=== PATIENT | male | born 1960 | race Caucasian/White ===

== ENCOUNTER → 2018-08-01 13:54 | Outpatient (CLI) | payer MEDICARE, MEDICAID, SELFPAY ==
[2018-08-01 14:37] LABS: Add Manual Diff / Slide Review NO; Eosinophils Percent Auto 3.4 % (2-4); Hematocrit 45.8 % (41-53); Hemoglobin 15.6 g/dL (13.5-17.5); Lymphocytes Percent Auto 23.5 % (25-40); Mean Corpuscular Hemoglobin 32.7 PG (26-34); Mean Corpuscular Volume 95.9 fL (80-100); Monocytes Percent Auto 10.1 % (3-14); Neutrophils Absolute Auto 4200 /uL (3000-5900); Platelet Count 194 X10^3/uL (150-400); Red Blood Cell Count 4.78 X10^6/uL (4.5-5.9); Red Cell Distribution Width 12.7 % (11.6-14.8); White Blood Cell Count 6.8 X10^3/uL (4.5-11.0)
[2018-08-01 14:52] LABS: Alanine Aminotransferase 48 IU/L (21-72); Albumin 4.6 g/dL (3.5-5.0); Albumin Globulin Ratio 1.6 (1.0-2.8); Alkaline Phosphatase 72 U/L (38-126); Aspartate Aminotransferase 31 IU/L (17-59); Bilirubin Total 0.8 mg/dL (0.2-1.3); Blood Urea Nitrogen 12 mg/dL (9-20); Calcium 9.2 mg/dL (8.4-10.2); Carbon Dioxide 28 mmol/L (22-32); Chloride 104 mmol/L (98-107); Estimated Glomerular Filt Rate > 60.0 mL/min (>60); Globulin 2.9 g/dL (1.7-4.1); Glucose 92 mg/dL (70-100); HEMOLYSIS < 15 (0-50); Potassium 3.6 mmol/L (3.4-5.1); Sodium 141 mmol/L (137-145); Total Protein 7.5 g/dL (6.3-8.2)
== END ==
PROVIDERS: Family Provider Internal Medicine; PCP Internal Medicine; Visit Provider Internal Medicine
DX: J44.9 Chronic obstructive pulmonary disease, unspecified (principal); K52.9 Noninfective gastroenteritis and colitis, unspecified
CPT/HCPCS: 36415; 80053; 85025

== ENCOUNTER → 2019-09-01 14:47 | Outpatient (CLI) | payer MEDICARE, MEDICAID, SELFPAY ==
[2019-09-01 15:59] LABS: Alanine Aminotransferase 34 IU/L (<50); Albumin 4.6 g/dL (3.5-5.0); Albumin Globulin Ratio 1.6 (1.0-2.8); Alkaline Phosphatase 80 U/L (38-126); Aspartate Aminotransferase 36 IU/L (17-59); BUN Creatinine Ratio 12.5 (6-22); Bilirubin Total 1.2 mg/dL (0.2-1.3); Blood Urea Nitrogen 10 mg/dL (9-20); Calcium 9.7 mg/dL (8.4-10.2); Carbon Dioxide 30 mmol/L (22-32); Chloride 101 mmol/L (98-107); Cholesterol 186 mg/dL (140-199); Estimated Glomerular Filt Rate > 60.0 mL/min (>60); Globulin 2.8 g/dL (1.7-4.1); Glucose 98 mg/dL (80-110); HDL Cholesterol 64 mg/dL (40-60); HEMOLYSIS < 15 (0-50); LDL Cholesterol Calculated 94 mg/dL (<100); Potassium 3.8 mmol/L (3.4-5.1); Sodium 140 mmol/L (137-145); Total Protein 7.4 g/dL (6.3-8.2); Triglycerides 139 mg/dL (35-150)
== END ==
PROVIDERS: PCP Internal Medicine; Visit Provider Internal Medicine
DX: E78.2 Mixed hyperlipidemia (principal); I10 Essential (primary) hypertension; J44.9 Chronic obstructive pulmonary disease, unspecified
CPT/HCPCS: 36415; 80053; 80061

== ENCOUNTER → 2021-01-13 14:07 | Outpatient (CLI) | payer MEDICARE, SELFPAY ==
[2021-01-13 17:56] LABS: Alanine Aminotransferase 33 IU/L (<50); Albumin Globulin Ratio 1.3 (1.0-2.8); Alkaline Phosphatase 85 U/L (38-126); Aspartate Aminotransferase 44 IU/L (17-59); BUN Creatinine Ratio 12.8 (6-22); Bilirubin Total 0.6 mg/dL (0.2-1.3); Blood Urea Nitrogen 10 mg/dL (9-20); Calcium 9.1 mg/dL (8.4-10.2); Carbon Dioxide 34 mmol/L (22-32); Chloride 101 mmol/L (98-107); Estimated Glomerular Filt Rate > 60.0 mL/min (>60); Globulin 3.1 g/dL (1.7-4.1); Glucose 107 mg/dL (80-110); HEMOLYSIS < 15 (0-50); Potassium 3.7 mmol/L (3.4-5.1); Sodium 139 mmol/L (137-145); Total Protein 7.1 g/dL (6.3-8.2)
== END ==
PROVIDERS: PCP Internal Medicine; Referring Provider Internal Medicine; Visit Provider Internal Medicine
DX: E78.2 Mixed hyperlipidemia (principal); I10 Essential (primary) hypertension; J44.9 Chronic obstructive pulmonary disease, unspecified
CPT/HCPCS: 36415; 80053

== ENCOUNTER → 2021-07-12 11:38 | Outpatient (CLI) | payer MEDICARE, MEDICAID, SELFPAY ==
--- NOTE | 2021-07-12 11:40 | DI.MRI.S_ITS ---
PROCEDURE: MR KNEE RT WO CON INDICATIONS: Pain in right knee TECHNIQUE: Noncontrast sagittal PD fast spin echo and T2 fast spin echo with fat saturation, sagittal 3-D FLASH with fat saturation; coronal T1 spin echo and PD fast spin echo with fat saturation, and axial PD fast spin echo with fat saturation through the knee. COMPARISON: None. FINDINGS: Image quality: Excellent. Menisci: There is large complex tear involving the anterior horn and body of the lateral meniscus. There is also tear of the free edge of the posterior horn of the lateral meniscus. An oblique tear is noted at the junction of body and the posterior horn of the medial meniscus. The meniscal root ligaments appear intact. Cruciate ligaments: The anterior and posterior cruciate ligaments appear intact. Medial structures: The medial collateral ligament appears intact. The semimembranosus tendon insertions and meniscocapsular junction appear intact. Visualized portions of the pes anserinus tendons appear normal. No abnormal bursal fluid. Lateral structures: There is partial tear of the lateral collateral ligament, The biceps femoris tendon appears intact. The popliteus tendon appears normal. Iliotibial band appears normal. Anterior structures: The quadriceps and patellar tendons appear intact. Patellar alignment is normal. No femoral trochlear dysplasia or ventral trochlear prominence. No edema in the infrapatellar fat pad. Nonspecific soft tissue swelling anterior to patella, likely secondary to contusion. Bones and cartilage: No fractures. There is tricompartmental chondral malacia. Marrow edema in the lateral tibial plateau, compatible with bone contusion Joint space: There is moderate knee joint effusion. No Ovalle's cyst. Normal appearing synovial plicae are incidentally noted. IMPRESSION: 1. Large complex tear of the anterior horn and body of the lateral meniscus, as well as tear of the free edge of the posterior horn of the lateral meniscus. 2. Oblique tear at the junction of the body and posterior horn of the medial meniscus. 3. Partial tear of the lateral collateral ligament. The biceps femoris tendon and iliotibial band appear intact. 4. There is marrow contusion in the lateral tibial plateau. 5. Moderate knee joint effusion. Dictated by: Janeth Nix M.D. on 07/14/2021 at 8:41 Approved by: Janeth Nix M.D. on 07/14/2021 at 8:58
== END ==
PROVIDERS: PCP Internal Medicine; Referring Provider Orthopaedic Surgery Foot and Ankle Surgery; Visit Provider Orthopaedic Surgery Foot and Ankle Surgery
DX: M25.561 Pain in right knee (principal); S83.271A Complex tear of lateral meniscus, current injury, right knee, initial encounter; S83.241A Other tear of medial meniscus, current injury, right knee, initial encounter; S83.421A Sprain of lateral collateral ligament of right knee, initial encounter; M25.461 Effusion, right knee
CPT/HCPCS: 73721

== ENCOUNTER → 2022-03-02 14:24 | Outpatient (CLI) | payer MEDICARE, MEDICAID, SELFPAY ==
[2022-03-02 15:05] LABS: Add Manual Diff / Slide Review NO; Basophils Absolute Auto 100 /uL (0-100); Basophils Percent Auto 0.9 % (0-2); Eosinophils Absolute Auto 200 /uL (0-450); Eosinophils Percent Auto 3.4 % (2-4); Hematocrit 44.5 % (41-53); Hemoglobin 15.4 g/dL (13.5-17.5); Lymphocytes Absolute Auto 1700 /uL (1100-4500); Lymphocytes Percent Auto 24.8 % (25-40); Mean Corpuscular HGB Conc 34.6 % (30-36); Mean Corpuscular Hemoglobin 33.5 PG (26-34); Mean Corpuscular Volume 96.9 fL (80-100); Monocytes Absolute Auto 700 /uL (0-900); Monocytes Percent Auto 9.7 % (3-14); Neutrophils Absolute Auto 4300 /uL (1500-7000); Neutrophils Percent Auto 61.2 % (50-75); Platelet Count 203 X10^3/uL (150-400); Red Cell Distribution Width 13.2 % (11.6-14.8)
[2022-03-02 15:35] LABS: Alanine Aminotransferase 46 IU/L (<50); Albumin 4.6 g/dL (3.5-5.0); Albumin Globulin Ratio 1.5 (1.0-2.8); Alkaline Phosphatase 81 U/L (38-126); Aspartate Aminotransferase 48 IU/L (17-59); BUN Creatinine Ratio 15.1 (6-22); Bilirubin Total 0.9 mg/dL (0.2-1.3); Blood Urea Nitrogen 13 mg/dL (9-20); Calcium 8.8 mg/dL (8.4-10.2); Carbon Dioxide 28 mmol/L (22-32); Chloride 101 mmol/L (98-107); Estimated Glomerular Filt Rate > 60 mL/min (>60); Glucose 98 mg/dL (80-110); HEMOLYSIS < 15 (0-50); Potassium 3.3 mmol/L (3.4-5.1); Sodium 138 mmol/L (137-145); Total Protein 7.6 g/dL (6.3-8.2)
[2022-03-02 16:05] LABS: TSH w/ Reflex to FT4 2.59 uIU/mL (0.47-4.68)
== END ==
PROVIDERS: PCP Internal Medicine; Referring Provider Internal Medicine; Visit Provider Internal Medicine
DX: I10 Essential (primary) hypertension (principal); E78.2 Mixed hyperlipidemia
CPT/HCPCS: 36415; 80053; 84443; 85025

== ENCOUNTER → 2023-03-05 12:23 | Outpatient (CLI) | payer MEDICARE, MEDICAID, SELFPAY ==
[2023-03-05 13:47] LABS: Alanine Aminotransferase 41 IU/L (<50); Albumin 4.3 g/dL (3.5-5.0); Albumin Globulin Ratio 1.5 (1.0-2.8); Alkaline Phosphatase 108 U/L (38-126); Aspartate Aminotransferase 36 IU/L (17-59); BUN Creatinine Ratio 22.1 (6-22); Bilirubin Total 0.5 mg/dL (0.2-1.3); Blood Urea Nitrogen 17 mg/dL (9-20); Calcium 8.8 mg/dL (8.4-10.2); Carbon Dioxide 32 mmol/L (22-32); Chloride 98 mmol/L (98-107); Cholesterol 152 mg/dL (140-199); Estimated Glomerular Filt Rate > 60 mL/min (>60); Globulin 2.8 g/dL (1.7-4.1); Glucose 103 mg/dL (80-110); HDL Cholesterol 59 mg/dL (40-60); HEMOLYSIS < 15 (0-50); LDL Cholesterol Calculated 69 mg/dL (<100); Potassium 3.5 mmol/L (3.4-5.1); Sodium 138 mmol/L (137-145); Total Protein 7.1 g/dL (6.3-8.2); Triglycerides 122 mg/dL (35-150)
[2023-03-05 14:10] LABS: Prostate Specific Antigen Scrn 0.693 ng/mL (0.1-4.0)
== END ==
PROVIDERS: PCP Internal Medicine; Referring Provider Internal Medicine; Visit Provider Internal Medicine
DX: E78.2 Mixed hyperlipidemia (principal); Z12.5 Encounter for screening for malignant neoplasm of prostate; I10 Essential (primary) hypertension; K52.9 Noninfective gastroenteritis and colitis, unspecified
CPT/HCPCS: 36415; 80053; 80061; G0103

== ENCOUNTER → 2023-03-09 11:38 | Outpatient (CLI) | payer MEDICARE, MEDICAID, SELFPAY ==
--- NOTE | 2023-03-09 11:40 | DI.RAD.S_ITS ---
PROCEDURE: XR CHEST 2V INDICATIONS: cough TECHNIQUE: 2 views of the chest were acquired. COMPARISON: Merged With [facility], , CHEST 2 VIEW, 03/18/2012, 12:01. FINDINGS: Surgical changes and devices: None. Lungs and pleura: Lungs are clear. No pleural effusions or pneumothorax. Pleural-parenchymal scarring at the right costophrenic angle is stable. Mediastinum: Mediastinal contours are normal. Heart size is normal. Bones and chest wall: No suspicious bony abnormalities. Soft tissues appear unremarkable. IMPRESSION: No acute cardiopulmonary disease process. Dictated by: Rekha Lock MD, PhD on 03/09/2023 at 13:42 Approved by: Rekha Lock MD, PhD on 03/09/2023 at 13:43
[2023-03-09 12:33] LABS: Add Manual Diff / Slide Review NO; Basophils Absolute Auto 100 /uL (0-100); Basophils Percent Auto 0.7 % (0-2); Eosinophils Absolute Auto 300 /uL (0-450); Eosinophils Percent Auto 3.6 % (2-4); Hematocrit 44.8 % (41-53); Hemoglobin 15.5 g/dL (13.5-17.5); Lymphocytes Absolute Auto 1300 /uL (1100-4500); Lymphocytes Percent Auto 18.7 % (25-40); Mean Corpuscular HGB Conc 34.7 % (30-36); Mean Corpuscular Hemoglobin 33.7 PG (26-34); Mean Corpuscular Volume 97.2 fL (80-100); Monocytes Absolute Auto 700 /uL (0-900); Monocytes Percent Auto 10.3 % (3-14); Neutrophils Absolute Auto 4800 /uL (1500-7000); Neutrophils Percent Auto 66.7 % (50-75); Platelet Count 226 X10^3/uL (150-400); Red Blood Cell Count 4.61 X10^6/uL (4.5-5.9); Red Cell Distribution Width 13.2 % (11.6-14.8); White Blood Cell Count 7.2 X10^3/uL (4.5-11.0)
[2023-03-09 12:47] LABS: NT-proBNP (BNP-Adult 18+) 49 pg/mL (<125)
== END ==
PROVIDERS: PCP Internal Medicine; Referring Provider Internal Medicine; Visit Provider Internal Medicine
DX: I50.9 Heart failure, unspecified (principal); J44.9 Chronic obstructive pulmonary disease, unspecified
CPT/HCPCS: 36415; 71046; 83880; 85025

== ENCOUNTER → 2023-11-02 16:01 | Outpatient (CLI) | payer MEDICARE, MEDICAID, SELFPAY ==
[2023-11-02 18:05] LABS: Add Manual Diff / Slide Review NO; Basophils Absolute Auto 0 /uL (0-100); Basophils Percent Auto 0.5 % (0-2); Eosinophils Absolute Auto 700 /uL (0-450); Eosinophils Percent Auto 8.5 % (2-4); Hematocrit 38.3 % (41-53); Hemoglobin 13.1 g/dL (13.5-17.5); Lymphocytes Absolute Auto 2100 /uL (1100-4500); Mean Corpuscular HGB Conc 34.1 % (30-36); Mean Corpuscular Hemoglobin 32.8 PG (26-34); Mean Corpuscular Volume 96.2 fL (80-100); Monocytes Absolute Auto 800 /uL (0-900); Monocytes Percent Auto 8.8 % (3-14); Neutrophils Absolute Auto 5100 /uL (1500-7000); Neutrophils Percent Auto 58.2 % (50-75); Platelet Count 297 X10^3/uL (150-400); Red Blood Cell Count 3.98 X10^6/uL (4.5-5.9); Red Cell Distribution Width 13.5 % (11.6-14.8); White Blood Cell Count 8.7 X10^3/uL (4.5-11.0)
[2023-11-02 18:31] LABS: Alanine Aminotransferase 17 IU/L (<50); Albumin 4.2 g/dL (3.5-5.0); Albumin Globulin Ratio 1.2 (1.0-2.8); Alkaline Phosphatase 83 U/L (38-126); Aspartate Aminotransferase 24 IU/L (17-59); BUN Creatinine Ratio 21.4 (6-22); Bilirubin Total 0.6 mg/dL (0.2-1.3); Blood Urea Nitrogen 25 mg/dL (9-20); Calcium 9.2 mg/dL (8.4-10.2); Carbon Dioxide 31 mmol/L (22-32); Chloride 96 mmol/L (98-107); Estimated Glomerular Filt Rate > 60 mL/min (>60); Globulin 3.5 g/dL (1.7-4.1); Glucose 94 mg/dL (80-110); HEMOLYSIS < 15 (0-50); Magnesium 1.4 mg/dL (1.6-2.3); Potassium 3.8 mmol/L (3.4-5.1); Sodium 138 mmol/L (137-145); Total Protein 7.7 g/dL (6.3-8.2)
[2023-11-02 18:46] LABS: Free T4, Direct Thyroxine 1.05 ng/dL (0.78-2.19)
[2023-11-02 19:00] LABS: Thyroid Stimulating Hormone 2.84 uIU/mL (0.47-4.68)
== END ==
PROVIDERS: PCP Internal Medicine; Referring Provider Internal Medicine; Visit Provider Internal Medicine
DX: E78.2 Mixed hyperlipidemia (principal); I10 Essential (primary) hypertension; R60.9 Edema, unspecified; E03.9 Hypothyroidism, unspecified
CPT/HCPCS: 36415; 80053; 83735; 84439; 84443; 85025

== ENCOUNTER → 2023-11-15 13:43 | Outpatient (CLI) | payer MEDICARE, MEDICAID, SELFPAY | LOC: CAR 13:44 | PROVIDERS: PCP Internal Medicine; Referring Provider Internal Medicine; Visit Provider Internal Medicine | DX: R55 Syncope and collapse (principal) | CPT/HCPCS: 93242 ==

== ENCOUNTER → 2023-12-27 10:34 | Outpatient (CLI) | payer MEDICARE, MEDICAID, SELFPAY ==
--- NOTE | 2023-12-27 10:35 | DI.ECHO.S_ITS ---
[facility]---------+ [facility] +---------+ : : [address] : : : : [id number] : : : : Phone: [phone]+ Echocardiogram Report + + :Name: JUDY DOZIER Study Date: 12/27/2023 Height: 73 in : :[facility] [employer] [facility] ReadingLocation: Weight: 235 lb : : Gender: Male BSA: 2.3 m2 : :: 1960 Age: 63 yrs BP: 148/100 mmHg: :Reason For Study: DYSPNEA, SYNCOPE AND COLLAPSE : :Ordering Physician: JUAN, : :KIMBERLEE Smith Performed By: Benedict Cheung : :Referring: KIMBERLEE MARTINEZ : + + Interpretation Summary The study quality was technically difficult. The ejection fraction is estimated to be 55-60%. Grade I diastolic dysfunction. The right ventricular systolic function is normal. No significant valvular abnormality. The IVC is of normal diameter and collapses greater than 50% with a sniff. This suggests a low right atrial pressure of 3 mm Hg. Procedure: A two-dimensional transthoracic echocardiogram with color flow and Doppler was performed. The study quality was technically difficult. There is no prior echocardiogram noted for this patient. The patient was in normal sinus rhythm during the exam. The heart rate ranged between 75-100 bpm during the study. Left Ventricle: There is mild concentric left ventricular hypertrophy. The left ventricle is normal in size. The ejection fraction is estimated to be 55- 60%. There are no obvious focal wall motion abnormalities noted but poor endocardial definition reduces the sensitivity for the detection of such. Grade I diastolic dysfunction. Right Ventricle: The right ventricle is mildly dilated. The right ventricular systolic function is normal. Atria: The left atrium is mildly dilated. Right atrial size is normal. The interatrial septum grossly appears intact with no obvious evidence for an atrial septal defect. Mitral Valve: The mitral valve is normal. There is no mitral valve stenosis. There is trace mitral regurgitation. Aortic Valve: The aortic valve is trileaflet. There is no aortic valve stenosis. No aortic regurgitation is present. Tricuspid Valve: The tricuspid valve is normal. There is no tricuspid stenosis. No tricuspid regurgitation. Pulmonic Valve: The pulmonic valve is not well visualized. There is no pulmonic valvular stenosis. There is no pulmonic valvular regurgitation. Great Vessels: The aortic root is normal size. The ascending aorta could not be visualized. The IVC is of normal diameter and collapses greater than 50% with a sniff. This suggests a low right atrial pressure of 3 mm Hg. Pericardium/ Pleura There is no pericardial effusion. There is no pleural effusion. MMode/2D Measurements & Calculations LVIDd: 4.7 cm LVOT diam: 2.5 cm LVIDs: 3.7 cm Ao root diam: 3.7 cm FS: 21.2 % Ao Arch Diam (Prox Trans): 2.8 cm IVSd: 1.3 cm LVPWd: 1.1 cm LV holliday. diameter/BSA (cm/m^2): 2.0 LV sys. diameter/BSA (cm/m^2): 1.6 LA A2 area: 26.5 cm2 RA long axis: 5.2 cm LA A4 area: 23.2 cm2 RA area: 17.0 cm2 LA length (vol): 6.1 cm RA vol: 47.3 ml LA vol: 85.4 ml RA : 20.5 ml/m2 LA vol index: 37.0 ml/m2 IVC diam: 2.1 cm RVD1 (basal): 4.1 cm RVD2 (mid): 4.1 cm TAPSE: 2.7 cm Doppler Measurements & Calculations Ao V2 max: 142.8 cm/sec LVOT Max Michael: 105.2 cm/sec Ao V2 mean: 103.2 cm/sec LV V1 max P.4 mmHg Ao max P.2 mmHg LV V1 VTI: 23.5 cm Ao mean P.6 mmHg CARLOS ALBERTO(I,D): 3.9 cm2 Ao V2 VTI: 29.1 cm CARLOS ALBERTO(V,D): 3.6 cm2 sev ratio: 0.81 CARLOS ALBERTO indexed to BSA (cm^2/m^2): 1.7 MV E max michael: 61.3 cm/sec PA V2 max: 130.8 cm/sec MV A max michael: 77.8 cm/sec PA V2 mean: 84.1 cm/sec MV E/A: 0.79 PA mean P.2 mmHg Med Peak E' Michael: 4.6 cm/sec PA pr(Accel): 17.3 mmHg E/E' med: 13.3 Lat Peak E' Michael: 8.1 cm/sec E/E' lat: 7.5 E/e' average: 10.4 MV dec time: 0.24 sec SVLVOT): 113.4 ml Reading Physician:OSMAN
== END ==
LOC: ECHO 10:34
PROVIDERS: PCP Internal Medicine; Referring Provider Internal Medicine; Visit Provider Internal Medicine
DX: R06.00 Dyspnea, unspecified (principal); R55 Syncope and collapse
CPT/HCPCS: 93306

== ENCOUNTER 2024-09-04 03:40 | Emergency (ER) | payer MEDICARE, MEDICAID, SELFPAY ==
[2024-09-04] VITALS (12 sets, daily range): BP systolic 152–184; BP diastolic 84–113; PULSE 76–87; RESP 20–27; TEMP 36.8; O2SAT 92–97; BMI 31.6
--- NOTE | 2024-09-04 04:06 | DI.RAD.S_ITS ---
PROCEDURE: XR CHEST 1V INDICATIONS: chest pain TECHNIQUE: One view of the chest was acquired. COMPARISON: [facility], CR, XR CHEST 2V, 03/09/2023, 11:41. FINDINGS: Surgical changes and devices: Suture material in the right lung. Lungs and pleura: Lungs are clear. Blunting of the right costophrenic angle. No pneumothorax. Mediastinum: Mediastinal contours appear unchanged. Heart size appears prominent. Bones and chest wall: No suspicious bony lesions. Overlying soft tissues appear unremarkable. IMPRESSION: Small right pleural effusion. This report is concordant with the overnight preliminary interpretation. Dictated by: Eliazar Dias M.D. on 09/04/2024 at 8:05 Approved by: Eliazar Dias M.D. on 09/04/2024 at 8:07
--- NOTE | 2024-09-04 04:11 | EKG_ITS ---
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
[2024-09-04 04:14] LABS: INR 0.9 (0.9-1.3)
[2024-09-04 04:16] LABS: Add Manual Diff / Slide Review NO; Basophils Absolute Auto 0 /uL (0-100); Basophils Percent Auto 0.4 % (0-2); Eosinophils Absolute Auto 100 /uL (0-450); Eosinophils Percent Auto 1.8 % (2-4); Hematocrit 46.6 % (41-53); Hemoglobin 15.4 g/dL (13.5-17.5); Lymphocytes Absolute Auto 1300 /uL (1100-4500); Lymphocytes Percent Auto 18.4 % (25-40); Mean Corpuscular HGB Conc 33.2 % (30-36); Mean Corpuscular Hemoglobin 33.2 PG (26-34); Mean Corpuscular Volume 100.2 fL (80-100); Monocytes Absolute Auto 800 /uL (0-900); Monocytes Percent Auto 10.9 % (3-14); Neutrophils Absolute Auto 5000 /uL (1500-7000); Neutrophils Percent Auto 68.5 % (50-75); Platelet Count 173 X10^3/uL (150-400); Red Blood Cell Count 4.65 X10^6/uL (4.5-5.9); Red Cell Distribution Width 15.3 % (11.6-14.8); White Blood Cell Count 7.3 X10^3/uL (4.5-11.0)
[2024-09-04 04:17] LABS: PTT Partial Thromboplastin Tim 30 SECONDS (25.1-36.5)
[2024-09-04 04:20] LABS: Alanine Aminotransferase 41 IU/L (<50); Albumin 3.8 g/dL (3.5-5.0); Albumin Globulin Ratio 1.2 (1.0-2.8); Alkaline Phosphatase 110 U/L (38-126); Aspartate Aminotransferase 50 IU/L (17-59); BUN Creatinine Ratio 23.7 (6-22); Bilirubin Total 0.6 mg/dL (0.2-1.3); Blood Urea Nitrogen 18 mg/dL (9-20); Calcium 8.7 mg/dL (8.4-10.2); Carbon Dioxide 30 mmol/L (22-32); Chloride 101 mmol/L (98-107); Creatine Kinase 230 U/L (55-170); Estimated Glomerular Filt Rate > 60 mL/min (>60); Globulin 3.2 g/dL (1.7-4.1); Glucose 105 mg/dL (80-110); HEMOLYSIS 31 (0-50); Lipase 80 U/L (23-300); Magnesium 1.6 mg/dL (1.6-2.3); Potassium 3.6 mmol/L (3.4-5.1); Sodium 135 mmol/L (137-145)
--- NOTE | 2024-09-04 04:25 | ED.SOB ---
HPI - SOB/Dyspnea General Chief Complaint: Shortness of Breath/Dyspnea Stated Complaint: abd distention Time Seen by Provider: 09/04/24 04:12 Source: patient and EMS Mode of arrival: EMS Limitations: no limitations History of Present Illness HPI Narrative: Patient is 63-year-old male history of COPD not on home oxygen presenting today with increasing or leg swelling. He reports that over the last 5-8 days he is noted some increased swelling in his legs. He feels like his abdomen is distended. He has no changes in bowel or bladder habits. He also reports new orthopnea which he has not had previously. No fever or chills or weakness. He does have quite a bit of what he feels like abdominal bloating as well no. Fever or chills. He just feels like his legs are more swollen the breathing is getting worse. Related Data Previous Rx's Medication Instructions Recorded nebulizer and compressor #1 ea 01/06/22 albuterol sulfate 90 mcg/actuation See Rx Instructions .Route 03/31/23 aerosol inhaler (Ventolin HFA) .COMPLEX #18 grams albuterol sulfate 2.5 mg/3 mL 2.5 mg (3 mL) inhalation QID PRN 04/22/23 (0.083 %) solution for nebulization shortness of breath or wheezing #180 mL ipratropium bromide 0.02 % 2.5 ml inhalation QID #150 mL 06/07/23 solution for inhalation lisinopril 20 mg tablet 20 mg PO DAILY #90 tabs 07/26/23 torsemide 20 mg tablet 20 mg PO DAILY #90 tabs 07/26/23 pantoprazole 40 mg tablet,delayed 40 mg PO DAILY #30 tabs 10/29/23 release budesonide 0.5 mg/2 mL suspension 0.5 mg (2 mL) inhalation BID #60 mL 06/09/24 for nebulization fluticasone propionate 50 2 spray intranasal HS #16 grams 08/07/24 mcg/actuation nasal spray,suspension hydrocodone 10 mg-acetaminophen 1 - 2 tab PO Q4H PRN pain #220 tabs 08/07/24 325 mg tablet hydrocodone 10 mg-acetaminophen 1 - 2 tab PO Q4H PRN pain #220 tabs 08/07/24 325 mg tablet hydrocodone 10 mg-acetaminophen 1 - 2 tab PO Q4HP PRN back pain 08/07/24 325 mg tablet #220 tabs prednisone 20 mg tablet 20 mg PO DAILY #90 tabs 08/07/24 furosemide 20 mg tablet (Lasix) 20 mg PO DAILY #5 tabs 09/04/24 Allergies Allergy/AdvReac Type Severity Reaction Status Date / Time bupropion [BUPROPION] AdvReac Intermediate dry mouth Verified 08/07/24 15:22 mirtazapine [MIRTAZAPINE] AdvReac Intermediate mood Verified 08/07/24 15:22 instability/anger/etc amlodipine AdvReac Mild edema Verified 08/07/24 15:22 Patient History Medical History Uncomplicated opioid dependence Chronic back pain Hypertension COPD (chronic obstructive pulmonary disease) Chronic diarrhea of unknown origin (06/18/15) Bilateral low back pain without sciatica (06/18/15) Chronic depression (06/18/15) Smoker unmotivated to quit (06/18/15) Mixed hyperlipidemia Gastroesophageal reflux disease with esophagitis History of adenomatous polyp of colon (04/15/11) Agustin's esophagus without dysplasia (~2009) Primary insomnia (04/15/11) Surgical History History of lobectomy of lung Family History Mother Congenital heart defect Social History marital status: number of children: 0 household members: none lives independently: Yes caregiver/support person: No housing: other (Mobile home) pets and animals: Yes education level: middle school (7th Grade) occupational status: other (Retired, permanent disability) current occupational exposures/hazards: No Previous occupational history: Various kamini/pentecostalism: Non-yazidism leisure activities: other (Dog walks) Smoking Status: Current every day smoker Tobacco: How many years used: 40 Smokeless tobacco user: other (Cigarettes) quit status: has quit before alcohol intake: current (Occasionally) substance use type: does not use Smoking Status: Current every day smoker Exam Initial Vital Signs Initial Vital Signs: Vital Signs Pulse Rate 80 09/04/24 03:42 Pulse Oximetry 97 09/04/24 03:42 GENERAL: Alert pleasant 63-year-old and in no acute distress. HEENT: Head atraumatic,EOMI, pupils reactive, face symmetric, moist mucous membranes CARDIOVASCULAR: Regular rate and rhythm without murmurs, rubs or gallops. RESPIRATORY: Breath sounds equal bilaterally, no wheezes rales or rhonchi. ABDOMEN: Soft, nontender. Normoactive bowel sounds all 4 quadrants. No guarding or rebound. EXTREMITIES: Normal range of motion, no clubbing. +2 pitting edema Neurovascularly intact NEUROLOGICAL: Alert and oriented x4.Normal gait and speech. Cranial nerves II through XII grossly intact. SKIN: Warm, dry, no laceration, no petechiae, no rashes or lesions. Course Orders Ordered: Discontinued Medications Albuterol/Ipratropium (Albuterol/Ipratropium 3 Ml Ampul) 3 ml INH NOW ONE Stop: 09/04/24 04:26 Last Admin: 09/04/24 04:46 Dose: 3 ml Documented By: NICOLA Furosemide (Furosemide 40 Mg/4 Ml Vial) 20 mg IV NOW ONE Stop: 09/04/24 05:36 Last Admin: 09/04/24 05:44 Dose: 20 mg Documented By: ALEXANDREA Methylprednisolone (Methylprednisolone 125 Mg/2 Ml Vial) 125 mg IV NOW ONE Stop: 09/04/24 04:26 Last Admin: 09/04/24 04:30 Dose: 125 mg Documented By: ALEXANDREA Vital Signs Vital signs: Vital Signs - 8 hr 09/04/24 03:42 09/04/24 03:43 09/04/24 03:43 Temperature Pulse Rate 80 83 Respiratory Rate Blood Pressure 184/113 H Pulse Oximetry 97 97 Oxygen Delivery Method Fraction of Inspired Oxygen 09/04/24 04:00 09/04/24 04:01 09/04/24 04:01 Temperature Pulse Rate 77 78 Respiratory Rate Blood Pressure 152/84 H Pulse Oximetry 96 96 Oxygen Delivery Method Fraction of Inspired Oxygen 09/04/24 04:08 09/04/24 04:30 09/04/24 04:30 Temperature 98.2 F Pulse Rate 85 76 Respiratory Rate 22 22 Blood Pressure 184/113 H 160/97 H Pulse Oximetry 97 95 Oxygen Delivery Method Room Air Fraction of Inspired Oxygen 09/04/24 04:48 Temperature Pulse Rate 78 Respiratory Rate 20 Blood Pressure Pulse Oximetry 96 Oxygen Delivery Method Room Air Fraction of Inspired Oxygen 21 MDM - SOB/Dyspnea Lab Data 09/04/24 03:53 09/04/24 03:53 Labs: Lab Results 09/04/24 Range/Units 03:53 WBC 7.3 (4.5-11.0) X10^3/uL RBC 4.65 (4.5-5.9) X10^6/uL Hgb 15.4 (13.5-17.5) g/dL Hct 46.6 (41-53) % MCV 100.2 H (80-100) fL MCH 33.2 (26-34) PG MCHC 33.2 (30-36) % RDW 15.3 H (11.6-14.8) % Plt Count 173 (150-400) X10^3/uL Neut % (Auto) 68.5 (50-75) % Lymph % (Auto) 18.4 L (25-40) % [place] % (Auto) 10.9 (3-14) % Eos % (Auto) 1.8 L (2-4) % Baso % (Auto) 0.4 (0-2) % Neut # (Auto) 5000 (6323-0080) /uL Lymph # (Auto) 1300 (0689-0980) /uL [place] # (Auto) 800 (0-900) /uL Eos # (Auto) 100 (0-450) /uL Baso # (Auto) 0 (0-100) /uL PT 10.0 (9.4-12.5) SECONDS INR 0.9 (0.9-1.3) APTT 30 (25.1-36.5) SECONDS Sodium 135 L (137-145) mmol/L Potassium 3.6 (3.4-5.1) mmol/L Chloride 101 (98-107) mmol/L Carbon Dioxide 30 (22-32) mmol/L BUN 18 (9-20) mg/dL Creatinine 0.76 (0.66-1.25) mg/dL Estimated GFR > 60 (>60) mL/min BUN/Creatinine Ratio 23.7 H (6-22) Glucose 105 (80-110) mg/dL Calcium 8.7 (8.4-10.2) mg/dL Magnesium 1.6 (1.6-2.3) mg/dL Total Bilirubin 0.6 (0.2-1.3) mg/dL AST 50 (17-59) IU/L ALT 41 (<50) IU/L Alkaline Phosphatase 110 (38-126) U/L Total Creatine Kinase 230 H (55-170) U/L Troponin I 0.013 (0.01-0.034) ng/mL NT-Pro-B Natriuret Pep 296 H (<125) pg/mL Total Protein 7.0 (6.3-8.2) g/dL Albumin 3.8 (3.5-5.0) g/dL Globulin 3.2 (1.7-4.1) g/dL Albumin/Globulin Ratio 1.2 (1.0-2.8) Lipase 80 (23-300) U/L Imaging Data Chest x-ray: Radiologist's Impression: Small right pleural effusion ECG Data Attestation: I personally reviewed and interpreted this ECG as follows: Prior ECG tracings: available for review Interpretation: Sinus rhythm rate 79 OR 56 QRS 84 QTC 451 PVC noted who to changes MDM Narrative Medical decision making narrative: [facility] CC: Shortness of breath leg swelling abdominal swelling Complicating co-morbidities: Chronic COPD, hypertension Medical records reviewed: Previous PCP knows do report that he has been fatigued quite short of breath he had an echo 12/27/2023 which does show EF of 55-60% with a grade 1 diastolic dysfunction Differential considered: Respiratory illness COPD exacerbation CHF Exam documented above, pertinent findings include: Overall appears fluid overloaded he has peripheral edema feels like his abdomen has some edema as well Lab Test results independently reviewed as above. Pertinent findings: WBC 7.3 hemoglobin 15.4 hematocrit 46.6 Sodium 135 potassium 3.6 chloride 101 bicarb 30 BUN 13 creatinine 0.76 Bilirubin 0.6 AST 50 ALT 41 alk-phos 110 CPK 230 Troponin negative Independently reviewed EKG as above no ischemia PVC Imaging studies independently reviewed: Chest x-ray is small right pleural effusion Consultations: Need a consult for social work, they are currently not here but they can call later today Treatments: Lasix albuterol Solu-Medrol Re-evaluations: After albuterol unless Solu-Medrol patient did actually have improvement. Patient did urinate quite a bit after Lasix Discussion: 63-year-old male presenting today with increasing shortness of breath. He reports increasing swelling in his legs and abdomen. He does appear fluid overloaded he has a small right pleural effusion. He did have some improvement with albuterol. He has an echo that does show diastolic dysfunction. I suspect he is having more of a CHF exacerbation. He is given Lasix in the ED and urinated quite a bit. Patient goes on to say that he is incapable of taking care of himself due to his breathing. He tried to qualify for some home help apparently the computer said he did not meet criteria he is overall very frustrated he has a very poor support system. Take symptoms most consistent with a CHF exacerbation Discharge Plan Departure Patient Disposition: Home Clinical Impression: CHF (congestive heart failure) Instructions: DI for Heart Failure Activity Restrictions/Additional Instructions: *You have been diagnosed with CHF *What to do: At this time I think he will start feeling better once the fluid comes off. It social work will call you in the next couple of days to see what they can do to help Elevate your legs I also recommend some compression socks as well will help all the fluids *Continue to take medications as directed Lasix 20 mg once a day for 5 days *Follow up with your primary care provider in 2-3 days or call [phone] *Return to ER if you should have increasing difficulty breathing fever confusion or any new, worsening or concerning symptoms Prescriptions: New furosemide [Lasix] 20 mg tablet 20 mg PO DAILY Qty: 5 0RF No Action (DME) nebulizer and compressor Device See Rx Instructions .Route Qty: 1 0RF Rx Instructions: As directed albuterol sulfate [Ventolin HFA] 90 mcg/actuation HFA aerosol inhaler See Rx Instructions .ROUTE .COMPLEX Qty: 18 6RF Dose Instruction: inhale 1 to 2 puffs by mouth every 4 hours if needed Rx Instructions: inhale 1 to 2 puffs by mouth every 4 hours if needed albuterol sulfate 2.5 mg /3 mL (0.083 %) solution for nebulization 2.5 mg inhalation QID PRN (Reason: shortness of breath or wheezing) Qty: 180 3RF pantoprazole 40 mg tablet,delayed release (DR/EC) 40 mg PO DAILY Qty: 30 11RF ipratropium bromide 0.02 % solution 2.5 ml inhalation QID Qty: 150 7RF fluticasone propionate 50 mcg/actuation spray,suspension 2 spray Intranasal HS Qty: 16 3RF hydrocodone-acetaminophen 10-325 mg tablet 1 - 2 tab PO Q4HP PRN (Reason: back pain) Qty: 220 0RF hydrocodone-acetaminophen 10-325 mg tablet 1 - 2 tab PO Q4H MDD 8 tabs PRN (Reason: pain) Qty: 220 0RF hydrocodone-acetaminophen 10-325 mg tablet 1 - 2 tab PO Q4H MDD 8 tabs PRN (Reason: pain) Qty: 220 0RF prednisone 20 mg tablet 20 mg PO DAILY Qty: 90 0RF torsemide 20 mg tablet 20 mg PO DAILY Qty: 90 3RF lisinopril 20 mg tablet 20 mg PO DAILY Qty: 90 3RF budesonide 0.5 mg/2 mL suspension for nebulization 0.5 mg inhalation BID Qty: 60 6RF Referrals: Robert Zhou MD [Primary Care Provider] - Stand Alone Forms: Patient Portal/API/Survey
[2024-09-04] MEDS: methylPREDNISolone 125 MG/2 ML VIAL IV (04:30)
[2024-09-04 04:31] LABS: NT-proBNP (BNP-Adult 18+) 296 pg/mL (<125); Troponin I 0.013 ng/mL (0.01-0.034)
[2024-09-04] MEDS: ALBUTEROL/IPRATROPIUM 3 ML AMPUL INH (04:46)
[2024-09-04] MEDS: FUROSEMIDE 40 MG/4 ML VIAL 20 MG IV (05:44)
--- NOTE | 2024-09-05 11:54 | CM.SWNOTE ---
ED NAIL CUTTER Follow Up Note NAIL CUTTER receives follow up consult regarding patient's need for assistance at home. NAIL CUTTER reviews EMR. NAIL CUTTER calls patient and leaves VM. Karie Lew, GOVERNMENT SERVICE EXECUTIVE
== END 2024-09-04 06:58 | disposition home or self-care (01) ==
PROVIDERS: Emergency Provider Emergency Medicine; PCP Internal Medicine
DX: I11.0 Hypertensive heart disease with heart failure (principal); I50.9 Heart failure, unspecified; Z87.09 Personal history of other diseases of the respiratory system; F17.200 Nicotine dependence, unspecified, uncomplicated
CPT/HCPCS: 71045; 80053; 82550; 83690; 83735; 83880; 84484; 85025; 85610; 85730; 93005; 94640; 96374; 96375; 99284; J1940; J2919

== ENCOUNTER → 2024-10-06 15:28 | Outpatient (CLI) | payer MEDICARE, MEDICAID, SELFPAY ==
[2024-10-06 17:18] LABS: Alanine Aminotransferase 25 IU/L (<50); Albumin 4.2 g/dL (3.5-5.0); Albumin Globulin Ratio 1.6 (1.0-2.8); Alkaline Phosphatase 92 U/L (38-126); Aspartate Aminotransferase 28 IU/L (17-59); BUN Creatinine Ratio 13.3 (6-22); Bilirubin Total 1.4 mg/dL (0.2-1.3); Blood Urea Nitrogen 14 mg/dL (9-20); Calcium 8.9 mg/dL (8.4-10.2); Chloride 93 mmol/L (98-107); Estimated Glomerular Filt Rate > 60 mL/min (>60); Globulin 2.6 g/dL (1.7-4.1); Glucose 91 mg/dL (80-110); HEMOLYSIS < 15 (0-50); Magnesium 1.4 mg/dL (1.6-2.3); Potassium 3.7 mmol/L (3.4-5.1); Sodium 139 mmol/L (137-145); Total Protein 6.8 g/dL (6.3-8.2)
[2024-10-06 17:26] LABS: Carbon Dioxide 38 mmol/L (22-32)
[2024-10-06 17:32] LABS: NT-proBNP (BNP-Adult 18+) 487 pg/mL (<125)
== END ==
PROVIDERS: PCP Internal Medicine; Referring Provider Internal Medicine; Visit Provider Internal Medicine
DX: I11.0 Hypertensive heart disease with heart failure (principal); I50.9 Heart failure, unspecified; J44.9 Chronic obstructive pulmonary disease, unspecified
CPT/HCPCS: 36415; 80053; 83735; 83880

== ENCOUNTER 2024-11-27 08:22 | Emergency (ER) | payer MEDICARE, MEDICAID, SELFPAY ==
[2024-11-27] VITALS (50 sets, daily range): BP systolic 116–191; BP diastolic 65–107; PULSE 85–105; RESP 7–46; TEMP 36.6; O2SAT 83–98; BMI 35.1
--- NOTE | 2024-11-27 08:32 | EKG_ITS ---
[address] [address] [address], [place] [address] Test Date: 2024-11-27 Pat Name: Jace Bautista Department: Room: Gender: Male Title Clerk: ROHIT : 1960 Requested By: Order Number: [id number] Reading MD: Robert Zhou MD Measurements Intervals [place] Rate: 98 P: 69 ND: 160 QRS: 63 QRSD: 98 T: 39 QT: 354 QTc: 451 Interpretive Statements Normal sinus rhythm Electronically Signed On 11-27-2024 10:01:34 PDT by Robert Zhou MD
--- NOTE | 2024-11-27 08:32 | DI.RAD.S_ITS ---
PROCEDURE: XR CHEST 1V INDICATIONS: Shortness of breath TECHNIQUE: One view of the chest was acquired. COMPARISON: [facility], CR, XR CHEST 1V, 09/04/2024, 4:10. [facility], CR, XR CHEST 2V, 03/09/2023, 11:41. FINDINGS: Surgical changes and devices: Right lung wedge resection. Lungs and pleura: Stable right basilar opacity and blunting of the right costophrenic angle. Mediastinum: Mediastinal contours appear normal. Heart size is normal. Bones and chest wall: No suspicious bony lesions. Overlying soft tissues appear unremarkable. IMPRESSION: No acute cardiopulmonary process. Stable right basilar opacity with blunting of the right costophrenic angle, probably scarring. Dictated by: Carlos Eduardo Phillips M.D. on 11/27/2024 at 8:48 Approved by: Carlos Eduardo Phillips M.D. on 11/27/2024 at 8:49
[2024-11-27] MEDS: ALBUTEROL/IPRATROPIUM 3 ML AMPUL INH (08:43)
[2024-11-27 08:47] LABS: Add Manual Diff / Slide Review NO; Basophils Absolute Auto 100 /uL (0-100); Basophils Percent Auto 0.6 % (0-2); Eosinophils Absolute Auto 100 /uL (0-450); Eosinophils Percent Auto 1.1 % (2-4); Hematocrit 49.4 % (41-53); Hemoglobin 16.2 g/dL (13.5-17.5); Lymphocytes Absolute Auto 1400 /uL (1100-4500); Lymphocytes Percent Auto 17.1 % (25-40); Mean Corpuscular HGB Conc 32.8 % (30-36); Mean Corpuscular Hemoglobin 34.1 PG (26-34); Mean Corpuscular Volume 103.9 fL (80-100); Monocytes Absolute Auto 800 /uL (0-900); Neutrophils Absolute Auto 6100 /uL (1500-7000); Neutrophils Percent Auto 72.2 % (50-75); Platelet Count 169 X10^3/uL (150-400); Red Blood Cell Count 4.75 X10^6/uL (4.5-5.9); Red Cell Distribution Width 14.9 % (11.6-14.8); White Blood Cell Count 8.5 X10^3/uL (4.5-11.0)
[2024-11-27 08:53] LABS: INR 1.1 (0.9-1.3); Prothrombin Time 11.9 SECONDS (9.4-12.5)
[2024-11-27] MEDS: FUROSEMIDE 40 MG/4 ML VIAL IV ×2 (08:54→11:55)
[2024-11-27 08:57] LABS: Alanine Aminotransferase 56 IU/L (<50); Albumin 4.1 g/dL (3.5-5.0); Albumin Globulin Ratio 1.4 (1.0-2.8); Alkaline Phosphatase 88 U/L (38-126); Aspartate Aminotransferase 48 IU/L (17-59); BUN Creatinine Ratio 17.1 (6-22); Bilirubin Total 0.8 mg/dL (0.2-1.3); Blood Urea Nitrogen 14 mg/dL (9-20); Calcium 8.9 mg/dL (8.4-10.2); Carbon Dioxide 35 mmol/L (22-32); Chloride 100 mmol/L (98-107); Estimated Glomerular Filt Rate > 60 mL/min (>60); Globulin 2.9 g/dL (1.7-4.1); Glucose 113 mg/dL (80-110); HEMOLYSIS < 15 (0-50); Lactate (Lactic Acid) 1.6 mmol/L (0.7-2.1); Potassium 3.6 mmol/L (3.4-5.1); Sodium 139 mmol/L (137-145)
[2024-11-27] MEDS: NITROGLYCERIN OINT 1 INCH/GM OINT...G. 0.5 INCH TOP (09:02)
[2024-11-27 09:08] LABS: NT-proBNP (BNP-Adult 18+) 2290 pg/mL (<125); Troponin I 0.022 ng/mL (0.01-0.034)
--- NOTE | 2024-11-27 09:45 | ED.SOB ---
HPI - SOB/Dyspnea General Chief Complaint: Shortness of Breath/Dyspnea Stated Complaint: per pt fluid in lungs Time Seen by Provider: 11/27/24 08:35 Source: patient Mode of arrival: Ambulatory Limitations: no limitations History of Present Illness HPI Narrative: 63-year-old male with history of CHF, missed his weekend doses of Lasix due to lack of transportation to get his medication refilled, also has redness to the zcvbf-[id number]-ezhv-left leg, some concern about cellulitis, not currently on any antibiotics. No fevers or chills. Complains of increased shortness of breath. Denies chest pain. Denies recent cough or fever. Legs feel swollen, right side about the same as the left side. PCP Winnie. Related Data Previous Rx's Medication Instructions Recorded nebulizer and compressor #1 ea 01/06/22 albuterol sulfate 90 mcg/actuation See Rx Instructions .Route 03/31/23 aerosol inhaler (Ventolin HFA) .COMPLEX #18 grams albuterol sulfate 2.5 mg/3 mL 2.5 mg (3 mL) inhalation QID PRN 04/22/23 (0.083 %) solution for nebulization shortness of breath or wheezing #180 mL ipratropium bromide 0.02 % 2.5 ml inhalation QID #150 mL 06/07/23 solution for inhalation pantoprazole 40 mg tablet,delayed 40 mg PO DAILY #30 tabs 10/29/23 release budesonide 0.5 mg/2 mL suspension 0.5 mg (2 mL) inhalation BID #60 mL 06/09/24 for nebulization fluticasone propionate 50 2 spray intranasal HS #16 grams 08/07/24 mcg/actuation nasal spray,suspension lisinopril 20 mg tablet 20 mg PO DAILY #90 tabs 10/04/24 Disabled Parking #1 ea 10/06/24 torsemide 20 mg tablet 60 mg (3 x 20 mg) PO DAILY #270 10/06/24 tabs hydrocodone 10 mg-acetaminophen 1 - 2 tab PO Q4H PRN pain #220 tabs 10/30/24 325 mg tablet hydrocodone 10 mg-acetaminophen 1 - 2 tab PO Q4H PRN pain #220 tabs 10/30/24 325 mg tablet hydrocodone 10 mg-acetaminophen 1 - 2 tab PO Q4HP PRN back pain 10/30/24 325 mg tablet #220 tabs prednisone 20 mg tablet 10 mg (1/2 x 20 mg) PO DAILY #90 10/30/24 tabs cephalexin 500 mg capsule 500 mg PO QID 7 days #28 caps 11/27/24 Allergies Allergy/AdvReac Type Severity Reaction Status Date / Time bupropion [BUPROPION] AdvReac Intermediate dry mouth Verified 10/30/24 14:58 mirtazapine [MIRTAZAPINE] AdvReac Intermediate mood Verified 10/30/24 14:58 instability/anger/etc amlodipine AdvReac Mild edema Verified 10/30/24 14:58 Patient History Medical History Uncomplicated opioid dependence Chronic back pain Hypertension COPD (chronic obstructive pulmonary disease) Chronic diarrhea of unknown origin (06/18/15) Bilateral low back pain without sciatica (06/18/15) Chronic depression (06/18/15) Smoker unmotivated to quit (06/18/15) Mixed hyperlipidemia Gastroesophageal reflux disease with esophagitis History of adenomatous polyp of colon (04/15/11) Agustin's esophagus without dysplasia (~2009) Primary insomnia (04/15/11) Surgical History History of lobectomy of lung Family History Mother Congenital heart defect Social History marital status: number of children: 0 household members: none lives independently: Yes caregiver/support person: No housing: other (Mobile home) pets and animals: Yes education level: middle school (7th Grade) occupational status: other (Retired, permanent disability) current occupational exposures/hazards: No 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 HEAD: Atraumatic. Normocephalic. EYES: Pupils equal round and reactive. Extraocular motions intact. No scleral icterus. No injection or drainage. ENT: Nose without bleeding, purulent drainage. Throat without erythema, tonsillar hypertrophy or exudate. Airway patent. NECK: Trachea midline. Non tender CARDIOVASCULAR: Regular rate and rhythm without murmurs, gallops, or rubs. RESPIRATORY: Breath sounds equal bilaterally. Wheeze bilaterally, bibasilar crackles. Speaking just in full sentences. GASTROINTESTINAL: Abdomen soft, non-tender, nondistended. EXTREMITIES: Bilateral lower extremity edema, redness mqfkq-gmcrakl-ptqk-left foreleg. BACK: Nontender without deformity or crepitance. No flank tenderness. NEURO: AOx3. Motor functions grossly nonfocal SKIN: No rash or erythema of visible areas Initial Vital Signs Initial Vital Signs: Vital Signs Pulse Rate 102 H 11/27/24 08:29 Blood Pressure 141/95 H 11/27/24 08:29 Pulse Oximetry 93 11/27/24 08:29 Course Orders Ordered: Discontinued Medications Albuterol/Ipratropium (Albuterol/Ipratropium 3 Ml Ampul) 3 ml INH NOW ONE Stop: 11/27/24 08:38 Last Admin: 11/27/24 08:43 Dose: 3 ml Documented By: CAROLA Furosemide (Furosemide 40 Mg/4 Ml Vial) 40 mg IV NOW ONE Stop: 11/27/24 08:36 Last Admin: 11/27/24 08:54 Dose: 40 mg Documented By: LEON Furosemide (Furosemide 40 Mg/4 Ml Vial) 40 mg IV NOW ONE Stop: 11/27/24 11:51 Last Admin: 11/27/24 11:55 Dose: 40 mg Documented By: Tranexamic Acid 1,000 mg/ (Sodium Chloride) 100 mls @ 200 mls/hr IV INTRA-OP ONE Stop: 11/27/24 09:35 Ceftriaxone Sodium 1,000 mg/ (Sodium Chloride) 100 mls @ 200 mls/hr IV NOW ONE Stop: 11/27/24 10:16 Last Infusion: 11/27/24 11:00 Dose: Infused Documented By: Admin: 11/27/24 10:26 Dose: 200 mls/hr Documented By: Nicotine (Nicotine 21 Mg Patch) 21 mg TOP NOW ONE Stop: 11/27/24 09:54 Last Admin: 11/27/24 10:01 Dose: 21 mg Documented By: Nitroglycerin (Nitroglycerin Oint 1 Inch/Gm Oint...G.) 0.5 inch TOP NOW ONE Stop: 11/27/24 09:01 Last Admin: 11/27/24 09:02 Dose: 0.5 inch Documented By: LEON Vital Signs Vital signs: Vital Signs - 8 hr 11/27/24 08:29 11/27/24 08:29 11/27/24 08:30 Temperature Pulse Rate 102 H Respiratory Rate Blood Pressure 141/95 H 144/92 H Pulse Oximetry 93 Oxygen Delivery Method Oxygen Flow Rate Fraction of Inspired Oxygen 11/27/24 08:30 11/27/24 08:32 11/27/24 08:43 Temperature 98 F Pulse Rate 101 H 99 H 96 H Respiratory Rate 7 L 30 H Blood Pressure 144/92 H Pulse Oximetry 94 94 90 L Oxygen Delivery Method Room Air Room Air Room Air Oxygen Flow Rate 0 Fraction of Inspired Oxygen 21 11/27/24 09:00 11/27/24 09:00 11/27/24 09:02 Temperature Pulse Rate 91 H 91 H Respiratory Rate 17 Blood Pressure 129/74 129/74 Pulse Oximetry 89 L Oxygen Delivery Method Oxygen Flow Rate Fraction of Inspired Oxygen 11/27/24 09:02 11/27/24 09:02 11/27/24 09:04 Temperature Pulse Rate 92 H Respiratory Rate 16 Blood Pressure 133/77 130/76 Pulse Oximetry 89 L Oxygen Delivery Method Oxygen Flow Rate Fraction of Inspired Oxygen 11/27/24 09:04 11/27/24 09:09 11/27/24 09:09 Temperature Pulse Rate 91 H 94 H Respiratory Rate 18 32 H Blood Pressure 163/93 H Pulse Oximetry 91 88 L Oxygen Delivery Method Oxygen Flow Rate Fraction of Inspired Oxygen 11/27/24 09:13 11/27/24 09:13 11/27/24 09:16 Temperature Pulse Rate 92 H 95 H Respiratory Rate 34 H 18 Blood Pressure 147/77 H Pulse Oximetry 92 91 Oxygen Delivery Method Oxygen Flow Rate Fraction of Inspired Oxygen 11/27/24 09:16 11/27/24 09:20 11/27/24 09:20 Temperature Pulse Rate 104 H Respiratory Rate 40 H Blood Pressure 154/81 H 155/86 H Pulse Oximetry Oxygen Delivery Method Oxygen Flow Rate Fraction of Inspired Oxygen 11/27/24 09:24 11/27/24 09:24 11/27/24 09:28 Temperature Pulse Rate 93 H Respiratory Rate 38 H Blood Pressure 137/85 116/65 Pulse Oximetry Oxygen Delivery Method Oxygen Flow Rate Fraction of Inspired Oxygen 11/27/24 09:28 11/27/24 09:30 11/27/24 09:32 Temperature Pulse Rate 92 H 91 H Respiratory Rate 34 H 32 H Blood Pressure 144/80 H Pulse Oximetry Oxygen Delivery Method Oxygen Flow Rate Fraction of Inspired Oxygen 11/27/24 09:32 11/27/24 09:36 11/27/24 09:36 Temperature Pulse Rate 92 H 91 H Respiratory Rate 34 H 32 H Blood Pressure 138/77 Pulse Oximetry 91 90 L Oxygen Delivery Method Oxygen Flow Rate Fraction of Inspired Oxygen 11/27/24 09:40 11/27/24 09:40 11/27/24 09:44 Temperature Pulse Rate 103 H Respiratory Rate 39 H Blood Pressure 133/76 134/80 Pulse Oximetry 95 Oxygen Delivery Method Oxygen Flow Rate Fraction of Inspired Oxygen 11/27/24 09:44 11/27/24 09:48 11/27/24 09:48 Temperature Pulse Rate 92 H 86 Respiratory Rate 35 H 27 H Blood Pressure 141/82 H Pulse Oximetry 91 97 Oxygen Delivery Method Oxygen Flow Rate Fraction of Inspired Oxygen 11/27/24 09:53 11/27/24 09:53 11/27/24 09:57 Temperature Pulse Rate 89 Respiratory Rate 30 H Blood Pressure 124/73 191/85 H Pulse Oximetry 96 Oxygen Delivery Method Oxygen Flow Rate Fraction of Inspired Oxygen 11/27/24 09:57 11/27/24 10:00 11/27/24 10:04 Temperature Pulse Rate 95 H 105 H Respiratory Rate 40 H 46 H Blood Pressure 163/94 H Pulse Oximetry 88 L 96 Oxygen Delivery Method Oxygen Flow Rate Fraction of Inspired Oxygen 11/27/24 10:04 11/27/24 10:08 11/27/24 10:08 Temperature Pulse Rate 86 87 Respiratory Rate 25 H 32 H Blood Pressure 149/89 H Pulse Oximetry Oxygen Delivery Method Oxygen Flow Rate Fraction of Inspired Oxygen 11/27/24 10:12 11/27/24 10:12 11/27/24 10:16 Temperature Pulse Rate 93 H 86 Respiratory Rate 38 H 32 H Blood Pressure 136/83 Pulse Oximetry 94 Oxygen Delivery Method Oxygen Flow Rate Fraction of Inspired Oxygen 11/27/24 10:16 11/27/24 10:20 11/27/24 10:20 Temperature Pulse Rate 95 H Respiratory Rate 27 H Blood Pressure 138/82 161/81 H Pulse Oximetry 95 Oxygen Delivery Method Room Air Oxygen Flow Rate Fraction of Inspired Oxygen MDM - SOB/Dyspnea Lab Data Attestation: I reviewed the patient's lab results. Lab results narrative: White blood cell count 8500, hemoglobin 16.2, platelets adequate. Glucose 113. BUN 14 with creatinine 0.82 normal renal function. Serum CO2 35. Potassium 3.6, sodium 139, chloride 100. Slight ALT elevation 56, other LFTs normal. Troponin negative. BNP 2290 elevated. Lactate 1.6 normal. 11/27/24 08:30 11/27/24 08:30 Labs: Lab Results 11/27/24 11/27/24 11/27/24 Range/Units 08:30 09:25 10:30 WBC 8.5 (4.5-11.0) X10^3/uL RBC 4.75 (4.5-5.9) X10^6/uL Hgb 16.2 (13.5-17.5) g/dL Hct 49.4 (41-53) % MCV 103.9 H (80-100) fL MCH 34.1 H (26-34) PG MCHC 32.8 (30-36) % RDW 14.9 H (11.6-14.8) % Plt Count 169 (150-400) X10^3/uL Neut % (Auto) 72.2 (50-75) % Lymph % (Auto) 17.1 L (25-40) % Lamar % (Auto) 9.0 (3-14) % Eos % (Auto) 1.1 L (2-4) % Baso % (Auto) 0.6 (0-2) % Neut # (Auto) 6100 (1275-3893) /uL Lymph # (Auto) 1400 (6861-3864) /uL [place]ar # (Auto) 800 (0-900) /uL Eos # (Auto) 100 (0-450) /uL Baso # (Auto) 100 (0-100) /uL PT 11.9 (9.4-12.5) SECONDS INR 1.1 (0.9-1.3) Sodium 139 (137-145) mmol/L Potassium 3.6 (3.4-5.1) mmol/L Chloride 100 (98-107) mmol/L Carbon Dioxide 35 H (22-32) mmol/L BUN 14 (9-20) mg/dL Creatinine 0.82 (0.66-1.25) mg/dL Estimated GFR > 60 (>60) mL/min BUN/Creatinine Ratio 17.1 (6-22) Glucose 113 H (80-110) mg/dL Lactate 1.6 (0.7-2.1) mmol/L Calcium 8.9 (8.4-10.2) mg/dL Total Bilirubin 0.8 (0.2-1.3) mg/dL AST 48 (17-59) IU/L ALT 56 H (<50) IU/L Alkaline Phosphatase 88 (38-126) U/L Troponin I 0.022 0.020 (0.01-0.034) ng/mL NT-Pro-B Natriuret Pep 2290 H (<125) pg/mL Total Protein 7.0 (6.3-8.2) g/dL Albumin 4.1 (3.5-5.0) g/dL Globulin 2.9 (1.7-4.1) g/dL Albumin/Globulin Ratio 1.4 (1.0-2.8) SARS-CoV-2 (PCR) Negative (Negative) Influenza A (RT-PCR) Flu a negative (NEGATIVE) Influenza B (RT-PCR) Flu b negative (NEGATIVE) RSV (PCR) Negative (Negative) ECG Data Attestation: I personally reviewed and interpreted this ECG as follows: Interpretation: 0832, Normal sinus rhythm with rate of 98, some movement artifact septal leads. No obvious ST segment elevation. MI 160, QRS 98, QTC 451. 1056, normal sinus rhythm with rate of 92, no obvious ST segment elevation or depression changes, again has some artifact movement related. MI 152, QRS 100, QTC 450. MDM Narrative Medical decision making narrative: 63-year-old male missed his Lasix doses over the weekend citing a lack of transportation to go get his refilled medications, also redness whimp-nwqedbh-gxre-left leg not on antibiotics, afebrile, sirs screen negative, some shortness of breath initial, IV Lasix given, diuresis and improvement. Offered admission, patient would rather go home. Trial of ambulation. 1145, patient had desaturation to 84% on room air with ambulation trial, we will stay for further IV Lasix 40, he still does not want to be admitted. Further IV Lasix 40 mg given. He would like to go home, that he will not exert himself, will take extra doses of Lasix as his primary care provider Dr. Zhou had suggested. Suggested close follow up this week. Patient declines admission. Return precautions discussed. Regarding his cellulitis, IV ceftriaxone were given, prescription for cephalexin sent to his pharmacy. 1205, case discussed with PCP Winnie, aware of patient decision to be discharged home, can try to facilitate close follow up, apparently patient has barriers to obtaining his medications. Discharged home per patient request, prescription for cephalexin antibiotic sent to his pharmacy. He will feel his oral Lasix prescription to restart. Advised to call the office of his PCP for close follow up appointment. Discharged home per patient request. Discharge Plan Departure Patient Disposition: Home Clinical Impression: Congestive heart failure, Cellulitis of right leg Activity Restrictions/Additional Instructions: Ms Bautista, Recent missed doses of oral Lasix, shortness of breath. Redness to right and left leg, possible cellulitis. Not on antibiotics. We started IV antibiotics ceftriaxone, sent prescription for cephalexin antibiotic to take by mouth to hopefully reverse the infection in your legs. IV Lasix given, you were able to urinate, however he had some shortness of breath and desaturation with walking on flat surface, did not want to be admitted, an additional dose of IV Lasix was given. You requested discharge. Advised close follow up with your regular provider. You have extra doses of Lasix to take as instructed for the next couple of days. Call the office of your regular doctor later today for close follow up visit. Return to this/nearest emergency department for any change worsening symptoms or any concerns prior. Thank you for allowing our team to evaluate you today. Prescriptions: New cephalexin 500 mg capsule 500 mg PO QID 7 Days Qty: 28 0RF No Action (DME) nebulizer and compressor Device See Rx Instructions .Route Qty: 1 0RF Rx Instructions: As directed albuterol sulfate [Ventolin HFA] 90 mcg/actuation HFA aerosol inhaler See Rx Instructions .ROUTE .COMPLEX Qty: 18 6RF Dose Instruction: inhale 1 to 2 puffs by mouth every 4 hours if needed Rx Instructions: inhale 1 to 2 puffs by mouth every 4 hours if needed albuterol sulfate 2.5 mg /3 mL (0.083 %) solution for nebulization 2.5 mg inhalation QID PRN (Reason: shortness of breath or wheezing) Qty: 180 3RF pantoprazole 40 mg tablet,delayed release (DR/EC) 40 mg PO DAILY Qty: 30 11RF lisinopril 20 mg tablet 20 mg PO DAILY Qty: 90 3RF ipratropium bromide 0.02 % solution 2.5 ml inhalation QID Qty: 150 7RF fluticasone propionate 50 mcg/actuation spray,suspension 2 spray Intranasal HS Qty: 16 3RF hydrocodone-acetaminophen 10-325 mg tablet 1 - 2 tab PO Q4H MDD 8 tabs PRN (Reason: pain) Qty: 220 0RF hydrocodone-acetaminophen 10-325 mg tablet 1 - 2 tab PO Q4HP PRN (Reason: back pain) Qty: 220 0RF hydrocodone-acetaminophen 10-325 mg tablet 1 - 2 tab PO Q4H MDD 8 tabs PRN (Reason: pain) Qty: 220 0RF prednisone 20 mg tablet 10 mg PO DAILY Qty: 90 0RF torsemide 20 mg tablet 60 mg PO DAILY Qty: 270 3RF (DME) Disabled Parking See Rx Instructions .ROUTE .MEDSUPPLY Qty: 1 0RF Rx Instructions: Patient qualifies for disabled parking as per the attached form. budesonide 0.5 mg/2 mL suspension for nebulization 0.5 mg inhalation BID Qty: 60 6RF Referrals: Robert Zhou MD [Primary Care Provider] - Stand Alone Forms: Patient Portal/API/Survey
--- NOTE | 2024-11-27 09:52 | PC.NURSE ---
Sats decreasing to 88-89% on RA. Placed on 1 L per NC. Sats improved to 94%. Dr Flores notified.
[2024-11-27] MEDS: NICOTINE 21 MG PATCH TOP (10:01)
[2024-11-27 10:17] LABS: Influenza A - CEPHEID Flu A NEGATIVE (NEGATIVE); Influenza B - CEPHEID Flu B NEGATIVE (NEGATIVE); Respiratory Syncytial Virus Negative (Negative)
[2024-11-27 10:18] LABS: COVID-19 CEPHEID 4-PLEX PCR Negative (Negative)
[2024-11-27] MEDS: cefTRIAXone 1,000 MG in SODIUM CHLORIDE 0.9% 100 ML 200 MG IV (10:26)
--- NOTE | 2024-11-27 10:42 | EKG_ITS ---
[address] [address] Test Date: 2024-11-27 Pat Name: Jace Bautista Department: [facility] Room: Gender: Male Gi Physician: DUSTIN : 1960 Requested By: Order Number: [id number] Reading MD: Robert Zhou MD Measurements Intervals [place] Rate: 92 P: 66 CT: 152 QRS: 59 QRSD: 100 T: 45 QT: 364 QTc: 450 Interpretive Statements Normal sinus rhythm Electronically Signed On 11-27-2024 11:36:48 PDT by Robert Zhou MD
--- NOTE | 2024-11-27 11:51 | PC.NURSE ---
Ambulation trial done. Pt desats to 84% on RA, RR increased to 45/ min. MD in room with pt, Pt states that he doesn't want to stay in hospital. Wantso to go hojme.
== END 2024-11-27 12:38 | disposition home or self-care (01) ==
PROVIDERS: Emergency Provider Emergency Medicine; PCP Internal Medicine
DX: I50.9 Heart failure, unspecified (principal); L03.115 Cellulitis of right lower limb; Z79.01 Long term (current) use of anticoagulants
CPT/HCPCS: 0241U; 36415; 71045; 80053; 83605; 83880; 84484; 85025; 85610; 93005; 93010; 94640; 96365; 96375; 96376; 99284; J0696; J1940

== ENCOUNTER 2024-12-07 06:42 | Inpatient (IN) | payer MEDICARE, MEDICAID, SELFPAY ==
[2024-12-07] VITALS (23 sets, daily range): BP systolic 105–138; BP diastolic 58–90; PULSE 88–98; RESP 18–42; TEMP 36.2–37.3; O2SAT 3–99; BMI 31.8; BMI 21.8
--- NOTE | 2024-12-07 06:54 | DI.RAD.S_ITS ---
PROCEDURE: XR CHEST 1V INDICATIONS: short of breath TECHNIQUE: One view of the chest was acquired. COMPARISON: [facility], CR, XR CHEST 1V, 11/27/2024, 8:33. FINDINGS: Surgical changes and devices: None. Lungs and pleura: Mild pulmonary vascular congestion is seen. Blunting of right costophrenic angle suggestive of small right pleural effusion. No pneumothorax. No definite focal infiltrate. Mediastinum: Mediastinal contours appear normal. Heart size is enlarged Bones and chest wall: No suspicious bony lesions. Overlying soft tissues appear unremarkable. IMPRESSION: Mild congestive changes and small right pleural effusion. No definite focal infiltrate. No pneumothorax. Dictated by: Parmjit Enriquez M.D. on 12/07/2024 at 8:12 Approved by: Parmjit Enriquez M.D. on 12/07/2024 at 8:12
[2024-12-07] MEDS: FUROSEMIDE 40 MG/4 ML VIAL IV ×2 (06:58→16:09)
[2024-12-07 07:07] LABS: Add Manual Diff / Slide Review NO; Basophils Absolute Auto 0 /uL (0-100); Basophils Percent Auto 0.4 % (0-2); Eosinophils Absolute Auto 200 /uL (0-450); Eosinophils Percent Auto 1.9 % (2-4); Hematocrit 51.7 % (41-53); Hemoglobin 17.3 g/dL (13.5-17.5); Lymphocytes Absolute Auto 700 /uL (1100-4500); Lymphocytes Percent Auto 8.8 % (25-40); Mean Corpuscular HGB Conc 33.5 % (30-36); Mean Corpuscular Hemoglobin 34.6 PG (26-34); Mean Corpuscular Volume 103.1 fL (80-100); Monocytes Absolute Auto 1200 /uL (0-900); Monocytes Percent Auto 14.6 % (3-14); Neutrophils Absolute Auto 6100 /uL (1500-7000); Neutrophils Percent Auto 74.3 % (50-75); Platelet Count 171 X10^3/uL (150-400); Red Blood Cell Count 5.01 X10^6/uL (4.5-5.9); Red Cell Distribution Width 14.2 % (11.6-14.8); White Blood Cell Count 8.3 X10^3/uL (4.5-11.0)
[2024-12-07 07:10] LABS: INR 1.1 (0.9-1.3); Prothrombin Time 12.1 SECONDS (9.4-12.5)
[2024-12-07 07:13] LABS: PTT Partial Thromboplastin Tim 31 SECONDS (25.1-36.5)
--- NOTE | 2024-12-07 07:16 | EKG_ITS ---
[address] [address] Test Date: 2024-12-07 Pat Name: Jace Bautista Department: [facility] Room: Gender: Male Wilderness Guide: BRANDIE : 1960 Requested By: Order Number: [id number] Reading MD: Robert Zhou MD Measurements Intervals [place] Rate: 87 P: 55 MO: 146 QRS: 97 QRSD: 104 T: 33 QT: 382 QTc: 459 Interpretive Statements Normal sinus rhythm Rightward axis Incomplete right bundle branch block (new) Anterior infarct , age undetermined Electronically Signed On 12-07-2024 7:42:14 PDT by Robert Zhou MD
[2024-12-07 07:23] LABS: Lactate (Lactic Acid) 1.3 mmol/L (0.7-2.1)
[2024-12-07 07:24] LABS: Alanine Aminotransferase 36 IU/L (<50); Albumin 4.3 g/dL (3.5-5.0); Albumin Globulin Ratio 1.3 (1.0-2.8); Alkaline Phosphatase 79 U/L (38-126); Aspartate Aminotransferase 41 IU/L (17-59); Bilirubin Total 0.7 mg/dL (0.2-1.3); Blood Urea Nitrogen 42 mg/dL (9-20); Calcium 8.9 mg/dL (8.4-10.2); Chloride 85 mmol/L (98-107); Creatine Kinase 83 U/L (55-170); Estimated Glomerular Filt Rate 45 mL/min (>60); Globulin 3.3 g/dL (1.7-4.1); Glucose 126 mg/dL (80-110); HEMOLYSIS 16 (0-50); Potassium 3.6 mmol/L (3.4-5.1); Sodium 134 mmol/L (137-145); Total Protein 7.6 g/dL (6.3-8.2)
[2024-12-07 07:30] LABS: Carbon Dioxide 35 mmol/L (22-32)
--- NOTE | 2024-12-07 07:32 | ED_ITS ---
HPI - SOB/Dyspnea General Chief Complaint: Shortness of Breath/Dyspnea Stated Complaint: increased SOB Time Seen by Provider: 12/07/24 06:47 Source: EMS Mode of arrival: EMS Limitations: no limitations History of Present Illness HPI Narrative: This 64-year-old man with advanced COPD and continued smoking presenting by ambulance with shortness of breath. Patient says that he has been getting progressively short of breath for months. I reviewed a primary care note from September 24 of this year at that time he was reporting increasing shortness of breath. It appears that he is on chronic steroids patient says that he has not has a prednisone in a week or more. This apparently is related to his pharmacy being out of stock. He says he had a fever last night. He says he had chest pain that has been unchanged for greater than 10 years that started after ribs were broken when he had surgery to remove a lung abscess. He is not on home oxygen. He is concerned about cellulitis in his legs, he is not having leg pain has some leg swelling which is chronic and unchanged. Says that he has been taking his diuretics. Related Data Previous Rx's Medication Instructions Recorded nebulizer and compressor #1 ea 01/06/22 albuterol sulfate 90 mcg/actuation See Rx Instructions .Route 03/31/23 aerosol inhaler (Ventolin HFA) .COMPLEX #18 grams albuterol sulfate 2.5 mg/3 mL 2.5 mg (3 mL) inhalation QID PRN 04/22/23 (0.083 %) solution for nebulization shortness of breath or wheezing #180 mL ipratropium bromide 0.02 % 2.5 ml inhalation QID #150 mL 06/07/23 solution for inhalation pantoprazole 40 mg tablet,delayed 40 mg PO DAILY #30 tabs 10/29/23 release budesonide 0.5 mg/2 mL suspension 0.5 mg (2 mL) inhalation BID #60 mL 06/09/24 for nebulization fluticasone propionate 50 2 spray intranasal HS #16 grams 08/07/24 mcg/actuation nasal spray,suspension lisinopril 20 mg tablet 20 mg PO DAILY #90 tabs 10/04/24 Disabled Parking #1 ea 10/06/24 torsemide 20 mg tablet 60 mg (3 x 20 mg) PO DAILY #270 10/06/24 tabs hydrocodone 10 mg-acetaminophen 1 - 2 tab PO Q4H PRN pain #220 tabs 10/30/24 325 mg tablet hydrocodone 10 mg-acetaminophen 1 - 2 tab PO Q4H PRN pain #220 tabs 10/30/24 325 mg tablet hydrocodone 10 mg-acetaminophen 1 - 2 tab PO Q4HP PRN back pain 10/30/24 325 mg tablet #220 tabs prednisone 20 mg tablet 10 mg (1/2 x 20 mg) PO DAILY #90 10/30/24 tabs Allergies Allergy/AdvReac Type Severity Reaction Status Date / Time bupropion [BUPROPION] AdvReac Intermediate dry mouth Verified 10/30/24 14:58 mirtazapine [MIRTAZAPINE] AdvReac Intermediate mood Verified 10/30/24 14:58 instability/anger/etc amlodipine AdvReac Mild edema Verified 10/30/24 14:58 Patient History Medical History Uncomplicated opioid dependence Chronic back pain Hypertension COPD (chronic obstructive pulmonary disease) Chronic diarrhea of unknown origin (06/18/15) Bilateral low back pain without sciatica (06/18/15) Chronic depression (06/18/15) Smoker unmotivated to quit (06/18/15) Mixed hyperlipidemia Gastroesophageal reflux disease with esophagitis History of adenomatous polyp of colon (04/15/11) Agustin's esophagus without dysplasia (~2009) Primary insomnia (04/15/11) Surgical History History of lobectomy of lung Family History Mother Congenital heart defect Social History marital status: number of children: 0 household members: none lives independently: Yes caregiver/support person: No housing: other (Mobile home) pets and animals: Yes education level: middle school (7th Grade) occupational status: other (Retired, permanent disability) current occupational exposures/hazards: No Previous occupational history: Various kamini/anglican: Non-faith leisure activities: other (Dog walks) Smoking Status: Current every day smoker Tobacco: How many years used: 40 Smokeless tobacco user: other (Cigarettes) quit status: has quit before alcohol intake: current (Occasionally) substance use type: does not use Smoking Status: Current every day smoker Exam Initial Vital Signs Initial Vital Signs: Vital Signs Temperature 99.1 F 12/07/24 06:43 Pulse Rate 98 H 12/07/24 06:43 Respiratory Rate 18 12/07/24 06:43 Blood Pressure 127/86 12/07/24 06:43 Pulse Oximetry 74 L 12/07/24 06:43 Oxygen Delivery Method Room Air 12/07/24 06:43 Const General: cooperative and No acute distress HENMT Head: normocephalic and atraumatic Face and sinus: face symmetric Mouth: moist mucous membranes Neck Neck: No JVD Resp Other: He is speaking in full sentences not at respiratory distress he has wheezing throughout with decreased air movement. Cardio Rate: regular rate Rhythm: regular rhythm Heart Sounds: no murmurs GI Inspection: normal to inspection Palpation: soft Neuro General: patient alert, patient oriented x3 and moves all extremities Speech: speech normal Extrem Other: Trace pedal edema, legs are warm there is a bit of erythema bilaterally is not excessively warm to suggest infections not appear to be cellulitic Course Orders Ordered: ED Orders 12/07/24 06:50 Complete Blood Count AUTO DIFF Stat Comprehensive Metabolic Panel Stat Lactate (Lactic Acid) Stat NT-proBNP (BNP-Adult 18+) Stat PTT Partial Thromboplastin Joe Stat Procalcitonin Stat Prothrombin Time INR Stat T4 Total Thyroxine Stat TSH [Thyroid Stimulating Hormone] Stat Troponin & CK Cardiac Panel Stat 12/07/24 06:54 XR chest 1V Stat EKG-12 Lead Stat 12/07/24 07:04 Blood Culture Stat 12/07/24 07:17 Venous Blood Gas STAT 12/07/24 07:23 Urinalysis and Microscopic Stat 12/07/24 07:31 Venous Blood Gas Routine 12/07/24 09:00 Troponin I Stat Discontinued Medications Albuterol (Albuterol 2.5 Mg/3 Ml Neb (Adult)) 2.5 mg INH NOW ONE Stop: 12/07/24 07:33 Last Admin: 12/07/24 08:00 Dose: 2.5 mg Documented By: RAUDEL Furosemide (Furosemide 40 Mg/4 Ml Vial) 40 mg IV NOW ONE Stop: 12/07/24 06:56 Last Admin: 12/07/24 06:58 Dose: 40 mg Documented By: ALEXANDREA Prednisone (Prednisone 20 Mg Tablet) 60 mg PO NOW ONE Stop: 12/07/24 07:33 Last Admin: 12/07/24 07:53 Dose: 60 mg Documented By: COURTNEY Reevaluation(s) Reevaluation #1: At 9:05 a.m., patient reports he is feeling better but still short of breath. Presently coughing. Discussed the plan for admission he is in agreement, patient would want to be intubated if he deteriorated and would want resuscitation if he had a cardiac arrest Consultations Consultation #1: At 9:15 a.m. case is discussed with patient's primary care provider Dr. Browne who accepts admission. I will order an echocardiogram. Vital Signs Vital signs: Vital Signs - 8 hr 12/07/24 06:43 12/07/24 06:48 12/07/24 07:00 Temperature 99.1 F Pulse Rate 98 H 91 H Respiratory Rate 18 34 H Blood Pressure 127/86 Pulse Oximetry 74 L 91 96 Oxygen Delivery Method Room Air Nasal Cannula Nasal Cannula Oxygen Flow Rate 2 2 Fraction of Inspired Oxygen 12/07/24 07:24 12/07/24 07:24 12/07/24 07:30 Temperature Pulse Rate 88 Respiratory Rate 24 Blood Pressure 116/77 105/58 L Pulse Oximetry 95 Oxygen Delivery Method Nasal Cannula Oxygen Flow Rate 2 Fraction of Inspired Oxygen 12/07/24 07:30 12/07/24 08:00 12/07/24 08:00 Temperature Pulse Rate 88 92 H 91 H Respiratory Rate 28 H 20 24 Blood Pressure Pulse Oximetry 94 99 96 Oxygen Delivery Method Nasal Cannula Nasal Cannula Nasal Cannula Oxygen Flow Rate 2 2 2 Fraction of Inspired Oxygen 21 12/07/24 08:01 12/07/24 08:01 12/07/24 08:30 Temperature Pulse Rate 93 H Respiratory Rate 26 H Blood Pressure 121/70 114/79 Pulse Oximetry 96 Oxygen Delivery Method Nasal Cannula Oxygen Flow Rate 2 Fraction of Inspired Oxygen 12/07/24 08:30 Temperature Pulse Rate 94 H Respiratory Rate 31 H Blood Pressure Pulse Oximetry 92 Oxygen Delivery Method Nasal Cannula Oxygen Flow Rate 2 Fraction of Inspired Oxygen MDM - SOB/Dyspnea Lab Data Lab results narrative: CBC is remarkable for elevated hemoglobin. This appears to be chronic. Has not elevated creatinine at 1.68, this is doubled over 10 days indicate any acute kidney injury. Troponin is abnormal at 0.40. ProBNP elevated and trending upward over 10 days. I think his elevated troponin is likely demand related but will trend it. Venous blood gas remarkable for a CO2 over 80, pH is 7.37 so this is largely compensated. 12/07/24 06:50 12/07/24 06:50 Labs: Lab Results 12/07/24 12/07/24 12/07/24 Range/Units 06:50 07:23 07:31 WBC 8.3 (4.5-11.0) X10^3/uL RBC 5.01 (4.5-5.9) X10^6/uL Hgb 17.3 (13.5-17.5) g/dL Hct 51.7 (41-53) % MCV 103.1 H (80-100) fL MCH 34.6 H (26-34) PG MCHC 33.5 (30-36) % RDW 14.2 (11.6-14.8) % Plt Count 171 (150-400) X10^3/uL Neut % (Auto) 74.3 (50-75) % Lymph % (Auto) 8.8 L (25-40) % [place] % (Auto) 14.6 H (3-14) % Eos % (Auto) 1.9 L (2-4) % Baso % (Auto) 0.4 (0-2) % Neut # (Auto) 6100 (3736-0161) /uL Lymph # (Auto) 700 L (5549-9915) /uL [place] # (Auto) 1200 H (0-900) /uL Eos # (Auto) 200 (0-450) /uL Baso # (Auto) 0 (0-100) /uL PT 12.1 (9.4-12.5) SECONDS INR 1.1 (0.9-1.3) APTT 31 (25.1-36.5) SECONDS VBG pH 7.37 (7.33-7.43) VBG pCO2 83.2 H (45-50) mmHg VBG pO2 25 L (35-45) mmHg VBG HCO3 48 H (24-28) mmol/L VBG Total CO2 47 H (24-29) mmol/L VBG O2 Saturation 39 L (70-75) % VBG Base Excess 15.5 H (0-4) mmol/L FiO2 % 28.0 % % Sodium 134 L (137-145) mmol/L Potassium 3.6 (3.4-5.1) mmol/L Chloride 85 L (98-107) mmol/L Carbon Dioxide 35 H (22-32) mmol/L BUN 42 H (9-20) mg/dL Creatinine 1.68 H (0.66-1.25) mg/dL Estimated GFR 45 L (>60) mL/min BUN/Creatinine Ratio 25.0 H (6-22) Glucose 126 H (80-110) mg/dL Lactate 1.3 (0.7-2.1) mmol/L Calcium 8.9 (8.4-10.2) mg/dL Total Bilirubin 0.7 (0.2-1.3) mg/dL AST 41 (17-59) IU/L ALT 36 (<50) IU/L Alkaline Phosphatase 79 (38-126) U/L Total Creatine Kinase 83 (55-170) U/L Troponin I 0.040 H (0.01-0.034) ng/mL NT-Pro-B Natriuret Pep 6590 H (<125) pg/mL Total Protein 7.6 (6.3-8.2) g/dL Albumin 4.3 (3.5-5.0) g/dL Globulin 3.3 (1.7-4.1) g/dL Albumin/Globulin Ratio 1.3 (1.0-2.8) Procalcitonin 0.127 (<0.5) ng/mL TSH 4.93 H (0.47-4.68) uIU/mL Thyroxine (T4) 4.80 L (5.5-11.0) ug/dL Urine Color Yellow Urine Appearance Clear Urine pH 5.5 (4.5-8.0) Ur Specific [place] 1.020 (1.000-1.035) Urine Protein Negative (Negative) Urine Glucose (UA) Negative (Negative) g/dL Urine Ketones Negative (NEGATIVE) Urine Occult Blood Negative (Negative) Urine Nitrate Negative (Negative) Urine Bilirubin Negative (NEGATIVE) Urine Urobilinogen 0.2 (0.2) E.U./dL Ur Leukocyte Esterase Negative (NEGATIVE) Urine RBC 0-1/hpf (0-5/HPF) Urine WBC 0-1/hpf (0-5/HPF) Ur Squamous Epith Cells None seen (0-5/HPF) Urine Bacteria None seen (None) Hyaline Casts 1-5/lpf (None) Ur Culture Indicated? Cult not indicated Vol Urine Centrifuged 10ml (spun) Imaging Data Chest x-ray: My Impression: Independent review of chest x-ray, mild cardiomegaly possible mild CHF no infiltrate Radiologist's Impression: [address] [address] XRay Report Signed Patient: Jace Bautista MR#: [id number] : 1960 Acct:[id number] Age/Sex: 64 / M Date of Service: 12/07/24 Loc: ED Accession Number: [id number] Procedure: XR chest 1V Ordering Provider: Magali Farrell D.O. PROCEDURE: XR CHEST 1V INDICATIONS: short of breath TECHNIQUE: One view of the chest was acquired. COMPARISON: [facility], , XR CHEST 1V, 11/27/2024, 8:33. FINDINGS: Surgical changes and devices: None. Lungs and pleura: Mild pulmonary vascular congestion is seen. Blunting of right costophrenic angle suggestive of small right pleural effusion. No pneumothorax. No definite focal infiltrate. Mediastinum: Mediastinal contours appear normal. Heart size is enlarged Bones and chest wall: No suspicious bony lesions. Overlying soft tissues appear unremarkable. IMPRESSION: Mild congestive changes and small right pleural effusion. No definite focal infiltrate. No pneumothorax. Dictated by: Parmjit Enriquez M.D. on 12/07/2024 at 8:12 Approved by: Parmjit Enriquez M.D. on 12/07/2024 at 8:12 ECG Data Interpretation: ECG shows sinus rhythm at [address] segment changes, no significant change from September 04, 2024 [facility] Narrative Medical decision making narrative: 64-year-old man with COPD who continues to smoke presenting with acute on chronic hypoxic and hypercapnic respiratory failure, dyspnea elevated proBNP and elevated troponin. He is describing chest pain that is unchanged for greater than 10 years and started after a surgery, he does not have ischemic EKG changes today I do not think that this is an ischemic cardiac event. His pro BNP is trending upward, it is also worth noting however that he has an acute kidney injury today as well. We have been cautious with diuretics here. TSH is noted to be elevated this will be addressed by the admitting team. He has received steroids and nebulized bronchodilators as well as albuterol here and he is admitted. Discharge Plan Departure Patient Disposition: Admitted As Inpatient Clinical Impression: Acute kidney injury, COPD exacerbation, Elevated troponin I level Dyspnea Qualifiers: Dyspnea type: shortness of breath Qualified Code(s): R06.02 - Shortness of breath CHF (congestive heart failure) Qualifiers: Heart failure type: unspecified Heart failure chronicity: acute on chronic Q ualified Code(s): I50.9 - Heart failure, unspecified Respiratory failure Qualifiers: Chronicity: acute on chronic Respiratory failure complication: hypoxia and hypercapnia Qualified Code(s): J96.21 - Acute and chronic respiratory failure with hypoxia
[2024-12-07 07:35] LABS: Base Excess VBG 15.5 mmol/L (0-4); HCO3 VBG 48 mmol/L (24-28); Oxygen Saturation VBG 39 % (70-75); PCO2 VBG 83.2 mmHg (45-50); PO2 VBG 25 mmHg (35-45); Total CO2 VBG 47 mmol/L (24-29); pH VBG 7.37 (7.33-7.43)
[2024-12-07 07:36] LABS: NT-proBNP (BNP-Adult 18+) 6590 pg/mL (<125)
[2024-12-07 07:40] LABS: Procalcitonin 0.127 ng/mL (<0.5)
[2024-12-07 07:42] LABS: Appearance Urine UA CLEAR; Bilirubin Urine UA NEGATIVE (NEGATIVE); Color Urine UA YELLOW; Glucose Urine UA NEGATIVE (Negative); Ketones Urine UA NEGATIVE (NEGATIVE); Leukocyte Esterase Urine UA NEGATIVE (NEGATIVE); Nitrite Urine UA NEGATIVE (Negative); Occult Blood Urine UA NEGATIVE (Negative); Protein Urine UA NEGATIVE (Negative); Urobilinogen Urine UA 0.2 E.U./dL (0.2); pH Urine UA 5.5 (4.5-8.0)
[2024-12-07] MEDS: predniSONE 20 MG TABLET 60 MG PO (07:53)
[2024-12-07 07:59] LABS: RBC Urine 0-1/HPF (0-5/HPF); Urine Volume 10mL (spun); WBC Urine 0-1/HPF (0-5/HPF)
[2024-12-07 08:00] LABS: Bacteria Urine None Seen; Culture Indicated Urine Cult Not Indicated; Hyaline Casts Urine 1-5/LPF; Squamous Epithelial Cell Urine None Seen (0-5/HPF)
[2024-12-07] MEDS: ALBUTEROL 2.5 MG/3 ML NEB (ADULT) INH (08:00)
[2024-12-07 08:05] LABS: Thyroid Stimulating Hormone 4.93 uIU/mL (0.47-4.68)
--- NOTE | 2024-12-07 09:14 | DI.ECHO.S_ITS ---
[facility]---------+ [facility] : : [address] : : [place] : : [id number] : : Phone: [phone] Echocardiogram Report + + :Name: JUDY DOZIER Study Date: 12/07/2024 Height: 73.5 in: :[facility] ReadingLocation: Weight: 245 lb : : Gender: Male BSA: 2.4 m2 : :: 1960 Age: 64 yrs BP: 127/77 mmHg: :Reason For Study: ASSESS LV FUNCTION/ CHF : :Ordering Physician: MARY KAY : :VERENICE Performed By: Wendy Alex : :Referring: VERENICE MUÑIZ : + + Interpretation Summary The left ventricular cavity is small. The ejection fraction is estimated to be 65-70%. Diastolic parameters suggest probable normal left ventricular diastolic function and normal filling pressures. The right ventricle is moderate to severely dilated. Right ventricular systolic function is moderately reduced. The right atrium is mildly dilated. No significant valvular abnormalities. Pulmonary artery pressures cannot be estimated because of the lack of a measurable TR jet velocity but the IVC suggests a CVP of around 15 mmHg. Compared to the prior study 12/27/2023, the right ventricle is now dilated with reduced function. Procedure: A two-dimensional transthoracic echocardiogram with color flow and Doppler was performed. The study quality was technically difficult. Comparison is made with the echocardiogram of 12/27/2023. A contrast injection of Definity was performed to improve assessment of LV function. The patient was in sinus rhythm with heart rates between 83-91 bpm during the exam. Left Ventricle: The left ventricular cavity is small. There is normal left ventricular wall thickness. The ejection fraction is estimated to be 65-70%. Diastolic parameters suggest probable normal left ventricular diastolic function and normal filling pressures. Right Ventricle: The right ventricle is moderate to severely dilated. Right ventricular systolic function is moderately reduced. Atria: The left atrial size is normal. The right atrium is mildly dilated. The interatrial septum bows toward left atrium consistent with elevated right atrial pressure. Mitral Valve: The mitral valve leaflets appear to open well. There is no mitral regurgitation noted. Aortic Valve: There is no aortic valve stenosis. No aortic regurgitation is present. Tricuspid Valve: The tricuspid valve leaflets are thin and pliable. No tricuspid regurgitation. Pulmonary artery pressures cannot be estimated because of the lack of a measurable TR jet velocity but the IVC suggests a CVP of around 15 mmHg. Pulmonic Valve: The pulmonic valve is not well visualized. Great Vessels: The aortic root is normal size. The IVC is dilated (diameter is greater than 2.1 cm) and it collapses less than 50% with a sniff. This suggests a high right atrial pressure of 15 mm Hg. Pericardium/ Pleura There is no pericardial effusion. There is no pleural effusion. MMode/2D Measurements & Calculations LVIDd: 5.1 cm LVOT diam: 2.2 cm LVIDs: 3.4 cm Ao root diam: 3.8 cm FS: 32.6 % IVSd: 0.88 cm LVPWd: 0.73 cm LV holliday. diameter/BSA (cm/m^2): 2.2 LV sys. diameter/BSA (cm/m^2): 1.5 LA A2 area: 20.8 cm2 RA long axis: 5.7 cm LA A4 area: 19.2 cm2 RA area: 25.6 cm2 LA length (vol): 6.3 cm RA vol: 97.4 ml LA vol: 54.1 ml RA : 41.3 ml/m2 LA vol index: 22.9 ml/m2 IVC diam: 3.0 cm RVD1 (basal): 5.1 cm RVD2 (mid): 4.4 cm TAPSE: 2.0 cm Doppler Measurements & Calculations Ao V2 max: 132.3 cm/sec LVOT Max Michael: 119.8 cm/sec Ao V2 mean: 93.7 cm/sec LV V1 max P.7 mmHg Ao max P.0 mmHg LV V1 VTI: 20.1 cm Ao mean P.9 mmHg CARLOS ALBERTO(I,D): 3.9 cm2 Ao V2 VTI: 20.0 cm CARLOS ALBERTO(V,D): 3.5 cm2 sev ratio: 1.0 CARLOS ALBERTO indexed to BSA (cm^2/m^2): 1.6 MV E max michael: 57.1 cm/sec SV(LVOT): 77.6 ml MV A max michael: 87.0 cm/sec MV E/A: 0.66 Med Peak E' Michael: 6.6 cm/sec E/E' med: 8.7 Lat Peak E' Michael: 9.9 cm/sec E/E' lat: 5.8 E/e' average: 7.3 MV dec time: 0.26 sec Reading Physician:01:07 PM
--- NOTE | 2024-12-07 09:20 | P.HP_ITS ---
History of Present Illness History of Present Illness Date Patient Seen: 12/07/24 Time Patient Seen: 09:20 Chief complaint: increased SOB Narrative: 64-year-old male, well known to me, continuous active cigarette smoker with severe COPD who has been failing at home. He has been advised to seek hospital care multiple times in fact my staff called 911 and he was DM asked to evaluate him almost a week ago on the 01 of December. Apparently he has been having increasing shortness a breath at home, EMS this morning found him with an oxygen saturation on room air of 70% or so. He has been having increased swelling of his lower extremities with increased redness. He was seen here in our emergency department on Wednesday the 27 of November thought to have a mild cellulitis and some mild lower extremity edema. Patient declined to be admitted for hospitalization at that time Patient has a horrible social situation at home. He was transportation he was quite limited at times he has been able to get out to get his medications including antibiotics prescribed for him during his last ER visit here at [facility] he was apparently out of prednisone which he takes chronically for his COPD because he either can not get to the pharmacy or as he puts it they do not have it (which seems unlikely). In any event he was transported to [facility] Emergency Department, he was found to be modestly hypoxic. He was evidence of an elevated BUN and maybe some volume overload on chest x-ray. He was an acute kidney injury with his creatinine double to 1.6. Electrolytes and CBC essentially unremarkable. Venous blood gas suggests chronic hypercapnia, not surprising given his severe COPD. His legs are felt to be minimally edematous for him and without evidence of active infection Patient now agrees for inpatient hospitalization. While he admits his breathing he was not good he was convinced that the irritation itching redness and swelling in his lower extremities that is causing his breathing to be bad. He thinks he was biggest problem has to do with his lower extremities. Unclear whether not he ever got the antibiotic therapy that was prescribed for him after his November 27 ER visit. [facility] Medical History Uncomplicated opioid dependence Chronic back pain Hypertension COPD (chronic obstructive pulmonary disease) Chronic diarrhea of unknown origin (06/18/15) Bilateral low back pain without sciatica (06/18/15) Chronic depression (06/18/15) Smoker unmotivated to quit (06/18/15) Mixed hyperlipidemia Gastroesophageal reflux disease with esophagitis History of adenomatous polyp of colon (04/15/11) Agustin's esophagus without dysplasia (~2009) Primary insomnia (04/15/11) Surgical History History of lobectomy of lung Family History Mother Congenital heart defect Social History marital status: number of children: 0 household members: none lives independently: Yes caregiver/support person: No housing: other (Mobile home) pets and animals: Yes education level: middle school (7th Grade) occupational status: other (Retired, permanent disability) current occupational exposures/hazards: No Previous occupational history: Various kamini/sabianist: Non-sabianist leisure activities: other (Dog walks) Smoking Status: Current every day smoker Tobacco: How many years used: 40 Smokeless tobacco user: other (Cigarettes) quit status: has quit before alcohol intake: current substance use type: does not use Meds Home Medications and Allergies Home Medications Medication Instructions Recorded Confirmed Type nebulizer and compressor #1 ea 01/06/22 12/07/24 Rx albuterol sulfate 90 mcg/actuation See Rx Instructions .Route 03/31/23 12/07/24 Rx aerosol inhaler (Ventolin HFA) .COMPLEX #18 grams albuterol sulfate 2.5 mg/3 mL 2.5 mg (3 mL) inhalation QID PRN 04/22/23 12/07/24 Rx (0.083 %) solution for nebulization shortness of breath or wheezing #180 mL ipratropium bromide 0.02 % 2.5 ml inhalation QID #150 mL 06/07/23 12/07/24 Rx solution for inhalation pantoprazole 40 mg tablet,delayed 40 mg PO DAILY #30 tabs 10/29/23 12/07/24 Rx release budesonide 0.5 mg/2 mL suspension 0.5 mg (2 mL) inhalation BID #60 mL 06/09/24 12/07/24 Rx for nebulization fluticasone propionate 50 2 spray intranasal HS #16 grams 08/07/24 12/07/24 Rx mcg/actuation nasal spray,suspension lisinopril 20 mg tablet 20 mg PO DAILY #90 tabs 10/04/24 12/07/24 Rx Disabled Parking #1 ea 10/06/24 12/07/24 Rx torsemide 20 mg tablet 60 mg (3 x 20 mg) PO DAILY #270 10/06/24 12/07/24 Rx tabs hydrocodone 10 mg-acetaminophen 1 - 2 tab PO Q4HP PRN back pain 10/30/24 12/07/24 Rx 325 mg tablet #220 tabs prednisone 20 mg tablet 10 mg (1/2 x 20 mg) PO DAILY #90 10/30/24 12/07/24 Rx tabs Allergies Allergy/AdvReac Type Severity Reaction Status Date / Time bupropion [BUPROPION] AdvReac Intermediate dry mouth Verified 10/30/24 14:58 mirtazapine [MIRTAZAPINE] AdvReac Intermediate mood Verified 10/30/24 14:58 instability/anger/etc amlodipine AdvReac Mild edema Verified 10/30/24 14:58 Exam Vital Signs (past 8 hours): - 12/07/24 06:43 12/07/24 06:48 12/07/24 07:00 Temperature 99.1 F Pulse Rate 98 H 91 H Respiratory Rate 18 34 H Blood Pressure 127/86 Pulse Oximetry 74 L 91 96 Oxygen Delivery Method Room Air Nasal Cannula Nasal Cannula Oxygen Flow Rate 2 2 Fraction of Inspired Oxygen 12/07/24 07:24 12/07/24 07:24 12/07/24 07:30 Temperature Pulse Rate 88 Respiratory Rate 24 Blood Pressure 116/77 105/58 L Pulse Oximetry 95 Oxygen Delivery Method Nasal Cannula Oxygen Flow Rate 2 Fraction of Inspired Oxygen 12/07/24 07:30 12/07/24 08:00 12/07/24 08:00 Temperature Pulse Rate 88 92 H 91 H Respiratory Rate 28 H 20 24 Blood Pressure Pulse Oximetry 94 99 96 Oxygen Delivery Method Nasal Cannula Nasal Cannula Nasal Cannula Oxygen Flow Rate 2 2 2 Fraction of Inspired Oxygen 21 12/07/24 08:01 12/07/24 08:01 12/07/24 08:30 Temperature Pulse Rate 93 H Respiratory Rate 26 H Blood Pressure 121/70 114/79 Pulse Oximetry 96 Oxygen Delivery Method Nasal Cannula Oxygen Flow Rate 2 Fraction of Inspired Oxygen 12/07/24 08:30 Temperature Pulse Rate 94 H Respiratory Rate 31 H Blood Pressure Pulse Oximetry 92 Oxygen Delivery Method Nasal Cannula Oxygen Flow Rate 2 Fraction of Inspired Oxygen Fraction of Inspired Oxygen 21 SaO2/FiO2 Ratio 471 Oxygen Delivery Method Nasal Cannula Oxygen Flow Rate 2 Narrative Exam Narrative: Middle-aged male who appears much older than stated age lying on a gurney in the emergency department HEENT-unremarkable Lungs-very diminished breath sounds prolonged expiratory phase with wheezing at the end, no crackles Heart-regular rate and rhythm Abdomen-positive bowel tones soft nontender nondistended Extremities-3+ pitting edema left lower extremity, 2+ right lower extremity, light pinkish erythema present bilaterally lower extremities left greater than right Objective Labs 12/07/24 06:50 12/07/24 06:50 Labs: Laboratory Results - last 24 hr 12/07/24 12/07/24 12/07/24 06:50 07:23 07:31 WBC 8.3 RBC 5.01 Hgb 17.3 Hct 51.7 MCV 103.1 H MCH 34.6 H MCHC 33.5 RDW 14.2 Plt Count 171 Neut % (Auto) 74.3 Lymph % (Auto) 8.8 L [place] % (Auto) 14.6 H Eos % (Auto) 1.9 L Baso % (Auto) 0.4 Neut # (Auto) 6100 Lymph # (Auto) 700 L [place] # (Auto) 1200 H Eos # (Auto) 200 Baso # (Auto) 0 PT 12.1 INR 1.1 APTT 31 VBG pH 7.37 VBG pCO2 83.2 H VBG pO2 25 L VBG HCO3 48 H VBG Total CO2 47 H VBG O2 Saturation 39 L VBG Base Excess 15.5 H FiO2 % 28.0 % Sodium 134 L Potassium 3.6 Chloride 85 L Carbon Dioxide 35 H BUN 42 H Creatinine 1.68 H Estimated GFR 45 L BUN/Creatinine Ratio 25.0 H Glucose 126 H Lactate 1.3 Calcium 8.9 Total Bilirubin 0.7 AST 41 ALT 36 Alkaline Phosphatase 79 Total Creatine Kinase 83 Troponin I 0.040 H NT-Pro-B Natriuret Pep 6590 H Total Protein 7.6 Albumin 4.3 Globulin 3.3 Albumin/Globulin Ratio 1.3 Procalcitonin 0.127 TSH 4.93 H Thyroxine (T4) 4.80 L Urine Color Yellow Urine Appearance Clear Urine pH 5.5 Ur Specific [place] 1.020 Urine Protein Negative Urine Glucose (UA) Negative Urine Ketones Negative Urine Occult Blood Negative Urine Nitrate Negative Urine Bilirubin Negative Urine Urobilinogen 0.2 Ur Leukocyte Esterase Negative Urine RBC 0-1/hpf Urine WBC 0-1/hpf Ur Squamous Epith Cells None seen Urine Bacteria None seen Hyaline Casts 1-5/lpf Ur Culture Indicated? Cult not indicated Vol Urine Centrifuged 10ml (spun) Assessment & Plan Assessment & Plan narrative: 1. COPD exacerbation-patient with severe COPD. I have been unable to get PFTs on him for variety of reasons usually related to transport from [facility]. This point I think he will need some parental steroids and frequent nebulizer treatments. I would also replace his oxygen but be quite cautious given his chronic hypercapnia, I would aim for an O2 saturation of 88-90% at the highest, over fear of suppressing his respiratory drive with excessive oxygen. Patient has been seen once by the Pulmonary Clinic here at [facility]. He was not really responded to nebulizer therapy he was. He has not had any follow-up, again patient has been difficult to follow through with appropriate follow-up testing etcetera. This is certainly complicated his care over time, and continues to be an issue. 2. Possible congestive heart failure-patient deserves repeat echocardiography. Last echo done in December 2023 demonstrated mild diastolic dysfunction but otherwise essentially normal. Probably will benefit from additional diuretic therapy, but I am going to hold off until I have echo results. This is in part due to his acute kidney injury 3. Acute kidney injury-I am assuming patient has been taking more and more of his torsemide to try and get his lower extremity edema to resolve. That is likely produce some degree of acute kidney injury. He may benefit from parental loop diuretics and a carefully controlled fashion may actually improve his renal function, depending on his cardiac function which is why I am waiting on his echo 4. Cardiac-patient with borderline elevated troponin likely related to his renal dysfunction. I do not think there is any acute cardiac issue ongoing at this time. Echocardiography will be done more for evaluation of his left ventricular function volume overload and chamber sizes etcetera. He was certainly that is some point he was going to develop severe cor pulmonale and perhaps that has already begun to happen. Echo should be helpful in this regard 5. Hypertension-holding patient's BAYRON inhibitor for now given the acute kidney injury. Will monitor his blood pressures and consider maybe selective beta- naveen therapy depending on outcomes of echo, if he needs additional antihypertensive agents 6. Chronic opioid dependence-patient with chronic pain primarily in back. He is going to require some ongoing opioid therapy at this point. 7. VTE prophylaxis-Lovenox is appropriate and has been ordered 8. Code status- 9. Disposition-patient with what sounds like from his description horrible home social situation. Will have our care management team evaluate him for possible resources to benefit his care at home and his ongoing issues with transportation meals etcetera 10. Lower extremity edema-patient does not appear to have some sort of low- grade infection going on I am not sure that is a major part of his decline. However I think treating that with some parental antibiotics especially since it is unclear whether he took and I antibiotics at all or not after his November 27 visit. Will hold off on additional diuretic therapy until we see the effect of antimicrobial therapy on his lower extremity issues COVID-19 COVID-19 status: Not tested Time-Based Coding :: [TOTAL MINUTES] spent with patient and on the chart (including review of chart, obtaining history, exam, reviewing outside data, placing orders, documenting exam and treatment plan, and counseling patient) on [DATE]. PROFEE Computer Methods Analyst Document charge(s): Yes Charge Codes Initial inpatient/observation care: 49118
[2024-12-07 09:30] LABS: Troponin I 0.056 ng/mL (0.01-0.034)
[2024-12-07] MEDS: OXYCODONE IR 5 MG TABLET 10 MG PO (10:35)
--- NOTE | 2024-12-07 12:28 | PC.NURSE ---
Reassess; no change. Desats during sleeping. 4L while sleeping.
[2024-12-07] MEDS: methylPREDNISolone 125 MG/2 ML VIAL 60 MG IV ×2 (15:22→20:22)
[2024-12-07] MEDS: cefTRIAXone 1,000 MG in SODIUM CHLORIDE 0.9% 100 ML 200 MG IV (15:22)
[2024-12-07] MEDS: PANTOPRAZOLE DR 40 MG TABLET PO (15:23)
[2024-12-07] MEDS: IPRATROPIUM 0.5 MG/2.5 ML NEB INH (19:15)
--- NOTE | 2024-12-07 23:28 | PC.NURSE ---
1128 Report given to oncoming RN. Plan of care discussed.
[2024-12-08] VITALS (7 sets, daily range): BP systolic 107–147; BP diastolic 75–83; PULSE 72–96; RESP 18–20; TEMP 36.3–36.5; O2SAT 91–100
[2024-12-08 05:21] LABS: Hematocrit 49.8 % (41-53); Hemoglobin 16.6 g/dL (13.5-17.5)
[2024-12-08 05:27] LABS: BUN Creatinine Ratio 30.1 (6-22); Blood Urea Nitrogen 25 mg/dL (9-20); Calcium 8.6 mg/dL (8.4-10.2); Chloride 90 mmol/L (98-107); Estimated Glomerular Filt Rate > 60 mL/min (>60); Glucose 168 mg/dL (80-110); HEMOLYSIS < 15 (0-50); Potassium 4.3 mmol/L (3.4-5.1); Sodium 138 mmol/L (137-145)
[2024-12-08 06:10] LABS: Carbon Dioxide 39 mmol/L (22-32)
[2024-12-08] MEDS: LEVOTHYROXINE 75 MCG TABLET PO (06:24)
[2024-12-08] MEDS: methylPREDNISolone 125 MG/2 ML VIAL 60 MG IV ×3 (06:24→20:26)
[2024-12-08] MEDS: OXYCODONE IR 5 MG TABLET PO ×6 (06:31→22:24)
--- NOTE | 2024-12-08 06:47 | PM.PN.IH.1 ---
Subjective Subjective Date Patient Seen: 12/08/24 Time Patient Seen: 06:47 Interval history: Essentially unchanged. Lab work this morning shows improvement in renal function with a creatinine back to normal. Still with a modest oxygen requirement Adequate urine output with a single dose of Lasix that has been given thus far Patient feeling somewhat better. Breathing is a bit easier he says specially when sitting up. For him that is very clear. Feels like his legs feel better as well. Exam Vital Signs (past 8 hours): - 12/08/24 02:00 Temperature 97.3 F L Pulse Rate 96 H Respiratory Rate 18 Blood Pressure 147/81 H Pulse Oximetry 93 Oxygen Flow Rate 4 Fraction of Inspired Oxygen 32 SaO2/FiO2 Ratio 290 Oxygen Delivery Method Nasal Cannula Oxygen Flow Rate 4 Objective Labs 12/08/24 04:50 12/08/24 04:50 Labs: Laboratory Results - last 24 hr 12/07/24 12/07/24 12/07/24 06:50 07:23 07:31 WBC 8.3 RBC 5.01 Hgb 17.3 Hct 51.7 MCV 103.1 H MCH 34.6 H MCHC 33.5 RDW 14.2 Plt Count 171 Neut % (Auto) 74.3 Lymph % (Auto) 8.8 L [place] % (Auto) 14.6 H Eos % (Auto) 1.9 L Baso % (Auto) 0.4 Neut # (Auto) 6100 Lymph # (Auto) 700 L [place] # (Auto) 1200 H Eos # (Auto) 200 Baso # (Auto) 0 PT 12.1 INR 1.1 APTT 31 VBG pH 7.37 VBG pCO2 83.2 H VBG pO2 25 L VBG HCO3 48 H VBG Total CO2 47 H VBG O2 Saturation 39 L VBG Base Excess 15.5 H FiO2 % 28.0 % Sodium 134 L Potassium 3.6 Chloride 85 L Carbon Dioxide 35 H BUN 42 H Creatinine 1.68 H Estimated GFR 45 L BUN/Creatinine Ratio 25.0 H Glucose 126 H Lactate 1.3 Calcium 8.9 Magnesium Total Bilirubin 0.7 AST 41 ALT 36 Alkaline Phosphatase 79 Total Creatine Kinase 83 Troponin I 0.040 H NT-Pro-B Natriuret Pep 6590 H Total Protein 7.6 Albumin 4.3 Globulin 3.3 Albumin/Globulin Ratio 1.3 Procalcitonin 0.127 TSH 4.93 H Thyroxine (T4) 4.80 L Urine Color Yellow Urine Appearance Clear Urine pH 5.5 Ur Specific [place] 1.020 Urine Protein Negative Urine Glucose (UA) Negative Urine Ketones Negative Urine Occult Blood Negative Urine Nitrate Negative Urine Bilirubin Negative Urine Urobilinogen 0.2 Ur Leukocyte Esterase Negative Urine RBC 0-1/hpf Urine WBC 0-1/hpf Ur Squamous Epith Cells None seen Urine Bacteria None seen Hyaline Casts 1-5/lpf Ur Culture Indicated? Cult not indicated Vol Urine Centrifuged 10ml (spun) 12/07/24 12/08/24 08:57 04:50 WBC RBC Hgb 16.6 Hct 49.8 MCV MCH MCHC RDW Plt Count Neut % (Auto) Lymph % (Auto) [place] % (Auto) Eos % (Auto) Baso % (Auto) Neut # (Auto) Lymph # (Auto) [place] # (Auto) Eos # (Auto) Baso # (Auto) PT INR APTT VBG pH VBG pCO2 VBG pO2 VBG HCO3 VBG Total CO2 VBG O2 Saturation VBG Base Excess FiO2 % Sodium 138 Potassium 4.3 Chloride 90 L Carbon Dioxide 39 H BUN 25 H Creatinine 0.83 Estimated GFR > 60 BUN/Creatinine Ratio 30.1 H Glucose 168 H Lactate Calcium 8.6 Magnesium 2.0 Total Bilirubin AST ALT Alkaline Phosphatase Total Creatine Kinase Troponin I 0.056 H NT-Pro-B Natriuret Pep Total Protein Albumin Globulin Albumin/Globulin Ratio Procalcitonin TSH Thyroxine (T4) Urine Color Urine Appearance Urine pH Ur Specific [place] Urine Protein Urine Glucose (UA) Urine Ketones Urine Occult Blood Urine Nitrate Urine Bilirubin Urine Urobilinogen Ur Leukocyte Esterase Urine RBC Urine WBC Ur Squamous Epith Cells Urine Bacteria Hyaline Casts Ur Culture Indicated? Vol Urine Centrifuged [facility] Medical History Uncomplicated opioid dependence Chronic back pain Hypertension COPD (chronic obstructive pulmonary disease) Chronic diarrhea of unknown origin (06/18/15) Bilateral low back pain without sciatica (06/18/15) Chronic depression (06/18/15) Smoker unmotivated to quit (06/18/15) Mixed hyperlipidemia Gastroesophageal reflux disease with esophagitis History of adenomatous polyp of colon (04/15/11) Agustin's esophagus without dysplasia (~2009) Primary insomnia (04/15/11) Surgical History History of lobectomy of lung Family History Mother Congenital heart defect Social History marital status: number of children: 0 household members: none lives independently: Yes caregiver/support person: No housing: other (Mobile home) pets and animals: Yes education level: middle school (7th Grade) occupational status: other (Retired, permanent disability) current occupational exposures/hazards: No Previous occupational history: Various kamini/gnosticism: Non-yazidi leisure activities: other (Dog walks) Smoking Status: Current every day smoker Tobacco: How many years used: 40 Smokeless tobacco user: other (Cigarettes) quit status: has quit before alcohol intake: current substance use type: does not use Assessment & Plan Assessment & Plan narrative: 1. COPD exacerbation-patient with severe COPD. Continue with parental corticosteroids and frequent nebulizers etcetera. 2. Possible congestive heart failure-patient's renal function clearly demonstrates that he can tolerate additional diuretic therapy. Volume overload likely on the basis of right heart failure secondary to his chronic lung disease based on echo 3. Acute kidney injury-much improved on repeat testing this morning. Will continue with diuretics, and given his stable to improved renal function I think we can be more aggressive with this and I have increased his dosing regimen 4. Cardiac-patient continues with essentially normal left ventricular function on echo. Do not believe this is an acute cardiac issue accept for the volume overload/congestive heart failure with preserved ejection fraction 5. Hypertension-no change in medication for now. Continue to monitor. 6. Disposition-patient with what sounds like from his description horrible home social situation. Will have our care management team evaluate him for possible resources to benefit his care at home and his ongoing issues with transportation meals etcetera 7. Lower extremity edema-continue with diuresis and antibiotic therapy for now. COVID-19 COVID-19 status: Not tested Time-Based Coding :: [TOTAL MINUTES] spent with patient and on the chart (including review of chart, obtaining history, exam, reviewing outside data, placing orders, documenting exam and treatment plan, and counseling patient) on [DATE]. Quality VTE Deep Vein Thrombosis/Pulmonary Embolism Present on Admission: No IH PROFEE Brattice Builder Document charge(s): Yes Charge Codes Subsequent inpatient/observation care: [id number]
--- NOTE | 2024-12-08 06:58 | PC.NURSE ---
pt rested quietly overnight, up to bathroom with assist, slightly unsteady, refused to use walker, SOBOE, O2 sats drop when sleeping to 70s when he removes NC, reapplied and slowly returns to mid 80s, O2 titrated to keep O2 sat 88-90%, congested lungs, productive cough in am, 2-3+ lower leg edema, poor personal hygiene, analgesic given for generalized pain with effect, care ongoing
[2024-12-08] MEDS: IPRATROPIUM 0.5 MG/2.5 ML NEB INH (07:24)
[2024-12-08] MEDS: ALBUTEROL 2.5 MG/3 ML NEB (ADULT) INH (07:25)
[2024-12-08] MEDS: FUROSEMIDE 40 MG/4 ML VIAL IV ×3 (08:26→23:10)
[2024-12-08] MEDS: ENOXAPARIN 40 MG/0.4 ML SYRINGE SUBCUT (08:26)
[2024-12-08] MEDS: PANTOPRAZOLE DR 40 MG TABLET PO (08:26)
[2024-12-08 08:31] LABS: BUN Creatinine Ratio 26.5 (6-22); Blood Urea Nitrogen 22 mg/dL (9-20); Calcium 8.8 mg/dL (8.4-10.2); Chloride 88 mmol/L (98-107); Estimated Glomerular Filt Rate > 60 mL/min (>60); Glucose 169 mg/dL (80-110); Potassium 4.6 mmol/L (3.4-5.1); Sodium 138 mmol/L (137-145)
[2024-12-08] MEDS: NICOTINE 21 MG PATCH TOP (08:35)
--- NOTE | 2024-12-08 08:50 | PC.NURSE ---
Day shift: Pt got out of bed this AM alone and used the bathroom without a problem. Pt was also just given a dose of IV Lasix per NOV this AM and Pt informed that this med can affect BP. Pt voiced understanding of this. Pt also agreed to use call light and ask for assistance the next time they need to get up. Bed alarm is on for safety. Pt will be evaluated by PT/OT today. Call light in reach.
[2024-12-08 09:05] LABS: HEMOLYSIS 21 (0-50)
[2024-12-08 10:10] LABS: Carbon Dioxide 31 mmol/L (22-32)
--- NOTE | 2024-12-08 12:36 | PC.NURSE ---
Day shift: Pt ambulated entire AC unit with PCT this afternoon. Tolerated well. Was on 2L NC O2 the entire time.
[2024-12-08] MEDS: ALBUTEROL/IPRATROPIUM 3 ML AMPUL INH ×2 (13:18→19:24)
--- NOTE | 2024-12-08 14:03 | CM.DANOTE ---
Patient is a 64 yo male who was admitted INPT Status on 12/07/24 for COPD/Hypoxic/Poss CHF. Pt has AARP MCR under [employer] and [facility] for insurance and his PCP is Dr. Robert Zhou at [facility]. EMR was reviewed. Per MD, pt with severe COPD at baseline and remains a current smoker and admitted with lower extremity edema, hypoxia, and possible CHF. SW observed pt ambulating the stafford with WIND UP OPERATOR SBA and pt typically does not use DME for ambulation and denies any need for PT/OT at this time. 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 Difficult to keep pt on topic for discussion about discharge planning needs as MD noted concerns of maybe consistent transportation/compliance with recommendations and meds. SW called Medicaid transport and pt does not have transportation benefits. SW printed off [employer] transportation information and Meals on Wheels in case pt has any food insecurities but due to triage needs unable to meet bedside with pt a second time today. Plan: SW to follow closely for ongoing discharge planning discussion with pt and possible resource needs. GRISEL Mancilla Discharge Planning/Care Management CM Discharge Assessment Start: 12/08/24 14:01 Freq: Status: Active Protocol: Document 12/08/24 14:01 BF (Rec: 12/08/24 14:03 [id number]) Discharge Planning Assessment Assigned Train Operator GRISEL Cottrell DPOA/Assigned Designee Name informally sister Camilla Contact Information [phone] Advance Directives? No Advance Directives on File No History Provided By Patient,Medical Record Has Patient been admitted in last 30 No days? Prior Living Arrangements Mobile home Household Members none Type of transporation used prior to Drives own vehicle admit Independent with ADL's Yes Is patient alert and oriented? Yes Needs Assistance With Managing Medications,Home Chores / Shopping Caregiver for Another No Barriers to Discharge No Discharge Plan Home Transportation Arrangement Likely Sig other or family Additional Comment Printed resources for medical transport and meals on wheels Whiteboard Updated in Patient Room with Yes name and ext. # of Train Operator Review Status In Process Please Provide Date Initial DC 12/08/24 Assessment Was Performed Next Review Type Continued Stay Review
[2024-12-08] MEDS: cefTRIAXone 1,000 MG in SODIUM CHLORIDE 0.9% 100 ML 200 MG IV (14:22)
--- NOTE | 2024-12-08 15:19 | PC.NURSE ---
Day shift: At approx 1450 Pt became panicked and mistook his O2 line for IV line and thought air was going into his veins. He then proceeded to not call nursing and ripped the IV tubing in half. IV remains patent. Restarted IV infusion and explained to Pt the difference between the 2 lines and shown visually.. He is calm at this time. IV infusing and 2L NC in place. Pt does also randomly take his O2 off. Calm light in reach and door to room is open.
--- NOTE | 2024-12-08 18:38 | PC.NURSE ---
Day shift: Dr Zhou made aware Pt with anxiety today with some highs and lows. Dr Zhou reports that this is Pt's normal state. No new orders.
[2024-12-08] MEDS: BUDESONIDE 0.5 MG/2 ML NEB INH (19:23)
[2024-12-08] MEDS: HYDROMORPHONE 2 MG TABLET 4 MG PO (20:26)
[2024-12-08] MEDS: ACETAMINOPHEN 325 MG TABLET 650 MG PO (22:22)
[2024-12-08] MEDS: HYDRALAZINE 25 MG TABLET PO (23:09)
[2024-12-08] MEDS: diphenhydrAMINE 25 MG TABLET PO (23:09)
[2024-12-08] MEDS: TRAZODONE 50 MG TABLET PO (23:09)
[2024-12-09] VITALS (9 sets, daily range): BP systolic 126–137; BP diastolic 72–89; PULSE 71–92; RESP 15–22; TEMP 36.1–36.4; O2SAT 92–95
--- NOTE | 2024-12-09 00:57 | PC.NURSE ---
mini shifter. RN contacted lead consultant provider for patients complaint of itching legs, anxiety, and insomnia. RN recieved and repeated back Verbal orders for PO Benadryl, Trazadon and Hydroxyzine (view in EMAR), RN put in verbal orders into EMAR; RN made a error and selected hydralazine 25mg PO instead of the hydroxyzine 25mg PO, Pt blood pressure was 118/75 RN did not realize mistake until 1 hour after administration when charting, and immediately rechecked patient BP, 169/91. Pt denies any light headedness, vertigo, or N/V. Will continue to recheck BP q1hour VS remain stable will continue to monitor. RN informed patient of medication error, and said he has no concerns and verbalized understanding of situation and complications. Pt did not have any questions. e tailer informed of situation.
[2024-12-09] MEDS: OXYCODONE IR 5 MG TABLET PO ×4 (01:37→22:51)
[2024-12-09] MEDS: LEVOTHYROXINE 75 MCG TABLET PO (06:10)
[2024-12-09] MEDS: FUROSEMIDE 40 MG/4 ML VIAL IV ×2 (06:10→15:22)
[2024-12-09] MEDS: BUDESONIDE 0.5 MG/2 ML NEB INH ×2 (09:03→18:14)
[2024-12-09] MEDS: ALBUTEROL/IPRATROPIUM 3 ML AMPUL INH ×3 (09:03→18:14)
[2024-12-09 09:20] LABS: Add Manual Diff / Slide Review NO; Basophils Absolute Auto 0 /uL (0-100); Basophils Percent Auto 0.3 % (0-2); Eosinophils Absolute Auto 0 /uL (0-450); Hematocrit 48.1 % (41-53); Lymphocytes Absolute Auto 300 /uL (1100-4500); Lymphocytes Percent Auto 2.1 % (25-40); Mean Corpuscular HGB Conc 33.3 % (30-36); Mean Corpuscular Hemoglobin 34.7 PG (26-34); Mean Corpuscular Volume 104.1 fL (80-100); Monocytes Absolute Auto 1000 /uL (0-900); Monocytes Percent Auto 7.7 % (3-14); Neutrophils Absolute Auto 11400 /uL (1500-7000); Neutrophils Percent Auto 89.9 % (50-75); Platelet Count 180 X10^3/uL (150-400); Red Blood Cell Count 4.62 X10^6/uL (4.5-5.9); Red Cell Distribution Width 14.2 % (11.6-14.8); White Blood Cell Count 12.7 X10^3/uL (4.5-11.0)
[2024-12-09 09:31] LABS: BUN Creatinine Ratio 26.3 (6-22); Blood Urea Nitrogen 25 mg/dL (9-20); Calcium 8.4 mg/dL (8.4-10.2); Chloride 84 mmol/L (98-107); Estimated Glomerular Filt Rate > 60 mL/min (>60); Glucose 137 mg/dL (80-110); HEMOLYSIS 17 (0-50); Potassium 4.2 mmol/L (3.4-5.1); Sodium 135 mmol/L (137-145)
[2024-12-09] MEDS: PANTOPRAZOLE DR 40 MG TABLET PO (10:05)
[2024-12-09] MEDS: ENOXAPARIN 40 MG/0.4 ML SYRINGE SUBCUT (10:05)
[2024-12-09] MEDS: NICOTINE 21 MG PATCH TOP (10:05)
[2024-12-09 10:11] LABS: Carbon Dioxide 43 mmol/L (22-32)
--- NOTE | 2024-12-09 11:36 | PT-IP ANOTE ---
Pt declined Physical Therapy at this time. He is resting in bed. He voices his desire to discharge home. He reports needing more help at home. Will follow for evaluation.
--- NOTE | 2024-12-09 11:38 | P.PN_ITS ---
Subjective Subjective Date Patient Seen: 12/09/24 Time Patient Seen: 11:38 Interval history: Sleeping when this physician came by today. Had significant difficulty getting to sleep last night due to anxiety and itchiness, so did not disturb. Did benefit from a combination of benadryl, hydroxyzine, and trazodone. Exam Vital Signs (past 8 hours): - 12/09/24 08:00 12/09/24 08:45 12/09/24 09:03 Temperature 97.2 F L Pulse Rate 85 86 Respiratory Rate 15 22 Blood Pressure 129/80 Pulse Oximetry 92 95 Oxygen Delivery Method Nasal Cannula Nasal Cannula Oxygen Flow Rate 1.5 12/09/24 09:11 Temperature Pulse Rate 88 Respiratory Rate 20 Blood Pressure Pulse Oximetry 95 Oxygen Delivery Method Nasal Cannula Oxygen Flow Rate 1.5 Fraction of Inspired Oxygen 32 SaO2/FiO2 Ratio 290 Oxygen Delivery Method Nasal Cannula Oxygen Flow Rate 1.5 Objective Labs 12/09/24 09:10 12/09/24 09:10 Labs: Laboratory Results - last 24 hr 12/09/24 09:10 WBC 12.7 H RBC 4.62 Hgb 16.0 Hct 48.1 MCV 104.1 H MCH 34.7 H MCHC 33.3 RDW 14.2 Plt Count 180 Neut % (Auto) 89.9 H Lymph % (Auto) 2.1 L [place] % (Auto) 7.7 Eos % (Auto) 0.0 L Baso % (Auto) 0.3 Neut # (Auto) 20107 H Lymph # (Auto) 300 L [place] # (Auto) 1000 H Eos # (Auto) 0 Baso # (Auto) 0 Sodium 135 L Potassium 4.2 Chloride 84 L Carbon Dioxide 43 H* BUN 25 H Creatinine 0.95 Estimated GFR > 60 BUN/Creatinine Ratio 26.3 H Glucose 137 H Calcium 8.4 PFSH Medical History Uncomplicated opioid dependence Chronic back pain Hypertension COPD (chronic obstructive pulmonary disease) Chronic diarrhea of unknown origin (06/18/15) Bilateral low back pain without sciatica (06/18/15) Chronic depression (06/18/15) Smoker unmotivated to quit (06/18/15) Mixed hyperlipidemia Gastroesophageal reflux disease with esophagitis History of adenomatous polyp of colon (04/15/11) Agustin's esophagus without dysplasia (~2009) Primary insomnia (04/15/11) Surgical History History of lobectomy of lung Family History Mother Congenital heart defect Social History marital status: number of children: 0 household members: none lives independently: Yes caregiver/support person: No housing: other (Mobile home) pets and animals: Yes education level: middle school (7th Grade) occupational status: other (Retired, permanent disability) current occupational exposures/hazards: No Previous occupational history: Various kamini/mu-ism: Non-restorationism leisure activities: other (Dog walks) Smoking Status: Current every day smoker Tobacco: How many years used: 40 Smokeless tobacco user: other (Cigarettes) quit status: has quit before alcohol intake: current substance use type: does not use Assessment & Plan Assessment and plan (1) COPD exacerbation: Status: Acute (2) CHF (congestive heart failure): Qualifiers: Heart failure chronicity: acute on chronic Heart failure type: u nspecified Qualified Code(s): I50.9 - Heart failure, unspecified Status: Acute (3) Acute kidney injury: Status: Acute (4) Hypertension: Qualifiers: Hypertension type: essential hypertension Qualified Code(s): I10 - Essential (primary) hypertension Status: Chronic (5) Cellulitis of right leg: Status: Acute (6) Peripheral edema: Status: Chronic (7) Primary insomnia: Status: Chronic Assessment & Plan narrative: 1. COPD exacerbation. Patient with severe COPD at baseline. CO2 elevated this morning but breathing comfortably on exam and per nursing report with appropriate O2 sat on 1L NC. - Continue with parental corticosteroids and frequent nebulizers 2. Possible congestive heart failure. Patient's renal function clearly demonstrates that he can tolerate additional diuretic therapy. Volume overload likely on the basis of right heart failure secondary to his chronic lung disease based on echo, which showed essentially normal left ventricular function with preserved EF. - Lasix BID 3. Acute kidney injury. Much improved since admission, now at baseline. Will continue with diuretics, and given his improved renal function. 5. Hypertension. Adequately controlled, no change in medication for now. 6. Lower extremity edema. Possible cellulitis. Net negative 750 ml since admission. - Continue with diuresis and antibiotic therapy for now 7. Disposition. Patient with what sounds like from his description horrible home social situation. Will have our care management team evaluate him for possible resources to benefit his care at home and his ongoing issues with transportation, meals, etcetera. - Continue hydroxizine prn for anxiety, trazodone qhs for sleep COVID-19 COVID-19 status: Not tested Time-Based Coding :: 20 minutes spent with patient and on the chart (including review of chart, obtaining history, exam, reviewing outside data, placing orders, documenting exam and treatment plan, and counseling patient) on 12/09/2024. 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
[2024-12-09] MEDS: methylPREDNISolone 125 MG/2 ML VIAL 60 MG IV ×2 (13:26→21:00)
[2024-12-09] MEDS: cefTRIAXone 1,000 MG in SODIUM CHLORIDE 0.9% 100 ML 200 MG IV (15:22)
[2024-12-09] MEDS: hydrOXYzine HCL 25 MG TABLET PO (22:50)
[2024-12-09] MEDS: diphenhydrAMINE 25 MG TABLET PO (22:50)
[2024-12-09] MEDS: TRAZODONE 50 MG TABLET PO (22:51)
[2024-12-09] MEDS: ACETAMINOPHEN 325 MG TABLET 650 MG PO (22:51)
--- NOTE | 2024-12-09 23:15 | PC.NURSE ---
night shift supervisor Pt informed staff that he would like to be left alone for rest of night, he would call us if he needed any help. RN informed HORSE GROOMER and we will respect his choice. RN informed that staff will still do Pt safety checks from the doorway without disturbing patient.
[2024-12-10] MEDS: LEVOTHYROXINE 75 MCG TABLET PO (05:52)
[2024-12-10] MEDS: methylPREDNISolone 125 MG/2 ML VIAL 60 MG IV ×3 (05:52→21:38)
[2024-12-10 08:00] VITALS: BP 129/93; PULSE 85; RESP 19; TEMP 36.6; O2SAT 93
[2024-12-10] MEDS: ENOXAPARIN 40 MG/0.4 ML SYRINGE SUBCUT (08:07)
[2024-12-10] MEDS: OXYCODONE IR 5 MG TABLET PO ×4 (08:08→21:37)
[2024-12-10] MEDS: FUROSEMIDE 40 MG/4 ML VIAL IV ×2 (08:08→21:38)
[2024-12-10] MEDS: PANTOPRAZOLE DR 40 MG TABLET PO (08:08)
[2024-12-10] MEDS: NICOTINE 21 MG PATCH TOP (08:08)
[2024-12-10] MEDS: ACETAMINOPHEN 325 MG TABLET 650 MG PO (08:09)
[2024-12-10] MEDS: BUDESONIDE 0.5 MG/2 ML NEB INH ×2 (09:00→21:17)
[2024-12-10] MEDS: ALBUTEROL/IPRATROPIUM 3 ML AMPUL INH ×3 (09:00→21:17)
[2024-12-10 09:08] VITALS: PULSE 87; RESP 18; O2SAT 93
[2024-12-10 09:14] LABS: Add Manual Diff / Slide Review NO; Basophils Absolute Auto 0 /uL (0-100); Basophils Percent Auto 0.1 % (0-2); Eosinophils Absolute Auto 0 /uL (0-450); Eosinophils Percent Auto 0.1 % (2-4); Hematocrit 52.2 % (41-53); Hemoglobin 17.4 g/dL (13.5-17.5); Lymphocytes Absolute Auto 200 /uL (1100-4500); Lymphocytes Percent Auto 1.9 % (25-40); Mean Corpuscular HGB Conc 33.3 % (30-36); Monocytes Absolute Auto 500 /uL (0-900); Monocytes Percent Auto 4.4 % (3-14); Neutrophils Absolute Auto 10200 /uL (1500-7000); Neutrophils Percent Auto 93.5 % (50-75); Platelet Count 200 X10^3/uL (150-400); Red Blood Cell Count 4.97 X10^6/uL (4.5-5.9); Red Cell Distribution Width 14.3 % (11.6-14.8); White Blood Cell Count 10.9 X10^3/uL (4.5-11.0)
[2024-12-10 09:29] LABS: BUN Creatinine Ratio 30.1 (6-22); Blood Urea Nitrogen 25 mg/dL (9-20); Calcium 8.8 mg/dL (8.4-10.2); Chloride 87 mmol/L (98-107); Estimated Glomerular Filt Rate > 60 mL/min (>60); Glucose 183 mg/dL (80-110); HEMOLYSIS 32 (0-50); Potassium 4.5 mmol/L (3.4-5.1); Sodium 138 mmol/L (137-145)
[2024-12-10 09:35] LABS: Carbon Dioxide 38 mmol/L (22-32)
--- NOTE | 2024-12-10 11:13 | PM.PN.IH.1 ---
Subjective Subjective Date Patient Seen: 12/10/24 Time Patient Seen: 12:30 Interval history: Seated in the bedside chair eating lunch. Reports feeling much improved compared to past few days, able to eat food without difficulty but still becomes quite short of breath and dizzy soon as he stands up. Believes he will likely need oxygen at home upon discharge, says it has been under consideration with his primary physician for some time now. Exam Vital Signs (past 8 hours): - 12/10/24 07:00 12/10/24 08:00 12/10/24 09:08 Temperature 97.8 F Pulse Rate 85 87 Respiratory Rate 19 18 Blood Pressure 129/93 H Pulse Oximetry 93 93 Oxygen Delivery Method Nasal Cannula Nasal Cannula Oxygen Flow Rate 1 1 Fraction of Inspired Oxygen 32 SaO2/FiO2 Ratio 290 Oxygen Delivery Method Nasal Cannula Oxygen Flow Rate 1 Objective Labs 12/10/24 08:53 12/10/24 08:53 Labs: Laboratory Results - last 24 hr 12/10/24 08:53 WBC 10.9 RBC 4.97 Hgb 17.4 Hct 52.2 MCV 105.0 H MCH 35.0 H MCHC 33.3 RDW 14.3 Plt Count 200 Neut % (Auto) 93.5 H Lymph % (Auto) 1.9 L [place] % (Auto) 4.4 Eos % (Auto) 0.1 L Baso % (Auto) 0.1 Neut # (Auto) 86356 H Lymph # (Auto) 200 L [place] # (Auto) 500 Eos # (Auto) 0 Baso # (Auto) 0 Sodium 138 Potassium 4.5 Chloride 87 L Carbon Dioxide 38 H BUN 25 H Creatinine 0.83 Estimated GFR > 60 BUN/Creatinine Ratio 30.1 H Glucose 183 H Calcium 8.8 PFSH Medical History Uncomplicated opioid dependence Chronic back pain Hypertension COPD (chronic obstructive pulmonary disease) Chronic diarrhea of unknown origin (06/18/15) Bilateral low back pain without sciatica (06/18/15) Chronic depression (06/18/15) Smoker unmotivated to quit (06/18/15) Mixed hyperlipidemia Gastroesophageal reflux disease with esophagitis History of adenomatous polyp of colon (04/15/11) Agustin's esophagus without dysplasia (~2009) Primary insomnia (04/15/11) Surgical History History of lobectomy of lung Family History Mother Congenital heart defect Social History marital status: number of children: 0 household members: none lives independently: Yes caregiver/support person: No housing: other (Mobile home) pets and animals: Yes education level: middle school (7th Grade) occupational status: other (Retired, permanent disability) current occupational exposures/hazards: No Previous occupational history: Various kamini/episcopal: Non-yazidi leisure activities: other (Dog walks) Smoking Status: Current every day smoker Tobacco: How many years used: 40 Smokeless tobacco user: other (Cigarettes) quit status: has quit before alcohol intake: current substance use type: does not use Assessment & Plan Assessment and plan (1) COPD exacerbation: Status: Acute (2) CHF (congestive heart failure): Qualifiers: Heart failure chronicity: acute on chronic Heart failure type: unspecified Qualified Code(s): I50.9 - Heart failure, unspecified Status: Acute (3) Acute kidney injury: Status: Acute (4) Hypertension: Qualifiers: Hypertension type: essential hypertension Qualified Code(s): I10 - Essential (primary) hypertension Status: Chronic (5) Cellulitis of right leg: Status: Acute (6) Peripheral edema: Status: Chronic (7) Primary insomnia: Status: Chronic Plan 64-year-old male with severe COPD, current smoker, CHF, hypertension admitted for COPD exacerbation and bilateral lower extremities swelling concerning for cellulitis. Assessment & Plan narrative: 1. COPD exacerbation. Patient with severe COPD at baseline. Clinically improved today, eating lunch and speaking in complete sentences without any difficulty. CO2 still elevated but trending downward with appropriate O2 sat on 1L NC. - Will switch to p.o. prednisone in anticipation of outpatient taper - Continue frequent nebulizers 2. Lower extremity edema. Possible cellulitis. Swelling much improved according to patient report, euvolemic with no edema on exam. - Continue antibiotic therapy 3. Possible congestive heart failure. Initial volume overload likely on the basis of right heart failure secondary to his chronic lung disease based on echo, which showed essentially normal left ventricular function with preserved EF. Net negative 750 ml since admission. - Lasix BID 4. Acute kidney injury. Much improved since admission, now at baseline. Will continue with diuretics given his improved renal function. 5. Hypertension. Adequately controlled, no change in medication for now. 6. Disposition. Patient with what sounds like from his description horrible home social situation. Will have our care management team evaluate him for possible resources to benefit his care at home and his ongoing issues with transportation, meals, etcetera. - Continue hydroxizine prn for anxiety, trazodone qhs for sleep COVID-19 COVID-19 status: Not tested Time-Based Coding :: 20 minutes spent with patient and on the chart (including review of chart, obtaining history, exam, reviewing outside data, placing orders, documenting exam and treatment plan, and counseling patient) on 12/10/2024. 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
--- NOTE | 2024-12-10 11:30 | PT.IIE ---
Current Diagnoses Primary insomnia (12/07/24) Essential (primary) hypertension (12/07/24) Heart failure, unspecified (12/07/24) Chronic obstructive pulmonary disease with (acute) exacerbation (12/07/24) Cellulitis of right lower limb (12/07/24) Acute kidney failure, unspecified (12/07/24) Edema, unspecified (12/07/24) Surgical History (Last Reviewed 10/06/24 @ 15:11 by Robert Zhou MD) History of lobectomy of lung Medical History (Last Reviewed 10/06/24 @ 15:11 by Robert Zhou MD) Agustin's esophagus without dysplasia (~2009) Bilateral low back pain without sciatica (06/18/15) Chronic back pain Chronic depression (06/18/15) Chronic diarrhea of unknown origin (06/18/15) COPD (chronic obstructive pulmonary disease) Gastroesophageal reflux disease with esophagitis History of adenomatous polyp of colon (04/15/11) Hypertension Mixed hyperlipidemia Primary insomnia (04/15/11) Smoker unmotivated to quit (06/18/15) Uncomplicated opioid dependence Physical Therapy Inpatient Evaluation/Re-Eval M1 PT/OT-IP Prior Functional Status Start: 12/10/24 09:25 Freq: NEEDED Status: Active Protocol: Document 12/10/24 10:45 MB (Rec: 12/10/24 11:30 MB [id number]) Medical Review Prior Functional Status Medical History Reviewed Yes Diet/Fluid Consistency Regular Communication Pt with tangental conversation /communication, states today is his birthday and his birthday was 3 days ago. States he was sleeping upon PT arrival and then later states that he just got off the phone with the remote inpatient coder and his dog is alone and there are neighbor concerns and that he is angry with the EMS personel that did not let him take care of his dog. He states he needs help with everything at home and cannot bathe or dress himself, gets MOW and uses EMS to get to the doctor Mobility and Gait Pt reports falls, has cane Activities of Daily Living and IADL's See above, pt does not answer all questions clearly Social History Household Members none Living Arrangements Mobile home Number of Floors (Floors) One Floor Number of Stairs To Enter/Railing? 7 steps and no rails to enter and pt reports falls trying to navigate steps Home Environment High Toilet,Tub/Shower Home Equipment Straight Cane,Hand Held Shower Additional Social History Comment Not working M2 PT-IP Current Condition Start: 12/10/24 09:25 Freq: NEEDED Status: Active Protocol: Document 12/10/24 10:45 MB (Rec: 12/10/24 11:30 MB [id number]) Physical Therapy Current Condition Current Condition Evaluation Date 12/10/24 Treatment Diagnosis SOB in setting of advanced COPD, no O2 at home M3 PT-IP Subjective Start: 12/10/24 09:25 Freq: NEEDED Status: Active Protocol: Document 12/10/24 10:45 MB (Rec: 12/10/24 11:30 MB [id number]) Subjective Physical Therapy Visit Type Type Initial Evaluation Visit Start Time 10:45 Visit Stop Time 11:05 Number of WHARF LABORER Visits 0 Physical Therapy Visit Comments Patient Comments Pt with tangental conversation . States he was asleep and then during PT, states he was just on the phone with the remote inpatient coder about his dog who is home alone and the neighbors are upset and asks to stop PT to call someone, then forgets about this Therapy Pain Assessment Pain When Pain Assessed At Rest Pain Present Pain Present Pain Reported Location Feet Scale Used No number given, states feet always hurt d/t cellulitis M4 PT-IP Mobility and Gait Start: 12/10/24 09:25 Freq: NEEDED Status: Active Protocol: Document 12/10/24 10:45 MB (Rec: 12/10/24 11:30 MB [id number]) PT-Bed Mobility Assessment Rolling Type of Rolling Roll to Right,Roll to Left Level of Assist Independent Supine to Sit Supine to Sit Standby Assistance Sit to Supine Sit to Supine Standby Assistance Scooting Scooting to Edge of Bed Standby Assistance PT-Transfer Assessment Sit to and From Stand Sit to and from Stand Contact Guard Assistance Equipment Transfer Assistive Device None Orthotic/Prosthetic Devices or Brace: No Transfers Transfer Destination Chair Transfer Technique Stepping Transfer Ability Level of Assist Contact Guard Assistance Comments Mobility Comments Pt getting up before PT can get chair and gait belt ready CGA and PT checks orthostatics with BP and HR in LUE: supine 131/89; standing 123/76, standing 1' 121/78 and HR remains in the high 80s. O2 on 1L O2 remains around 92% and pt does have some PAUL Gait Assessment Gait Gait Assistance Required: Contact Guard Assist Distance (Feet) 3 Able to Maintain Weight Bearing Status Yes During Gait Assistive Devices Assistive Device None Orthotic/Prosthetic Devices or Brace: No Gait Deviations General Gait Pattern Flexed Trunk,Wide Based Gait Factors Limiting Gait Function Factors Limiting Gait Function Difficulty Following Directions,Poor Balance,Poor Safety Awareness PT-Balance Assessment Sitting Balance and Reactions Static Sitting Balance Ability Normal Dynamic Sitting Balance Ability Good Standing Balance and Reactions Static Standing Balance Ability Good Dynamic Standing Balance Ability Fair Device Used Occ PT CGA M5 PT-IP Objective Assessments Start: 12/10/24 09:25 Freq: NEEDED Status: Active Protocol: Document 12/10/24 10:45 MB (Rec: 12/10/24 11:30 MB [id number]) Orientation Orientation/Cognition Level of Alertness Confusional State Orientation Name,Birthday Safety Awareness Decreased Safety Awareness Memory Description Short Term Impaired,Care Home Impaired Comments Pt does not answer all questions when asked and makes tangental conversation/ remarks. May benefit from cognitive assessment/OT consult Gross Range of Motion Upper Extremity ROM Impairments Pt does not follow commands, PT does not perceive limitations with functional mobility and orthostatics Lower Extremity ROM Impairments B LE with mild edema and small scabs Strength Comments Strength Comments Pt does not follow ROM or MMT commands Coordination Assessment Assessment Coordination Comments Pt does not follow commands Sensation Assessment Comments Sensation Comments Pt does not follow commands M6 PT-IP Treatment Start: 12/10/24 09:25 Freq: NEEDED Status: Active Protocol: Document 12/10/24 10:45 MB (Rec: 12/10/24 11:30 MB [id number]) Physical Therapy Treatment Education Education Provided Safety M7 PT-IP Assessment and Plan Start: 12/10/24 09:25 Freq: NEEDED Status: Active Protocol: Document 12/10/24 10:45 MB (Rec: 12/10/24 11:30 MB [id number]) PT Summary Assessment and Plan Potential Rehabilitation Potential Fair Status of Condition at Evaluation Evolving Summary Impairments Pain,ROM,Strength,Balance, Coordination,Sensation, Cognition,Bed Mobility, Transfers,Gait,Activity Tolerance Progress Towards Goals Slow Progress - Other Assessment Summary Pt is a 64 y/o male adm with SOB in setting of advanced COPD and he reports not using O2 at home. Pt states that today is his birthday but his birthday was 3 days ago. He states he was sleeping on PT arrival and then he states that he just got off the phone with his remote inpatient coder because his dog is home alone and his neighbors called. He is very angry at the EMS personel who picked him up because they would not let him take care of his dog. He reports he has no friends or help and that he needs help for bathing and dressing. He gets MOW and I call 911 to go to the doctor. His systolic and diastolic BPs drop with supine to stand and he requires CGA for minimal mobility and O2 sats remain in the low 90s on 1L O2 . Pt becomes insistant about calling someone about his dog and then he forgets, in less than 5 minutes, and PT sets up room including handing him his phone and putting alarm on gown. Overall, pt is most appropriate for SNF given no help at home and cognitive presentation, high fall risk with reports of falls at home. Goals Bed Mobility Goal Independent Transfer Goal Independent,Cane,Front Wheeled Walker,Four Wheeled Walker Gait Goal Independent,Cane,Front Wheel Walker,Four Wheel Walker Gait Distance 100 Other Goals Pt will ascend and descend 7 steps with LRAD and no more than CGA to allow safe home entrance. Days to Meet Goals 5 Frequency of Treatment Frequency Of Treatment Once a Day Treatment Plan Physical Therapy Treatment Plan Bed Mobility Training,Transfer Training,Gait Training, Therapeutic Exercise,Balance Retraining,Discharge Planning, Hot or Cold Pack,Neuromuscular Re-ed,Coordination Retraining ,Manual Therapy Recommendations To Nursing Amount of Assist Needed 1 Person Assist Discharge Recommendations PT Discharge Recommendations SNF Rehab Transportation Needs at Discharge Private Vehicle - PT assist x1
[2024-12-10 14:00] VITALS: PULSE 88; RESP 18; O2SAT 94
--- NOTE | 2024-12-10 14:45 | CM.DPNOTE ---
DCP Note [employer] OFF[employer] reviewed EMR Per Dr. Elizabeth report, unsure if pt will need home O2 eval or not. Zhou to follow Wednesday. Per PT, rec SNF due to cognitive impairments. pt was ambulating indep in hallways previously. likely could benefit from OT eval Wednesday. [employer]. [employer] OFF[employer] unable to meet with pt Wednesday due to triaging needs. P: return home vs SNF, pending preference/agreeable? if SNF, auth/PASRR needed. CM team will continue to follow closely for DCP coordination- will provide [employer]/[facility] transport resources. Paula Acevedo, GRISEL
[2024-12-10 16:00] VITALS: BP 136/110; PULSE 92; RESP 19; TEMP 36.4; O2SAT 95
[2024-12-10] MEDS: cefTRIAXone 1,000 MG in SODIUM CHLORIDE 0.9% 100 ML 200 MG IV (16:22)
[2024-12-10 20:00] VITALS: BP 137/84; PULSE 82; RESP 18; TEMP 36.8; O2SAT 92
[2024-12-10] MEDS: TRAZODONE 50 MG TABLET PO (21:38)
[2024-12-10] MEDS: HYDROMORPHONE 2 MG TABLET 4 MG PO (23:13)
[2024-12-11] VITALS (7 sets, daily range): BP systolic 126–138; BP diastolic 82–87; PULSE 83–92; RESP 18–22; TEMP 35.8–36.7; O2SAT 91–96
[2024-12-11] MEDS: HYDROMORPHONE 2 MG TABLET 4 MG PO ×4 (04:50→22:51)
[2024-12-11] MEDS: LEVOTHYROXINE 75 MCG TABLET PO (05:09)
[2024-12-11] MEDS: ALBUTEROL/IPRATROPIUM 3 ML AMPUL INH ×3 (07:26→20:20)
[2024-12-11] MEDS: BUDESONIDE 0.5 MG/2 ML NEB INH ×2 (07:26→20:20)
[2024-12-11 07:36] LABS: BUN Creatinine Ratio 36.9 (6-22); Blood Urea Nitrogen 24 mg/dL (9-20); Calcium 8.7 mg/dL (8.4-10.2); Chloride 87 mmol/L (98-107); Estimated Glomerular Filt Rate > 60 mL/min (>60); Glucose 161 mg/dL (80-110); HEMOLYSIS 34 (0-50); Potassium 4.2 mmol/L (3.4-5.1); Sodium 134 mmol/L (137-145)
[2024-12-11 07:43] LABS: Carbon Dioxide 38 mmol/L (22-32)
--- NOTE | 2024-12-11 07:45 | PM.PN.IH.1 ---
Subjective Subjective Date Patient Seen: 12/11/24 Time Patient Seen: 07:45 Interval history: patient basically with uneventful weekend Seems to be improved. Nice diuresis with decreasing lower extremity edema. Labs have been stable. Seen by Physical therapy who has noted, along with other staff, that he was confused and has some physical limitations , PT recommends OT evaluation and probable assisted placement given his confusion and physical disabilities in combination with his home living environment This morning patient is sitting up working on breakfast. He was concerned about his dog but does have a caregiver there for the dog he was least helping to care for the dog. He feels more comfortable about that He also is concerned about being able to go home safely. Does note his lower extremities are much less swollen although not back to normal by any means. He agrees the redness is gone and the odd sensations are improved Also reports his breathing is definitely much better Exam Vital Signs (past 8 hours): - 12/11/24 02:00 12/11/24 07:26 Temperature 96.4 F L Pulse Rate 83 87 Respiratory Rate 18 18 Blood Pressure 138/84 Pulse Oximetry 94 92 Oxygen Delivery Method Nasal Cannula Oxygen Flow Rate 1 1 Fraction of Inspired Oxygen 24 Fraction of Inspired Oxygen 24 SaO2/FiO2 Ratio 383 Oxygen Delivery Method Nasal Cannula Oxygen Flow Rate 1 Objective Labs 12/10/24 08:53 12/11/24 07:03 Labs: Laboratory Results - last 24 hr 12/10/24 12/11/24 08:53 07:03 WBC 10.9 RBC 4.97 Hgb 17.4 Hct 52.2 MCV 105.0 H MCH 35.0 H MCHC 33.3 RDW 14.3 Plt Count 200 Neut % (Auto) 93.5 H Lymph % (Auto) 1.9 L Curry % (Auto) 4.4 Eos % (Auto) 0.1 L Baso % (Auto) 0.1 Neut # (Auto) 68821 H Lymph # (Auto) 200 L Curry # (Auto) 500 Eos # (Auto) 0 Baso # (Auto) 0 Sodium 138 134 L Potassium 4.5 4.2 Chloride 87 L 87 L Carbon Dioxide 38 H 38 H BUN 25 H 24 H Creatinine 0.83 0.65 L Estimated GFR > 60 > 60 BUN/Creatinine Ratio 30.1 H 36.9 H Glucose 183 H 161 H Calcium 8.8 8.7 PFSH Medical History Uncomplicated opioid dependence Chronic back pain Hypertension COPD (chronic obstructive pulmonary disease) Chronic diarrhea of unknown origin (06/18/15) Bilateral low back pain without sciatica (06/18/15) Chronic depression (06/18/15) Smoker unmotivated to quit (06/18/15) Mixed hyperlipidemia Gastroesophageal reflux disease with esophagitis History of adenomatous polyp of colon (04/15/11) Agustin's esophagus without dysplasia (~2009) Primary insomnia (04/15/11) Surgical History History of lobectomy of lung Family History Mother Congenital heart defect Social History marital status: number of children: 0 household members: none lives independently: Yes caregiver/support person: No housing: other (Mobile home) pets and animals: Yes education level: middle school (7th Grade) occupational status: other (Retired, permanent disability) current occupational exposures/hazards: No Previous occupational history: Various kamini/temple: Non-latter day leisure activities: other (Dog walks) Smoking Status: Current every day smoker Tobacco: How many years used: 40 Smokeless tobacco user: other (Cigarettes) quit status: has quit before alcohol intake: current substance use type: does not use Assessment & Plan Assessment & Plan narrative: 1. COPD exacerbation-patient with severe COPD. continue with oral corticosteroids frequent nebulizers Etcetera. Will evaluate for home oxygen as well, which seems necessary 2. Possible congestive heart failure- continue with parental diuresis which he has been quite effective in reducing his lower extremity edema 3. Acute kidney injury- stable despite diuresis. No concerns at this time 4. Hypertension-no change in medication for now. Continue to monitor. 5. Disposition- skilled therapy concerned about ability of patient to return home. Have consulted occupational therapy whom I anticipate will perform a cognitive screen as part of this process in an effort to decide whether not he can safely return home. Unsure as to what options exist beyond assisted facility or returning home for patient 6. Lower extremity edema- as above continue with the aggressive parental diuretics and will switch to oral antibiotics COVID-19 COVID-19 status: Not tested Time-Based Coding :: [TOTAL MINUTES] spent with patient and on the chart (including review of chart, obtaining history, exam, reviewing outside data, placing orders, documenting exam and treatment plan, and counseling patient) on [DATE]. Quality VTE Deep Vein Thrombosis/Pulmonary Embolism Present on Admission: No IH PROFEE Barrel Lathe Operator Outside Document charge(s): Yes Charge Codes Subsequent inpatient/observation care: [id number]
[2024-12-11] MEDS: NICOTINE 21 MG PATCH TOP (09:23)
[2024-12-11] MEDS: ENOXAPARIN 40 MG/0.4 ML SYRINGE SUBCUT (09:23)
[2024-12-11] MEDS: PANTOPRAZOLE DR 40 MG TABLET PO (09:24)
[2024-12-11] MEDS: predniSONE 20 MG TABLET 40 MG PO (09:24)
[2024-12-11] MEDS: FUROSEMIDE 40 MG/4 ML VIAL IV ×2 (09:24→18:38)
[2024-12-11] MEDS: cephALEXin 250 MG CAPSULE 500 MG PO ×3 (09:24→20:07)
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
[2024-12-11] MEDS: OXYCODONE IR 5 MG TABLET PO ×2 (10:41→20:08)
[2024-12-11] MEDS: ACETAMINOPHEN 325 MG TABLET 650 MG PO (10:41)
--- NOTE | 2024-12-11 15:55 | PT.IPTN ---
Current Diagnoses Primary insomnia (12/07/24) Essential (primary) hypertension (12/07/24) Heart failure, unspecified (12/07/24) Chronic obstructive pulmonary disease with (acute) exacerbation (12/07/24) Cellulitis of right lower limb (12/07/24) Acute kidney failure, unspecified (12/07/24) Edema, unspecified (12/07/24) Physical Therapy Treatment Note M2 PT-IP Current Condition Start: 12/10/24 09:25 Freq: NEEDED Status: Active Protocol: Document 12/10/24 10:45 MB (Rec: 12/10/24 11:30 MB [id number]) Physical Therapy Current Condition Current Condition Evaluation Date 12/10/24 Treatment Diagnosis SOB in setting of advanced COPD, no O2 at home M3 PT-IP Subjective Start: 12/10/24 09:25 Freq: NEEDED Status: Active Protocol: Document 12/11/24 15:42 MB (Rec: 12/11/24 15:54 MB [id number]) Subjective Physical Therapy Visit Type Type Treatment Note Visit Start Time 15:42 Visit Stop Time 15:50 Number of HARDWARE DESIGNER Visits 0 Physical Therapy Visit Comments Patient Comments Pt sitting up on EOB and initially agreeable to PT. Once up and PT trying to check O2 sats on 1L with gait, pt becomes very agitated and wishes to stop and be left alone. He appears concerned about being away from his dog. M4 PT-IP Mobility and Gait Start: 12/10/24 09:25 Freq: NEEDED Status: Active Protocol: Document 12/11/24 15:42 MB (Rec: 12/11/24 15:54 MB [id number]) PT-Transfer Assessment Sit to and From Stand Sit to and from Stand Standby Assistance Equipment Transfer Assistive Device Gait Belt Orthotic/Prosthetic Devices or Brace: No Transfers Transfer Destination Bed Transfer Technique Ambulation Transfer Ability Level of Assist Standby Assistance Comments Mobility Comments O2 sats on 1L O2 decrease to 86% with short gait Gait Assessment Gait Gait Assistance Required: Standby Assistance Distance (Feet) 20 Assistive Devices Assistive Device Gait Belt Orthotic/Prosthetic Devices or Brace: No Gait Deviations General Gait Pattern Flexed Trunk,Wide Based Gait Factors Limiting Gait Function Factors Limiting Gait Function Difficulty Following Directions,Poor Balance,Poor Safety Awareness PT-Balance Assessment Sitting Balance and Reactions Static Sitting Balance Ability Normal Dynamic Sitting Balance Ability Good Standing Balance and Reactions Static Standing Balance Ability Good Dynamic Standing Balance Ability Good M5 PT-IP Objective Assessments Start: 12/10/24 09:25 Freq: NEEDED Status: Active Protocol: Document 12/10/24 10:45 MB (Rec: 12/10/24 11:30 MB [id number]) Orientation Orientation/Cognition Level of Alertness Confusional State Orientation Name,Birthday Safety Awareness Decreased Safety Awareness Memory Description Short Term Impaired,Usp Impaired Comments Pt does not answer all questions when asked and makes tangental conversation/ remarks. May benefit from cognitive assessment/OT consult Gross Range of Motion Upper Extremity ROM Impairments Pt does not follow commands, PT does not perceive limitations with functional mobility and orthostatics Lower Extremity ROM Impairments B LE with mild edema and small scabs Strength Comments Strength Comments Pt does not follow ROM or MMT commands Coordination Assessment Assessment Coordination Comments Pt does not follow commands Sensation Assessment Comments Sensation Comments Pt does not follow commands M6 PT-IP Treatment Start: 12/10/24 09:25 Freq: NEEDED Status: Active Protocol: Document 12/11/24 15:42 MB (Rec: 12/11/24 15:54 MB [id number]) Physical Therapy Treatment Education Education Provided Safety M7 PT-IP Assessment and Plan Start: 12/10/24 09:25 Freq: NEEDED Status: Active Protocol: Document 12/11/24 15:42 MB (Rec: 12/11/24 15:54 MB [id number]) PT Summary Assessment and Plan Potential Rehabilitation Potential Fair Status of Condition at Evaluation Evolving Summary Impairments Pain,ROM,Strength,Balance, Coordination,Sensation, Cognition,Bed Mobility, Transfers,Gait,Activity Tolerance Progress Towards Goals Slow Progress - Other Assessment Summary Pt sitting up on EOB and initially agreeable to PT. Once up and PT trying to check O2 sats on 1L with gait, pt becomes very agitated and wishes to stop and be left alone. He appears concerned about being away from his dog. Pt is able to stoop down and chart picker and don slippers today without LOB and he gait trains partially around bed with PT managing lines before he becomes agitated. Goals Bed Mobility Goal Independent Transfer Goal Independent,Cane,Front Wheeled Walker,Four Wheeled Walker Gait Goal Independent,Cane,Front Wheel Walker,Four Wheel Walker Gait Distance 100 Other Goals Pt will ascend and descend 7 steps with LRAD and no more than CGA to allow safe home entrance. Days to Meet Goals 5 Frequency of Treatment Frequency Of Treatment Once a Day Treatment Plan Physical Therapy Treatment Plan Bed Mobility Training,Transfer Training,Gait Training, Therapeutic Exercise,Balance Retraining,Discharge Planning, Hot or Cold Pack,Neuromuscular Re-ed,Coordination Retraining ,Manual Therapy Recommendations To Nursing Amount of Assist Needed 1 Person Assist Discharge Recommendations PT Discharge Recommendations Home with Assistance,Home Health,SNF Rehab Transportation Needs at Discharge Private Vehicle - PT assist x1
--- NOTE | 2024-12-11 16:16 | CM.DPNOTE ---
DCP Note UNDERWATER HUNTER TRAPPER reviewed EMR PT=home vs HH vs SNF. OT= SLUMS , home vs SNF. Per RNWinnie reported pt will be here another 2 days, may need home O2. UNDERWATER HUNTER TRAPPER attempted to meet with pt x3, either working with other staff or in the bathroom. Unfortunately UNDERWATER HUNTER TRAPPER unable to meet with pt today due to triaging needs. Unsure with pt's current ability to mobilize if ins will Auth SNF after reviewing PT/OT notes, will plan to f/u about Medicaid LTC gail/[place] with pt for a detention plan. Will offer community resources for transport/meals on wheels/etc. as needed. likely good HH candidate for home RN/PT/OT/UNDERWATER HUNTER TRAPPER, will make referrals pending pt preference. GRISEL Landers
[2024-12-11] MEDS: TRAZODONE 50 MG TABLET PO (20:07)
[2024-12-11] MEDS: SODIUM CHLORIDE 0.9% FLUSH 10 ML IV (21:45)
[2024-12-12] VITALS (7 sets, daily range): BP systolic 117–137; BP diastolic 69–88; PULSE 79–91; RESP 17–20; TEMP 35.6–37.2; O2SAT 91–94
[2024-12-12] MEDS: LEVOTHYROXINE 75 MCG TABLET PO (06:10)
[2024-12-12] MEDS: ALBUTEROL/IPRATROPIUM 3 ML AMPUL INH ×3 (07:15→20:04)
[2024-12-12] MEDS: BUDESONIDE 0.5 MG/2 ML NEB INH ×2 (07:15→20:04)
[2024-12-12] MEDS: HYDROMORPHONE 2 MG TABLET 4 MG PO ×3 (07:45→20:46)
[2024-12-12] MEDS: FUROSEMIDE 40 MG/4 ML VIAL IV ×2 (07:48→17:41)
--- NOTE | 2024-12-12 08:20 | P.PN_ITS ---
Subjective Subjective Date Patient Seen: 12/12/24 Time Patient Seen: 08:21 Interval history: Basically uneventful day yesterday Patient up with skilled therapies. Has some disabilities but able to be fairly independent. Scored rather poorly on slums test but OT feels like he would be safe with home health services at home, which is probably true given his status over the last several months being independent at home Breathing definitely better. Lower extremity edema definitely better. Exam Vital Signs (past 8 hours): - 12/12/24 02:00 12/12/24 07:15 Temperature 96.9 F L Pulse Rate 80 81 Respiratory Rate 17 20 Blood Pressure 122/69 Pulse Oximetry 94 91 Oxygen Delivery Method Nasal Cannula Oxygen Flow Rate 1 1 Fraction of Inspired Oxygen 24 Fraction of Inspired Oxygen 24 SaO2/FiO2 Ratio 383 Oxygen Delivery Method Nasal Cannula Oxygen Flow Rate 1 Objective Labs 12/10/24 08:53 12/11/24 07:03 [facility] Medical History Uncomplicated opioid dependence Chronic back pain Hypertension COPD (chronic obstructive pulmonary disease) Chronic diarrhea of unknown origin (06/18/15) Bilateral low back pain without sciatica (06/18/15) Chronic depression (06/18/15) Smoker unmotivated to quit (06/18/15) Mixed hyperlipidemia Gastroesophageal reflux disease with esophagitis History of adenomatous polyp of colon (04/15/11) Agustin's esophagus without dysplasia (~2009) Primary insomnia (04/15/11) Surgical History History of lobectomy of lung Family History Mother Congenital heart defect Social History marital status: number of children: 0 household members: none lives independently: Yes caregiver/support person: No housing: other (Mobile home) pets and animals: Yes education level: middle school (7th Grade) occupational status: other (Retired, permanent disability) current occupational exposures/hazards: No Previous occupational history: Various kamini/gnosticism: Non-yarsanism leisure activities: other (Dog walks) Smoking Status: Current every day smoker Tobacco: How many years used: 40 Smokeless tobacco user: other (Cigarettes) quit status: has quit before alcohol intake: current substance use type: does not use Assessment & Plan Assessment & Plan narrative: 1. COPD exacerbation-patient with severe COPD. continue with oral corticosteroids frequent nebulizers Etcetera. Will evaluate for home oxygen as well, which seems necessary. Likely ready to be discharged either later today or tomorrow when home oxygen and home health services can be arranged 2. Possible congestive heart failure- continue with parental diuresis which he has been quite effective in reducing his lower extremity edema, until discharge home. When returning home will resume usual dose torsemide 3. Acute kidney injury- stable despite diuresis. No concerns at this time 4. Hypertension-no change in medication for now. Continue to monitor. Remains off lisinopril which was discontinued because of his acute kidney injury. Patient does have normal left ventricular function so no indication on the basis of cardiomyopathy for an BAYRON inhibitor 5. Lower extremity edema- as above continue with the aggressive parental diuretics and oral antibiotics. 6. Hypothyroidism-patient identified with minimally elevated TSH and low T4 upon admission. Will continue with thyroid replacement therapy for now and as an outpatient at home. Will follow up with this as an outpatient down the road 7. Disposition-patient unlikely to qualify for assisted placement nor is he likely to agree to that. Plan at this point is to discharge home with home health services when all details can be arranged perhaps as early as later this afternoon but more likely tomorrow. Will trust that the [facility] care management team can assist in this process. Still needs to be evaluated by respiratory therapy for home oxygen COVID-19 COVID-19 status: Not tested Time-Based Coding :: [TOTAL MINUTES] spent with patient and on the chart (including review of chart, obtaining history, exam, reviewing outside data, placing orders, documenting exam and treatment plan, and counseling patient) on [DATE]. Quality VTE Deep Vein Thrombosis/Pulmonary Embolism Present on Admission: No IH PROFEE Twister In Document charge(s): Yes Charge Codes Subsequent inpatient/observation care: [id number]
[2024-12-12] MEDS: predniSONE 20 MG TABLET 40 MG PO (08:48)
[2024-12-12] MEDS: PANTOPRAZOLE DR 40 MG TABLET PO (08:48)
[2024-12-12] MEDS: NICOTINE 21 MG PATCH TOP (08:48)
[2024-12-12] MEDS: ENOXAPARIN 40 MG/0.4 ML SYRINGE SUBCUT (08:49)
[2024-12-12] MEDS: cephALEXin 250 MG CAPSULE 500 MG PO ×3 (08:49→20:46)
[2024-12-12] MEDS: SODIUM CHLORIDE 0.9% FLUSH 10 ML IV ×2 (09:15→20:48)
--- NOTE | 2024-12-12 11:22 | PT.IPTN ---
Current Diagnoses Primary insomnia (12/07/24) Essential (primary) hypertension (12/07/24) Heart failure, unspecified (12/07/24) Chronic obstructive pulmonary disease with (acute) exacerbation (12/07/24) Cellulitis of right lower limb (12/07/24) Acute kidney failure, unspecified (12/07/24) Edema, unspecified (12/07/24) Physical Therapy Treatment Note M2 PT-IP Current Condition Start: 12/10/24 09:25 Freq: NEEDED Status: Active Protocol: Document 12/10/24 10:45 MB (Rec: 12/10/24 11:30 MB [id number]) Physical Therapy Current Condition Current Condition Evaluation Date 12/10/24 Treatment Diagnosis SOB in setting of advanced COPD, no O2 at home M3 PT-IP Subjective Start: 12/10/24 09:25 Freq: NEEDED Status: Active Protocol: Document 12/12/24 10:58 KS (Rec: 12/12/24 12:31 KS [id number]) Subjective Physical Therapy Visit Type Type Treatment Note Visit Start Time 10:58 Visit Stop Time 11:22 Number of DATA ENGINEER Visits 1 Physical Therapy Visit Comments Patient Comments Pt in chair on 1L O2 agreeable to PT. M4 PT-IP Mobility and Gait Start: 12/10/24 09:25 Freq: NEEDED Status: Active Protocol: Document 12/12/24 10:58 KS (Rec: 12/12/24 12:31 KS [id number]) PT-Transfer Assessment Sit to and From Stand Sit to and from Stand Standby Assistance Equipment Transfer Assistive Device Gait Belt,Front Wheeled Walker Orthotic/Prosthetic Devices or Brace: No Transfers Transfer Destination Chair Transfer Ability Level of Assist Standby Assistance Comments Mobility Comments Pt in chair upon arrival on 1L O2 at 94%. He was able to complete ankle pumps, quad sets, glute sets and seated marching with o2 ranging from 93-96%. He then performed sit< >stand w/ FWW as pt states he has been using FWW while mobilizing in room. He was able to perform 3x 20-[address] with short rest breaks to monitor O2 throughout. O2 between 91- 96%. Gait Assessment Gait Gait Assistance Required: Standby Assistance Assistive Devices Assistive Device Gait Belt,Front Wheeled Walker Orthotic/Prosthetic Devices or Brace: No Gait Deviations General Gait Pattern Flexed Trunk,Wide Based Gait Comments Gait Comments Marching in place. 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 May benefit from cognitive assessment/OT consult Gross Range of Motion Upper Extremity ROM Impairments Pt does not follow commands, PT does not perceive limitations with functional mobility and orthostatics Lower Extremity ROM Impairments B LE with mild edema and small scabs Strength Comments Strength Comments Pt does not follow ROM or MMT commands Coordination Assessment Assessment Coordination Comments Pt does not follow commands Sensation Assessment Comments Sensation Comments Pt does not follow commands M6 PT-IP Treatment Start: 12/10/24 09:25 Freq: NEEDED Status: Active Protocol: Document 12/12/24 10:58 KS (Rec: 12/12/24 12:31 KS [id number]) Physical Therapy Treatment Exercises Exercises Ankle Pumps,Gluteal Sets,Quad Sets,Straight Leg Raises Education Education Provided Safety M7 PT-IP Assessment and Plan Start: 12/10/24 09:25 Freq: NEEDED Status: Active Protocol: Document 12/12/24 10:58 KS (Rec: 12/12/24 12:31 KS [id number]) PT Summary Assessment and Plan Potential Rehabilitation Potential Fair Summary Impairments Pain,ROM,Strength,Balance, Coordination,Sensation, Cognition,Bed Mobility, Transfers,Gait,Activity Tolerance Assessment Summary Pt able to maintain o2 in low to mid 90s on 1L during exercises, seated marching, and marching in place today. Somewhat difficult to maintain focus on treatment however able to redirect focus. Anticipate pt will be able to go home with home health services and FWW for energy conservation. Goals Bed Mobility Goal Independent Transfer Goal Independent,Cane,Front Wheeled Walker,Four Wheeled Walker Gait Goal Independent,Cane,Front Wheel Walker,Four Wheel Walker Gait Distance 100 Other Goals Pt will ascend and descend 7 steps with LRAD and no more than CGA to allow safe home entrance. Days to Meet Goals 5 Frequency of Treatment Frequency Of Treatment Once a Day Treatment Plan Physical Therapy Treatment Plan Bed Mobility Training,Transfer Training,Gait Training, Therapeutic Exercise,Balance Retraining,Discharge Planning, Hot or Cold Pack,Neuromuscular Re-ed,Coordination Retraining ,Manual Therapy Recommendations To Nursing Amount of Assist Needed 1 Person Assist Discharge Recommendations PT Discharge Recommendations Home with Assistance,Home Health,SNF Rehab Transportation Needs at Discharge Private Vehicle - PT assist x1
--- NOTE | 2024-12-12 12:00 | OT.IP.TRT ---
Current Diagnoses Primary insomnia (12/07/24) Essential (primary) hypertension (12/07/24) Heart failure, unspecified (12/07/24) Chronic obstructive pulmonary disease with (acute) exacerbation (12/07/24) Cellulitis of right lower limb (12/07/24) Acute kidney failure, unspecified (12/07/24) Edema, unspecified (12/07/24) Occupational Therapy Treatment Note M2 OT-IP Current Condition Start: 12/11/24 10:16 Freq: Status: Active Protocol: Document 12/11/24 10:16 CGR (Rec: 12/11/24 10:46 CGR [id number]) Occupational Therapy Current Condition Current Condition Evaluation Date 12/11/24 Treatment Diagnosis COPD excerbation, CHF Diagnosis Onset Date 12/07/24 M3 OT- IP Subjective and Pain Start: 12/11/24 10:16 Freq: Status: Active Protocol: Document 12/12/24 12:29 CCC (Rec: 12/12/24 12:39 [facility] [id number]) OT- Subjective Occupational Therapy Visit Type Visit Start Time 11:48 Visit Stop Time 12:11 Occupational Therapy Visit Comments Patient Comments Pt agreed to work with OT. Patient/Caregiver Goals TO go home. OT Pain Assessment Pain When Pain Assessed During Mobility Pain Present Pain Present Pain Reported Location Feet Pain Behaviors Facial Grimacing M4 OT- IP ADL's Start: 12/11/24 10:16 Freq: Status: Active Protocol: Document 12/11/24 10:16 CGR (Rec: 12/11/24 10:46 CGR [id number]) OT [id number] Comments OT Self-Feeding Comments not meal time, per nursing, pt ate breakfast without difficulty OT ADL-Grooming Comments OT Grooming Comments pt declined OT ADL-Oral Care Comments Oral Care Comments pt declined OT ADL-Dressing General Eval Lower Body Dressing Ability Standby Assistance Areas Needing Assistance Shoes Comments OT Dressing Comments slip on shoes OT ADL-Toileting General Evaluation Toileting Ability Independent Comments OT Toileting Comments urination standing at toilet OT ADL-Bathing Comments OT Bathing Comments not performed M5 OT- IP IADL's Start: 12/11/24 10:16 Freq: Status: Active Protocol: Document 12/11/24 10:16 CGR (Rec: 12/11/24 10:46 CGR [id number]) OT-Instrumental Activities of Daily Living Deficits IADL Deficits Identified Deficits Home Safety Awareness Awareness of Need for Assistance at Home Decreased Awareness Ability to Problem Solve Emergency Unable to Problem Solve Situations Medication Management Medication Management Comments concerns regarding pts ability to perform safely Money Management Money Management Comments concerns regarding pts ability to perform safely Meal Preparation Meal Preparation Comments concerns regarding pts ability to perform safely Smasher Smasher Comments concerns regarding pts ability to perform safely Driving Driving Comments concerns regarding pts ability to perform safely, pt states that he drives regularly if he feels up to it. Chart says he uses EMS for transportion to [place]. M6 OT- IP Functional Cognition Start: 12/11/24 10:16 Freq: Status: Active Protocol: Document 12/12/24 12:29 [facility] (Rec: 12/12/24 12:39 [facility] [id number]) Cognitive Factors Limiting Selfcare Function Cognitive Comments Cognitive Assessment Comments Pt able to follow commands for needs. Pt needing vc for O2 tube management needs. Pt still a little unsteady on his feet. Able to go over energy conservation strategies to use at home with pt. M7 OT- IP Mobility and Balance Start: 12/11/24 10:16 Freq: Status: Active Protocol: Document 12/12/24 12:29 [facility] (Rec: 12/12/24 12:39 [facility] [id number]) OT-Transfer Assessment Sit to and From Stand Sit to and from Stand Standby Assistance Transfers Transfer Ability Standby Assistance,Contact Guard Assistance Technique Transfer Destination Bed,Chair,Toilet Transfer Technique Stand Step Pivot Devices Transfer Assistive Devices None Comments Mobility Comments Pt able to ambulate in the room wit close SBA and occasional CGA for balance. Pt able to manage his O2 tubing line. OT- Balance Assessment Sitting Balance and Reactions Static Sitting Balance Ability Normal Dynamic Sitting Balance Ability Normal Standing Balance and Reactions Static Standing Balance Ability Good Dynamic Standing Balance Ability Fair M8 OT- IP Objective Assessments Start: 12/11/24 10:16 Freq: Status: Active Protocol: Document 12/11/24 10:16 CGR (Rec: 12/11/24 10:46 CGR [id number]) OT Gross Range of Motion Upper Extremity Range of Motion Assessment Within Functional Limits OT Strength Upper Extremity Strength Assessment Within Functional Limits Comments Strength Comments grossly 5/5 OT- Coordination Assessment Upper Extremity Finger to Nose Test Within Functional Limits Finger Tapping Test Within Functional Limits OT-Muscle Tone Assessment Muscle Tone WNL Yes OT Sensation Assessment Edema Edema Absent M9 OT- IP Assessment and Plan Start: 12/11/24 10:16 Freq: Status: Active Protocol: Document 12/12/24 12:29 [facility] (Rec: 12/12/24 12:39 [facility] [id number]) OT Summary Assessment and Plan Potential Rehabilitation Potential Good Analytic Complexity at Evaluation Low Summary OT Impairments Functional Cognition,Activity Tolerance Progress Towards Goals Progressing Toward Goals Assessment Summary Pt O2 on 1L and at 94% and able to walk in the room without a device with close SBA and occasional CGA due to unsteady on his feet. Pt would benefit from short skilled rehab but insistent on going home and therefore would benefit from home health and assist at home. Goals Grooming Goal Independent Dressing Goal Independent Toileting Goal Independent Bathing Goal Independent Toilet Transfer Goal Independent Shower Transfer Goal Independent Days to Meet Goals 7 Frequency of Treatment Other frequency 5x per week Treatment Plan OT Treatment Plan ADL Training,Functional Cognition Training,Functional Mobility,Patient/Family Education,Discharge Planning Discharge Recommendations OT Discharge Recommendations Home with 05/04 Assist Available,Home Health,SNF Rehab,Home vs SNF Transportation Needs at Discharge Private Vehicle
[2024-12-12] MEDS: OXYCODONE IR 5 MG TABLET PO (13:20)
[2024-12-12] MEDS: hydrOXYzine HCL 25 MG TABLET PO (13:22)
--- NOTE | 2024-12-12 16:18 | CM.DPNOTE ---
DCP note PEANUT SEPARATOR reviewed EMR per Winnie note, anticipate dc tomorrow pending medically stable/home O2/coordinated DCP. PEANUT SEPARATOR had multiple lengthy DCP conversations with pt throughout day. Provided community resources information for [facility] [employer] transport, meals on wheels, and additional community supports. pt reports he's already established with meals on wheels. pt reports he has some service with the [facility] that provides 4hrs of caregiving per day that is starting today, was not sure name of program. pt adamantly denies SNF rehab, preference to return home. reports he is open to HH, no preference for agency. no hx of HH. PEANUT SEPARATOR will place referral with [facility] per rotating vendor calender. agrees to let this PEANUT SEPARATOR share the contact numbers for his sister/neighbor that's watching his dog with [facility] in case pt has phone issues when they attempt to reach him to schedule. pt unsure if the number for his sister is still correct. Pt reports he would be interested in Medicaid LTC gail, PEANUT SEPARATOR provided blank copy and pt reports he would look into it. PEANUT SEPARATOR to help as needed. pt reports he would need transport help home, maybe one of his neighbors could come get him. GABO Dias emailed Cherelle at [facility] initial referral information. Cherelle reports they are able to accept. blank f2f behind FS, order needed. anticipate HH of RN/PT/OT/PEANUT SEPARATOR. send dc sum at mo. PEANUT SEPARATOR confirmed with Eliazar from [facility] no Medicaid transport benefits. PEANUT SEPARATOR lvm with sister Camilla ([phone]) and Neighbor Monserrat Velázquez ([phone]), no response as of 1630. Per RT, plan to eval for home O2 afternoon today. P: anticipate home with [facility] to follow pending medical stability, likely new home O2. transport plan pending. continue to follow for Medicaid LTC gail questions/additional community resources GRISEL Landers
[2024-12-12] MEDS: TRAZODONE 50 MG TABLET PO (20:48)
[2024-12-13 02:00] VITALS: BP 136/82; PULSE 88; RESP 18; TEMP 36.1; O2SAT 92
[2024-12-13] MEDS: HYDROMORPHONE 2 MG TABLET 4 MG PO ×3 (04:05→13:03)
[2024-12-13] MEDS: LEVOTHYROXINE 75 MCG TABLET PO (06:34)
--- NOTE | 2024-12-13 06:52 | P.DS_ITS ---
History of Present Illness History of Present Illness Date Patient Seen: 12/13/24 Time Patient Seen: 06:52 Chief complaint: increased SOB Narrative: 64-year-old male, well known to me, continuous active cigarette smoker with severe COPD who has been failing at home. He has been advised to seek hospital care multiple times in fact my staff called 911 and he was DM asked to evaluate him almost a week ago on the 01 of December. Apparently he has been having increasing shortness a breath at home, EMS this morning found him with an oxygen saturation on room air of 70% or so. He has been having increased swelling of his lower extremities with increased redness. He was seen here in our emergency department on Wednesday the 27 of November thought to have a mild cellulitis and some mild lower extremity edema. Patient declined to be admitted for hospitalization at that time Patient has a horrible social situation at home. He was transportation he was quite limited at times he has been able to get out to get his medications including antibiotics prescribed for him during his last ER visit here at [facility] he was apparently out of prednisone which he takes chronically for his COPD because he either can not get to the pharmacy or as he puts it they do not have it (which seems unlikely). In any event he was transported to [facility] Emergency Department, he was found to be modestly hypoxic. He was evidence of an elevated BUN and maybe some volume overload on chest x-ray. He was an acute kidney injury with his creatinine double to 1.6. Electrolytes and CBC essentially unremarkable. Venous blood gas suggests chronic hypercapnia, not surprising given his severe COPD. His legs are felt to be minimally edematous for him and without evidence of active infection Patient now agrees for inpatient hospitalization. While he admits his breathing he was not good he was convinced that the irritation itching redness and swelling in his lower extremities that is causing his breathing to be bad. He thinks he was biggest problem has to do with his lower extremities. Unclear whether not he ever got the antibiotic therapy that was prescribed for him after his November 27 ER visit. Discharge Providers Provider Date of admission: 12/07/24 12:20 Discharge Date: 12/13/24 Primary care physician: Robert Zhou MD Consults: 12/07/24 12:58 Consult to Cardio/Pulmonary Rehabilitation Routine Comment: Physician Instructions: Evaluate and treat Consult to Discharge Planning Routine Comment: Needs lotsa assistance at home 12/08/24 08:19 Consult to Physical Therapy Evaluate & Treat Comment: Physician Instructions: Evaluate and Treat 12/11/24 07:42 Consult to Occupational Therapy Evaluate & Treat Comment: Physician Instructions: Evaluate and treat Discharge provider: Robert Zhou MD Summary Hospital Course Discharge Diagnosis: 1. COPD exacerbation 2. Acute on chronic respiratory failure 3. Congestive heart failure with preserved left ventricular ejection fraction 4. Acute kidney injury 5. Hypertension 6. Hyperlipidemia 7. Hypothyroidism, new diagnose 8. Uncomplicated opioid dependence 9. Major cognitive dysfunction 10. Smoker unmotivated to quit 11. Chronic back pain 12. Cellulitis lower extremities 13. Lower extremity/peripheral edema Hospital Course: As above, patient was admitted because of weakness respiratory failure hypoxia etcetera. ER evaluation demonstrated both obvious COPD exacerbation as well as congestive heart failure. He was treated for his COPD exacerbation with frequent nebulizers and parental steroids. With this he did improve significantly, his oxygen requirement dropped significantly. He did show evidence of chronic respiratory failure with changes to his acid-base balance and bicarbonate level on his venous blood gas. He was carefully titrated to a minimum amount of oxygen replacement, and he was still requiring very minimal oxygen replacement therapy at time of discharge. He will be set up with a tapering course of prednisone at home. Continue with his home meds which include frequent nebulized treatments including nebulized steroids as well as bronchodilators and anticholinergics. He will have home oxygen therapy initiated as well Patient also showed evidence of volume overload/congestive heart failure. He had significant lower extremity edema. He was treated with parental Lasix with good urinary output and nice near resolution of his lower extremity edema. Repeat echocardiography failed to demonstrate any new left ventricular dysfunction and showed persistence of some degree of probable early cor pulmonale based on his lung disease with elevated right heart pressures etcetera. His lower extremities also showed evidence of low-grade cellulitis he was treated initially with parental antibiotics (given the failure of outpatient oral abx), and eventually switched to oral antibiotics and continued to do well in this regard Patient had thyroid checked upon admission found to have an elevated TSH and reduced T4 and he was started on thyroid replacement therapy which will be continued, and monitored as an outpatient. Patient also demonstrated some evidence of very mild acute kidney injury which quickly resolved during this hospitalization, and despite the diuresis, no evidence of any further kidney issues were identified Patient's blood pressure adequately controlled. He had his BAYRON inhibitor discontinued because of the acute kidney injury and blood pressure remained adequately controlled without that during this hospitalization Patient was evaluated by skilled therapies including occupational therapy who performed a slums exam for which he scored poorly, suggesting some significant cognitive decline. However patient adamantly refused placement in correction and will be discharged home to continued rehabilitation with the assistance of home health services. This does NOT appear to be an acute decline, much more chronic, so felt to be safe for DC home with additional assistance. Patient was also chronically nicotine dependent and used a nicotine patch. Discussions were held with him regarding the importance of cigarette smoking cessation to his overall health including his severe lung disease Patient also has a significantly difficult home social situation. Patient seen in consultation by care management team who provided all resources available for assistance for patient in the community at home Status at Discharge Cognitive/behavioral status at discharge: at baseline, oriented and at baseline, confused Functional status at discharge: uses cane/walker Overall status at discharge: patient is progressing back to baseline Time Spent with Patient Time spent: Greater than 30 minutes Time spent discussing smoking cessation with patient: more than 10 minutes Exam Vital Signs (past 8 hours): - 12/13/24 02:00 Temperature 96.9 F L Pulse Rate 88 Respiratory Rate 18 Blood Pressure 136/82 Pulse Oximetry 92 Oxygen Flow Rate 1 Fraction of Inspired Oxygen 24 SaO2/FiO2 Ratio 391 Oxygen Delivery Method Nasal Cannula Oxygen Flow Rate 1 Narrative Exam Narrative: Older than stated age appearing male in no obvious distress sitting at a bedside table with some scattered end expiratory wheezing obvious HEENT unremarkable Lungs-diminished breath sounds and expiratory wheezing no crackles Heart-regular rate and rhythm Abdomen-benign Extremities-1+ edema right lower extremity, 0 to trace edema left lower extremity, chronic venous stasis kind of erythema present pretibially bilaterally, improved over admission state bilaterally Objective Labs 12/10/24 08:53 12/11/24 07:03 [facility] Medical History Uncomplicated opioid dependence Chronic back pain Hypertension COPD (chronic obstructive pulmonary disease) Chronic diarrhea of unknown origin (06/18/15) Bilateral low back pain without sciatica (06/18/15) Chronic depression (06/18/15) Smoker unmotivated to quit (06/18/15) Mixed hyperlipidemia Gastroesophageal reflux disease with esophagitis History of adenomatous polyp of colon (04/15/11) Agustin's esophagus without dysplasia (~2009) Primary insomnia (04/15/11) Surgical History History of lobectomy of lung Family History Mother Congenital heart defect Social History marital status: number of children: 0 household members: none lives independently: Yes caregiver/support person: No housing: other (Mobile home) pets and animals: Yes education level: middle school (7th Grade) occupational status: other (Retired, permanent disability) current occupational exposures/hazards: No Previous occupational history: Various kamini/hinduism: Non-sikh leisure activities: other (Dog walks) Smoking Status: Current every day smoker Tobacco: How many years used: 40 Smokeless tobacco user: other (Cigarettes) quit status: has quit before alcohol intake: current substance use type: does not use Discharge Assessment & Plan Assessment and Plan Plan of Treatment: Okay to discharge home Continue frequent nebulizers, including nebulized steroids as well as oral prednisone to be tapered as an outpatient. Low-level continuous oxygen replacement therapy at 1 liter/minute Continue home diuretics with torsemide 60 mg daily. Complete a course of oral antibiotic therapy as an outpatient for another 5 days Continue on levothyroxine for very mild hypothyroidism and monitor as an outpatient Home health services to assist in rehabbing patient as well as if possible social insurance administrator to evaluate options for additional care and support at home Strongly recommend smoking cessation Discharge Plan Discharge Plan Patient Disposition: Home Health Service Transfer to: [facility] Discharge orders & Medications Prescriptions: New cephalexin 250 mg Capsule 500 mg PO TID Qty: 15 0RF prednisone 20 mg Tablet 30 mg PO DAILY Qty: 60 0RF Rx Instructions: or as directed by physician levothyroxine [Synthroid] 75 mcg Tablet 75 mcg PO DAILY@0600 Qty: 90 0RF Continued (DME) nebulizer and compressor Device See Rx Instructions .Route Qty: 1 0RF Rx Instructions: As directed albuterol sulfate [Ventolin HFA] 90 mcg/actuation HFA aerosol inhaler See Rx Instructions .ROUTE .COMPLEX Qty: 18 6RF Dose Instruction: inhale 1 to 2 puffs by mouth every 4 hours if needed Rx Instructions: inhale 1 to 2 puffs by mouth every 4 hours if needed albuterol sulfate 2.5 mg /3 mL (0.083 %) solution for nebulization 2.5 mg inhalation QID PRN (Reason: shortness of breath or wheezing) Qty: 180 3RF pantoprazole 40 mg tablet,delayed release (DR/EC) 40 mg PO DAILY Qty: 30 11RF ipratropium bromide 0.02 % solution 2.5 ml inhalation QID Qty: 150 7RF fluticasone propionate 50 mcg/actuation spray,suspension 2 spray Intranasal HS Qty: 16 3RF hydrocodone-acetaminophen 10-325 mg tablet 1 - 2 tab PO Q4HP PRN (Reason: back pain) Qty: 220 0RF torsemide 20 mg tablet 60 mg PO DAILY Qty: 270 3RF (DME) Disabled Parking See Rx Instructions .ROUTE .MEDSUPPLY Qty: 1 0RF Rx Instructions: Patient qualifies for disabled parking as per the attached form. budesonide 0.5 mg/2 mL suspension for nebulization 0.5 mg inhalation BID Qty: 60 6RF Discontinued lisinopril 20 mg tablet 20 mg PO DAILY Qty: 90 3RF prednisone 20 mg tablet 10 mg PO DAILY Qty: 90 0RF Follow up/Referrals: Robert Zhou MD [Primary Care Provider] - 1 Week Diet/Activity/Treatments Diet: Diet as Tolerated and Low-sodium Oxygen: 1 l/min NC continuous Visit Report/Discharge Packet Stand Alone Forms: Congestive Heart Failure, Patient Portal/API Discharge Data Primary Care Provider: Robert Zhou Quality VTE Deep Vein Thrombosis/Pulmonary Embolism Present on Admission: No [facility] PROFEE Charge Codes Discharge inpatient/observation: [id number]
--- NOTE | 2024-12-13 08:12 | PT.IPTN ---
Current Diagnoses Primary insomnia (12/07/24) Essential (primary) hypertension (12/07/24) Heart failure, unspecified (12/07/24) Chronic obstructive pulmonary disease with (acute) exacerbation (12/07/24) Cellulitis of right lower limb (12/07/24) Acute kidney failure, unspecified (12/07/24) Edema, unspecified (12/07/24) Physical Therapy Treatment Note M2 PT-IP Current Condition Start: 12/10/24 09:25 Freq: NEEDED Status: Active Protocol: Document 12/13/24 07:49 SP (Rec: 12/13/24 10:35 SP [id number]) Physical Therapy Current Condition Current Condition Evaluation Date 12/10/24 Treatment Diagnosis SOB in setting of advanced COPD, no O2 at home M3 PT-IP Subjective Start: 12/10/24 09:25 Freq: NEEDED Status: Active Protocol: Document 12/13/24 07:49 SP (Rec: 12/13/24 10:35 SP [id number]) Subjective Physical Therapy Visit Type Type Treatment Note Visit Start Time 07:49 Visit Stop Time 08:12 Number of POSTING SPECIALIST Visits 2 Physical Therapy Visit Comments Patient Comments Pt in chair on 1L O2 agreeable to PT. Pt reports nervous 7 steps enter home might collapse on him or staff that come to assist him. He stated will look into someone help fix vs install ramp when able. M4 PT-IP Mobility and Gait Start: 12/10/24 09:25 Freq: NEEDED Status: Active Protocol: Document 12/13/24 07:49 SP (Rec: 12/13/24 10:35 SP [id number]) PT-Bed Mobility Assessment Supine to Sit Supine to Sit Standby Assistance Scooting Scooting to Edge of Bed Standby Assistance PT-Transfer Assessment Sit to and From Stand Sit to and from Stand Standby Assistance,1 Person Assistance,Use of Upper Extremities Equipment Transfer Assistive Device Gait Belt,Front Wheeled Walker Orthotic/Prosthetic Devices or Brace: No Transfers Transfer Destination Chair Transfer Technique ambulated with FWW Transfer Ability Level of Assist Standby Assistance,Use of Upper Extremities Comments Mobility Comments Pt SBA with cues for log roll & SL>sit, scoot to EOB heavy BUEs, ed use UEs on bed to sit , HOB flat (like home) challenging decreased strength , cued breath. Vitals WNL seated EOB 96% SaO2 1L but SOB, BP 103/59 HR 94. Sit> Stand SBA pushing from bed SBA use of FWW gait around room, ed for self managing O2 tubing, Mod cues for safety, got wrapped up at feet no LOB . Able to maintain SaO2 91% on 1L gait 30 ft inroom. Needed to return to chair for breath and tiring recovery. Able to complete 2 portable step of 7 has home to manage (he states steps aren't in good condition at home might collapse), used 1 SPC support CGA asc/ desc inroom before had to sit down reported light headed and need to sit. SaO2 desatto 83% , cues for breath increased to 93% on 1L. Ed for slower pacing, breath for saturation. Education use of FWW at this time with slow movement which performed for breath and energy conservation, verbalized understanding. The stairs is harder than I thought. Pt decreased strength and endurance at this time and safety concern for O2 tubing mgt fall risk. Would benefit from continued PT and OT for safety further skilled services. Gait Assessment Gait Gait Assistance Required: Standby Assistance Distance (Feet) 30 Able to Maintain Weight Bearing Status Yes During Gait Assistive Devices Assistive Device Gait Belt,Front Wheeled Walker Orthotic/Prosthetic Devices or Brace: No Gait Deviations General Gait Pattern Antalgic,Flexed Trunk,Wide Based Gait Factors Limiting Gait Function Factors Limiting Gait Function Decreased Activity Tolerance, Decreased Strength,Poor Balance,Poor Safety Awareness, Respiratory Distress Comments Gait Comments see mobility comments Stair Climbing Assessment Evaluation Level of Assist On Stairs Contact Guard Assistance,1 Person Assistance Devices Stair Climbing Assistive Devices Straight Cane Technique/Endurance Stair Climbing Direction Ascend and Descend Stair Climbing Technique Step to Step Number of Steps Climbed 1 Stair Climbing Set # Repetitions (reps) 2 Comments Stair Climbing Comments (Portable 4 step used)cues for SPC positioning and O2 Tubing mgt safety, trunk sways, no LOB, CGA. Reported lightheaded and SOB stopped to go sit. NOt able to complete 7 stairs has home to enter. PT-Balance Assessment Sitting Balance and Reactions Static Sitting Balance Ability Normal Dynamic Sitting Balance Ability Normal Standing Balance and Reactions Static Standing Balance Ability Good Dynamic Standing Balance Ability Fair Device Used SBA with FWW M5 PT-IP Objective Assessments Start: 12/10/24 09:25 Freq: NEEDED Status: Active Protocol: Document 12/10/24 10:45 MB (Rec: 12/10/24 11:30 MB [id number]) Orientation Orientation/Cognition Level of Alertness Confusional State Orientation Name,Birthday Safety Awareness Decreased Safety Awareness Memory Description Short Term Impaired,Prison Impaired Comments Pt does not answer all questions when asked and makes tangental conversation/ remarks. May benefit from cognitive assessment/OT consult Gross Range of Motion Upper Extremity ROM Impairments Pt does not follow commands, PT does not perceive limitations with functional mobility and orthostatics Lower Extremity ROM Impairments B LE with mild edema and small scabs Strength Comments Strength Comments Pt does not follow ROM or MMT commands Coordination Assessment Assessment Coordination Comments Pt does not follow commands Sensation Assessment Comments Sensation Comments Pt does not follow commands M6 PT-IP Treatment Start: 12/10/24 09:25 Freq: NEEDED Status: Active Protocol: Document 12/13/24 07:49 SP (Rec: 12/13/24 10:35 SP [id number]) Physical Therapy Treatment Education Education Provided Safety Other Treatments Other Treatment Performed See mobility comments ed breath, slower pacing, O2 Tubing mgt, use of FWW at this time neeed for energy conservation, safety and strength support. Ed continue check O2 levels and discussed if can get portable ramp installed for safety enter home. Pt reports nervous steps collapse on him or staff that come to assist him. M7 PT-IP Assessment and Plan Start: 12/10/24 09:25 Freq: NEEDED Status: Active Protocol: Document 12/13/24 07:49 SP (Rec: 12/13/24 10:35 SP [id number]) PT Summary Assessment and Plan Potential Rehabilitation Potential Fair Status of Condition at Evaluation Evolving Summary Impairments Pain,ROM,Strength,Balance, Coordination,Sensation, Cognition,Bed Mobility, Transfers,Gait,Activity Tolerance Progress Towards Goals Slow Progress due to Activity Tolerance,Slow Progress - Other Assessment Summary Pt able to maintain O2 low 90s with short distance gait with FWW, safety risk O2 tubing mgt self, mod cues. SOB and Desaturation 83% on 1L with report light headed during trial 2/7 (low 4) step mgt with SPC CGA, sways no LOB, (has 7 various height steps up to 8 to perform home to enter). Would benefit from continued skilled PT and OT to build strength and stability with improved breath. Will continue to assess progress. Goals Bed Mobility Goal Independent Transfer Goal Independent,Cane,Front Wheeled Walker,Four Wheeled Walker Gait Goal Independent,Cane,Front Wheel Walker,Four Wheel Walker Gait Distance 100 Other Goals Pt will ascend and descend 7 steps with LRAD and no more than CGA to allow safe home entrance. Days to Meet Goals 5 Frequency of Treatment Frequency Of Treatment Once a Day Treatment Plan Physical Therapy Treatment Plan Bed Mobility Training,Transfer Training,Gait Training, Therapeutic Exercise,Balance Retraining,Discharge Planning, Hot or Cold Pack,Neuromuscular Re-ed,Coordination Retraining ,Manual Therapy Other Recommendations and Next Treatment Continue gait, 7 step mgt with Focus SPC need enter home, [id number] mgt with FWW, O2 saturation with acitivity. Recommendations To Nursing Amount of Assist Needed 1 Person Assist Discharge Recommendations PT Discharge Recommendations Home with Assistance,Home Health,SNF Rehab,Home vs SNF Transportation Needs at Discharge Private Vehicle - PT assist x1
[2024-12-13 08:35] VITALS: BP 133/82; PULSE 88; RESP 20; TEMP 36.1; O2SAT 93
[2024-12-13] MEDS: predniSONE 20 MG TABLET 40 MG PO (08:37)
[2024-12-13] MEDS: cephALEXin 250 MG CAPSULE 500 MG PO ×2 (08:37→14:47)
[2024-12-13] MEDS: PANTOPRAZOLE DR 40 MG TABLET PO (08:37)
[2024-12-13] MEDS: FUROSEMIDE 40 MG/4 ML VIAL IV (08:38)
[2024-12-13] MEDS: SODIUM CHLORIDE 0.9% FLUSH 10 ML IV (08:38)
[2024-12-13] MEDS: NICOTINE 21 MG PATCH TOP (08:38)
[2024-12-13] MEDS: ENOXAPARIN 40 MG/0.4 ML SYRINGE SUBCUT (08:38)
[2024-12-13] MEDS: BUDESONIDE 0.5 MG/2 ML NEB INH (09:05)
[2024-12-13] MEDS: ALBUTEROL/IPRATROPIUM 3 ML AMPUL INH (09:05)
--- NOTE | 2024-12-13 10:48 | CM.DPNOTE ---
DCP Continued: Reviewed EMR and team rounds for pt?s medical status. Per provider, pt cleared for discharge and orders were placed. DCP met with pt in room, per patient, his only contact in the community is his neighbor/friend, Monserrat Velázquez ph# [phone]. He would like to request a ride from [place] but understands she has her own physical limitations with driving from [place]. Pt confirmed home O2 evaluation was completed this morning. DCP calls Monserrat Velázquez and she confirms pt's concerns of driving far distances and states there is no other friend she is aware of that can drive pt home. DCP confirms that pt does not have Medicaid transport benefits at this time. DCP completed F2F orders, SW admin kindly scanning in chart and sending to [facility]. DCP calls [employer], confirmed they are available to drive pt and it would be $55.00 to transport to [place]. DCP re-entered pt room and asked about transport via taxi, pt cannot cover the transport fee. Pt confirmed he will be able to get into a taxi van safely. DCP consulted with [employer], authorized for Taxi Voucher with [employer]. DCP will schedule taxi when all dc paperwork completed with Acute Care RN. Notified TCM team per MD request for 1 week follow up post discharge with PCP. Plan: Anticipating dc home with home O2, follow up with PCP and [facility]. Pt will transport via taxi voucher ([employer]). CM Team will continue to follow for coordination of discharge plans. EV HinsonSW
--- NOTE | 2024-12-13 12:43 | OT.IP.TRT ---
Current Diagnoses Primary insomnia (12/07/24) Essential (primary) hypertension (12/07/24) Heart failure, unspecified (12/07/24) Chronic obstructive pulmonary disease with (acute) exacerbation (12/07/24) Cellulitis of right lower limb (12/07/24) Acute kidney failure, unspecified (12/07/24) Edema, unspecified (12/07/24) Occupational Therapy Treatment Note M2 OT-IP Current Condition Start: 12/11/24 10:16 Freq: Status: Active Protocol: Document 12/11/24 10:16 CGR (Rec: 12/11/24 10:46 CGR [id number]) Occupational Therapy Current Condition Current Condition Evaluation Date 12/11/24 Treatment Diagnosis COPD excerbation, CHF Diagnosis Onset Date 12/07/24 M3 OT- IP Subjective and Pain Start: 12/11/24 10:16 Freq: Status: Active Protocol: Document 12/13/24 12:43 CCC (Rec: 12/13/24 12:51 [facility] [id number]) OT- Subjective Occupational Therapy Visit Type Type Treatment Note Visit Start Time 12:20 Visit Stop Time 12:43 Occupational Therapy Visit Comments Patient Comments Pt agreed to redo cognitive assessment. Patient/Caregiver Goals Pt is adamant to go home. OT Pain Assessment Pain When Pain Assessed At Rest Pain Present Pain Present Pain Reported M4 OT- IP ADL's Start: 12/11/24 10:16 Freq: Status: Active Protocol: Document 12/13/24 12:43 CCC (Rec: 12/13/24 12:51 [facility] [id number]) OT FAF-Jwft-Cpcbykn General Evaluation Self-Feeding Ability Independent OT ADL-Grooming Comments OT Grooming Comments pt declined OT ADL-Oral Care Comments Oral Care Comments pt declined M5 OT- IP IADL's Start: 12/11/24 10:16 Freq: Status: Active Protocol: Document 12/11/24 10:16 CGR (Rec: 12/11/24 10:46 CGR [id number]) OT-Instrumental Activities of Daily Living Deficits IADL Deficits Identified Deficits Home Safety Awareness Awareness of Need for Assistance at Home Decreased Awareness Ability to Problem Solve Emergency Unable to Problem Solve Situations Medication Management Medication Management Comments concerns regarding pts ability to perform safely Money Management Money Management Comments concerns regarding pts ability to perform safely Meal Preparation Meal Preparation Comments concerns regarding pts ability to perform safely Clinical Marketing Manager Clinical Marketing Manager Comments concerns regarding pts ability to perform safely Driving Driving Comments concerns regarding pts ability to perform safely, pt states that he drives regularly if he feels up to it. Chart says he uses EMS for transportion to [place]. M6 OT- IP Functional Cognition Start: 12/11/24 10:16 Freq: Status: Active Protocol: Document 12/13/24 12:43 [facility] (Rec: 12/13/24 12:51 [facility] [id number]) Cognitive Factors Limiting Selfcare Function Cognitive Ability Level of Alertness Alert Patient Orientation Name,Age,Birthday,Month,Date, Year,Day of Week,Place, Situation Attention Span Ability Capable of Focused Attention, Capable of Sustained Attention Ability to Follow Commands Able to Follow One Step Commands with Increased Time, Able to Follow One Step Commands with Repetition Memory Description Short Term Impaired Cognitive Tests SLUMS Pt scored 15/30 on the SLUMS today and mainly having trouble with his STM still. Cognitive Comments Cognitive Assessment Comments Pt admits that he does not remember very well usually as he take 7 Vicodins daily. Suggested pt have someone to help him especially with medication and finance needs. Pt states has been having so much trouble lately that he just gave up on paying his bills. Pt would benefit from 05/04 available assist. M7 OT- IP Mobility and Balance Start: 12/11/24 10:16 Freq: Status: Active Protocol: Document 12/12/24 12:29 [facility] (Rec: 12/12/24 12:39 [facility] [id number]) OT-Transfer Assessment Sit to and From Stand Sit to and from Stand Standby Assistance Transfers Transfer Ability Standby Assistance,Contact Guard Assistance Technique Transfer Destination Bed,Chair,Toilet Transfer Technique Stand Step Pivot Devices Transfer Assistive Devices None Comments Mobility Comments Pt able to ambulate in the room wit close SBA and occasional CGA for balance. Pt able to manage his O2 tubing line. OT- Balance Assessment Sitting Balance and Reactions Static Sitting Balance Ability Normal Dynamic Sitting Balance Ability Normal Standing Balance and Reactions Static Standing Balance Ability Good Dynamic Standing Balance Ability Fair M8 OT- IP Objective Assessments Start: 12/11/24 10:16 Freq: Status: Active Protocol: Document 12/11/24 10:16 CGR (Rec: 12/11/24 10:46 CGR [id number]) OT Gross Range of Motion Upper Extremity Range of Motion Assessment Within Functional Limits OT Strength Upper Extremity Strength Assessment Within Functional Limits Comments Strength Comments grossly 5/5 OT- Coordination Assessment Upper Extremity Finger to Nose Test Within Functional Limits Finger Tapping Test Within Functional Limits OT-Muscle Tone Assessment Muscle Tone WNL Yes OT Sensation Assessment Edema Edema Absent M9 OT- IP Assessment and Plan Start: 12/11/24 10:16 Freq: Status: Active Protocol: Document 12/13/24 12:43 [facility] (Rec: 12/13/24 12:51 [facility] [id number]) OT Summary Assessment and Plan Potential Rehabilitation Potential Good Analytic Complexity at Evaluation Low Summary OT Impairments Functional Cognition,Activity Tolerance Progress Towards Goals Progressing Toward Goals Assessment Summary Pt scored 15/30 which implies dementia , however pt states at home take 7 Vicodins which causes him to be forgetful per pt. Pt would benefit from 24/7 available assist for safety awareness and especially IADL needs and bathing. I Goals Grooming Goal Independent Dressing Goal Independent Toileting Goal Independent Bathing Goal Independent Toilet Transfer Goal Independent Shower Transfer Goal Independent Days to Meet Goals 5 Frequency of Treatment Other frequency 5x per week Treatment Plan OT Treatment Plan ADL Training,Functional Cognition Training,Functional Mobility,Patient/Family Education,Discharge Planning Discharge Recommendations OT Discharge Recommendations Home with 24/7 Assist Available,Home Health,SNF Rehab,Home vs SNF Transportation Needs at Discharge Private Vehicle
== END 2024-12-13 15:12 | disposition home health service (06) | DRG 190 ==
LOC: ED 09:05 → AC 12:20
PROVIDERS: Emergency Medicine; Family Medicine; Admitting Provider Internal Medicine; Emergency Provider Emergency Medicine; PCP Internal Medicine; Referring Provider Emergency Medicine; Visit Provider Internal Medicine
DX: J44.1 Chronic obstructive pulmonary disease with (acute) exacerbation (principal); I50.31 Acute diastolic (congestive) heart failure; J96.21 Acute and chronic respiratory failure with hypoxia; J96.22 Acute and chronic respiratory failure with hypercapnia; N17.9 Acute kidney failure, unspecified; F11.20 Opioid dependence, uncomplicated; L03.115 Cellulitis of right lower limb; L03.116 Cellulitis of left lower limb; F17.210 Nicotine dependence, cigarettes, uncomplicated; I11.0 Hypertensive heart disease with heart failure; G47.00 Insomnia, unspecified; E03.9 Hypothyroidism, unspecified; E78.5 Hyperlipidemia, unspecified; F09 Unspecified mental disorder due to known physiological condition; M54.9 Dorsalgia, unspecified; G89.29 Other chronic pain; K21.9 Gastro-esophageal reflux disease without esophagitis
CPT/HCPCS: 36415; 71045; 80048; 80053; 81001; 82550; 82805; 83605; 83735; 83880; 84145; 84436; 84443; 84484; 85014; 85018; 85025; 85610; 85730; 87040; 93005; 93010; 94618; 94640; 94762; 96374; 97110; 97116; 97162; 97165; 97530; 97535; 99223; 99233; 99239; 99285; A9270; C8929; J0696; J1650; J1938; J1940; J2919; J7613; Q9957

== ENCOUNTER → 2024-12-25 11:46 | Outpatient (CLI) | payer MEDICARE, MEDICAID, SELFPAY ==
[2024-12-07 13:02] VITALS: BMI 21.8
[2024-12-25 13:07] LABS: BUN Creatinine Ratio 23.9 (6-22); Blood Urea Nitrogen 21 mg/dL (9-20); Calcium 8.9 mg/dL (8.4-10.2); Chloride 90 mmol/L (98-107); Estimated Glomerular Filt Rate > 60 mL/min (>60); Glucose 136 mg/dL (80-110); HEMOLYSIS < 15 (0-50); Magnesium 1.4 mg/dL (1.6-2.3); Potassium 3.6 mmol/L (3.4-5.1); Sodium 137 mmol/L (137-145)
[2024-12-25 13:14] LABS: Carbon Dioxide 37 mmol/L (22-32)
== END ==
LOC: LAB 11:47
PROVIDERS: PCP Internal Medicine; Referring Provider Internal Medicine; Visit Provider Internal Medicine
DX: I10 Essential (primary) hypertension (principal); E78.2 Mixed hyperlipidemia; J44.9 Chronic obstructive pulmonary disease, unspecified; J96.10 Chronic respiratory failure, unspecified whether with hypoxia or hypercapnia; F11.20 Opioid dependence, uncomplicated
CPT/HCPCS: 36415; 80048; 83735

== ENCOUNTER → 2025-04-06 11:45 | Outpatient (CLI) | payer MEDICARE, MEDICAID, SELFPAY ==
[2024-12-07 13:02] VITALS: BMI 21.8
[2025-04-06 12:24] LABS: Add Manual Diff / Slide Review NO; Hematocrit 50.3 % (41-53); Hemoglobin 17.4 g/dL (13.5-17.5); Lymphocytes Absolute Auto 400 /uL (1100-4500); Mean Corpuscular HGB Conc 34.7 % (30-36); Mean Corpuscular Hemoglobin 35.2 PG (26-34); Mean Corpuscular Volume 101.7 fL (80-100); Platelet Count 172 X10^3/uL (150-400)
[2025-04-06 12:37] LABS: Hemoglobin A1C% w Est Avg Glu 5.4 % (4.0-6.0)
[2025-04-06 12:50] LABS: Alanine Aminotransferase 22 IU/L (<50); Albumin 4.5 g/dL (3.5-5.0); Albumin Globulin Ratio 1.5 (1.0-2.8); Alkaline Phosphatase 85 U/L (38-126); Blood Urea Nitrogen 19 mg/dL (9-20); Calcium 8.2 mg/dL (8.4-10.2); Carbon Dioxide 32 mmol/L (22-32); Chloride 91 mmol/L (98-107); Estimated Glomerular Filt Rate > 60 mL/min (>60); Globulin 3.1 g/dL (1.7-4.1); Glucose 138 mg/dL (70-99); HEMOLYSIS < 15 (0-50); Potassium 3.5 mmol/L (3.4-5.1); Sodium 135 mmol/L (137-145); Total Protein 7.6 g/dL (6.3-8.2)
[2025-04-06 13:21] LABS: TSH w/ Reflex to FT4 1.11 uIU/mL (0.47-4.68)
== END ==
PROVIDERS: PCP Internal Medicine; Referring Provider Internal Medicine; Visit Provider Internal Medicine
DX: I50.32 Chronic diastolic (congestive) heart failure (principal); J44.9 Chronic obstructive pulmonary disease, unspecified; J96.11 Chronic respiratory failure with hypoxia; J96.12 Chronic respiratory failure with hypercapnia; I10 Essential (primary) hypertension; E78.2 Mixed hyperlipidemia; R60.9 Edema, unspecified; E03.9 Hypothyroidism, unspecified
CPT/HCPCS: 36415; 80053; 83036; 84443; 85025

== ENCOUNTER 2025-06-13 12:33 | Emergency (ER) | payer MEDICARE, OTHER, SELFPAY ==
[2024-12-07 13:02] VITALS: BMI 21.8
[2025-06-13] VITALS (14 sets, daily range): BP systolic 116–144; BP diastolic 74–86; PULSE 69–96; RESP 18–38; TEMP 36.8–37.1; O2SAT 94–100; BMI 32.3
--- NOTE | 2025-06-13 12:52 | DI.RAD.S_ITS ---
PROCEDURE: XR CHEST 1V INDICATIONS: Shortness of breath TECHNIQUE: One view of the chest was acquired. COMPARISON: [facility], CR, XR CHEST 1V, 12/07/2024, 7:00. FINDINGS: Surgical changes and devices: None. Lungs and pleura: Minimal right costophrenic angle blunting. Mild increased vascularity. Mediastinum: Mediastinal contours appear normal. Heart size is mildly prominent. Bones and chest wall: No suspicious bony lesions. Overlying soft tissues appear unremarkable. IMPRESSION: Cardiomegaly with increased vascularity suggestive of edema. Right costophrenic angle blunting unchanged likely related to minimal effusion versus scarring. Dictated by: Arely Duffy M.D. on 06/13/2025 at 13:44 Approved by: Arely Duffy M.D. on 06/13/2025 at 13:45
[2025-06-13 13:19] LABS: Add Manual Diff / Slide Review NO; Hematocrit 49.6 % (41-53); Hemoglobin 16.3 g/dL (13.5-17.5); Lymphocytes Absolute Auto 900 /uL (1100-4500); Mean Corpuscular HGB Conc 32.8 % (30-36); Mean Corpuscular Hemoglobin 31.8 PG (26-34); Mean Corpuscular Volume 96.9 fL (80-100); Platelet Count 140 X10^3/uL (150-400)
--- NOTE | 2025-06-13 13:25 | EKG_ITS ---
[address] [address] Test Date: 2025-06-13 Pat Name: Jace Bautista Department: [facility] Room: Gender: Male Vice Investigator: : [id number] Requested By: Order Number: [id number] Reading MD: Trey Smith Measurements Intervals [place] Rate: 75 P: 62 NV: 164 QRS: 64 QRSD: 104 T: 60 QT: 400 QTc: 446 Interpretive Statements Normal sinus rhythm Incomplete right bundle branch block Electronically Signed On 06-13-2025 18:25:46 PDT by Trey Smith
[2025-06-13 13:28] LABS: INR 1.0 (0.9-1.3); Prothrombin Time 11.4 SECONDS (9.4-12.5)
[2025-06-13 13:33] LABS: Alanine Aminotransferase 18 IU/L (<50); Albumin 4.0 g/dL (3.5-5.0); Albumin Globulin Ratio 1.3 (1.0-2.8); Alkaline Phosphatase 77 U/L (38-126); Blood Urea Nitrogen 11 mg/dL (9-20); Calcium 8.9 mg/dL (8.4-10.2); Carbon Dioxide 35 mmol/L (22-32); Chloride 100 mmol/L (98-107); Estimated Glomerular Filt Rate > 60 mL/min (>60); Globulin 3.2 g/dL (1.7-4.1); Glucose 118 mg/dL (70-99); Lactate (Lactic Acid) 1.6 mmol/L (0.7-2.1); Potassium 4.0 mmol/L (3.4-5.1); Sodium 141 mmol/L (137-145); Total Protein 7.2 g/dL (6.3-8.2)
[2025-06-13 13:42] LABS: NT-proBNP (BNP-Adult 18+) 235 pg/mL (<125)
[2025-06-13 13:46] LABS: HEMOLYSIS < 15 (0-50); Troponin I < 0.012 ng/mL (0.01-0.034)
[2025-06-13] MEDS: ALBUTEROL MDI INH (13:58)
[2025-06-13] MEDS: ACETAMINOPHEN 325 MG TABLET 975 MG PO (14:48)
--- NOTE | 2025-06-13 15:07 | PC.NURSE ---
Pt reports previous R Upper lobectomy
[2025-06-13] MEDS: ALBUTEROL/IPRATROPIUM 3 ML AMPUL INH (15:14)
--- NOTE | 2025-06-13 16:01 | ED.SOB ---
HPI - SOB/Dyspnea General Chief Complaint: Shortness of Breath/Dyspnea Stated Complaint: COPD. unclear C/C Time Seen by Provider: 06/13/25 15:19 Source: patient, EMS, RN notes reviewed and old records reviewed Mode of arrival: EMS Limitations: no limitations History of Present Illness HPI Narrative: 64-year-old male history of COPD on 3 L daily, congestive heart failure, hypertension, dyslipidemia has not taken any medications since 05/18/2025 because he ran out of medications after being discharged from his primary care doctor's office. Patient presents with complaint of pain all over he states he has been out of his pain medications, he notes some increased shortness of breath and feels like he is fluid overloaded. He states his legs has been more swollen. He notes some redness in his hands feet and legs. He denies fevers. He states he has chronic chest pain which is always present. He has noted a productive cough which has been clear. He denies any nausea or vomiting today. He states he has been little bit constipated but had bowel movements. He notes his urine has been very yellow. Patient states he was taking prednisone daily, Vicodin he is unsure of all his other medications but torsemide, pantoprazole and levothyroxine or in his list. Patient states he has had prior upper lobectomy of the right lung for a prior infection, has chronic pain related to this. He denies any drug allergies. States he is still uses tobacco, states he has alcohol in the weekends, denies any recreational drugs. Related Data Previous Rx's ?Medication ?Instructions ?Recorded nebulizer and compressor #1 ea 01/06/22 albuterol sulfate 90 mcg/actuation See Rx Instructions .Route 03/31/23 aerosol inhaler (Ventolin HFA) .COMPLEX #18 grams albuterol sulfate 2.5 mg/3 mL 2.5 mg (3 mL) inhalation QID PRN 04/22/23 (0.083 %) solution for nebulization shortness of breath or wheezing #180 mL fluticasone propionate 50 2 spray intranasal HS #16 grams 08/07/24 mcg/actuation nasal spray,suspension Disabled Parking #1 ea 10/06/24 torsemide 20 mg tablet 60 mg (3 x 20 mg) PO DAILY #270 10/06/24 tabs levothyroxine 75 mcg tablet 75 mcg PO DAILY@0600 #90 tabs 12/12/24 (Synthroid) fluticasone 500 mcg-salmeterol 50 1 inh inhalation BID #60 ea 01/22/25 mcg/dose blistr powdr for inhalation (Advair Diskus) hydrocodone 10 mg-acetaminophen 1 - 2 tab PO Q4H PRN pain #220 tabs 01/22/25 325 mg tablet hydrocodone 10 mg-acetaminophen 1 - 2 tab PO Q4HP PRN back pain 01/22/25 325 mg tablet #220 tabs pantoprazole 40 mg tablet,delayed 40 mg PO DAILY #30 tabs 02/21/25 release prednisone 20 mg tablet 20 mg PO DAILY #30 tabs 04/06/25 hydrocodone 10 mg-acetaminophen 1 - 2 tab PO Q4H PRN pain #110 tabs 05/01/25 325 mg tablet albuterol sulfate 2.5 mg/3 mL 2.5 mg (3 mL) inhalation Q4-6H PRN 06/13/25 (0.083 %) solution for nebulization shortness of breath or wheezing #90 mL albuterol sulfate 90 mcg/actuation 2 inh inhalation Q4-6H PRN 06/13/25 aerosol inhaler shortness of breath or wheezing #8.5 grams fluticasone furoate 50 1 inh inhalation DAILY #30 ea 06/13/25 mcg/actuation blister powder for inhalation hydrocodone 5 mg-acetaminophen 325 1 tab PO Q6H PRN pain #5 tabs 06/13/25 mg tablet levothyroxine 75 mcg capsule 75 mcg PO DAILY #14 caps 06/13/25 pantoprazole 40 mg tablet,delayed 40 mg PO DAILY #14 tabs 06/13/25 release torsemide 20 mg tablet 20 mg PO DAILY #14 tabs 06/13/25 Allergies Allergy/AdvReac Type Severity Reaction Status Date / Time bupropion (BUPROPION) AdvReac Intermediate dry mouth Verified 04/06/25 10:57 mirtazapine (MIRTAZAPINE) AdvReac Intermediate mood Verified 04/06/25 10:57 instability/anger/etc amlodipine AdvReac Mild edema Verified 04/06/25 10:57 Review of Systems Review of Systems ROS Unobtainable: All systems reviewed & are unremarkable except as noted in HPI and below Patient History Medical History Chronic diastolic heart failure with preserved ejection fraction Chronic respiratory failure Uncomplicated opioid dependence Chronic back pain Hypertension COPD (chronic obstructive pulmonary disease) Chronic diarrhea of unknown origin (06/18/15) Bilateral low back pain without sciatica (06/18/15) Chronic depression (06/18/15) Smoker unmotivated to quit (06/18/15) Mixed hyperlipidemia Gastroesophageal reflux disease with esophagitis History of adenomatous polyp of colon (04/15/11) Agustin's esophagus without dysplasia (~2009) Primary insomnia (04/15/11) Surgical History History of lobectomy of lung Family History Mother Congenital heart defect Social History marital status: number of children: 0 household members: none lives independently: Yes caregiver/support person: No housing: other (Mobile home) pets and animals: Yes education level: middle school (7th Grade) occupational status: other (Retired, permanent disability) current occupational exposures/hazards: No Previous occupational history: Various kamini/latter day: Non-yazdanism leisure activities: other (Dog walks) Smoking Status: Current every day smoker Tobacco: How many years used: 40 Smokeless tobacco user: other (Cigarettes) quit status: has quit before alcohol intake: current substance use type: does not use Smoking Status: Current every day smoker tobacco type: cigarettes Exam Narrative Exam Narrative: GENERAL: Alert and oriented x three, male in mild distress HEENT: Head normocephalic, atraumatic, EOMI, pupils reactive, face symmetric, moist mucous membranes NECK: Supple, full range of motion CARDIOVASCULAR: Regular rate and rhythm without murmurs, rubs or gallops. RESPIRATORY: Breath sounds equal bilaterally, no wheezes rales or rhonchi. No tachypnea, no accessory muscle use. Patient has a occasional cough which appears wet. He can speak in full sentences. ABDOMEN: Soft, nontender. Normoactive bowel sounds all 4 quadrants. No guarding or rebound, rigidity, no mass : No CVA tenderness EXTREMITIES: Normal range of motion, no clubbing, patient has mild edema bilaterally. Patient has some trace edema bilateral lower extremities. No warmth, no erythema. 2+ pulses bilateral lower extremities. Neurovascularly intact NEUROLOGICAL: Cranial nerves II through XII grossly intact. Moving all extremities SKIN: Warm, dry, no petechiae, no rashes or lesions. Initial Vital Signs Initial Vital Signs: Vital Signs Temperature 98.2 F 06/13/25 12:44 Pulse Rate 80 06/13/25 12:44 Respiratory Rate 24 06/13/25 12:44 Blood Pressure 116/78 06/13/25 12:44 Pulse Oximetry 98 06/13/25 12:44 Oxygen Delivery Method Nasal Cannula 06/13/25 12:44 Oxygen Flow Rate 3 06/13/25 12:44 Course Orders Ordered: ED Orders 06/13/25 12:52 XR chest 1V Stat EKG-12 Lead Stat RT Consult Eval and Treat STAT 06/13/25 13:00 Complete Blood Count AUTO DIFF Stat Comprehensive Metabolic Panel Stat Lactate (Lactic Acid) Stat NT-proBNP (BNP-Adult 18+) Stat Prothrombin Time INR Stat Troponin I Stat 06/13/25 16:25 Trop I [Troponin I] Stat 06/13/25 16:37 Consult to [facility] - Curing Machine Operator Stat Discontinued Medications Acetaminophen (Acetaminophen 325 Mg Tablet) 975 mg PO NOW ONE Stop: 06/13/25 14:30 Last Admin: 06/13/25 14:48 Dose: 975 mg Documented By: MAX Hydrocodone Bitart/Acetaminophen (Hydrocodone/Acet 5/325 Tablet) 1 tab PO NOW ONE Stop: 06/13/25 16:28 Last Admin: 06/13/25 16:31 Dose: 1 tab Albuterol (Albuterol Hfa Mdi 60 Puff/8 Gm Inhaler (Covid Only)) 2 puff INH NOW ONE Stop: 06/13/25 13:47 Last Admin: 06/13/25 13:58 Dose: 2 puff Documented By: VINITA Albuterol/Ipratropium (Albuterol/Ipratropium 3 Ml Ampul) 3 ml INH NOW ONE Stop: 06/13/25 15:09 Last Admin: 06/13/25 15:14 Dose: 3 ml Documented By: ERIN Furosemide (Furosemide 40 Mg/4 Ml Vial) 40 mg IV NOW ONE Stop: 06/13/25 16:28 Last Admin: 06/13/25 16:31 Dose: 40 mg Vital Signs Vital signs: Vital Signs - 8 hr 06/13/25 12:44 06/13/25 14:44 06/13/25 15:00 Temperature 98.2 F Pulse Rate 80 75 74 Respiratory Rate 24 24 Blood Pressure 116/78 Pulse Oximetry 98 100 98 Oxygen Delivery Method Nasal Cannula Oxygen Flow Rate 3 06/13/25 15:21 06/13/25 15:30 06/13/25 16:00 Temperature Pulse Rate 70 73 73 Respiratory Rate 18 22 32 H Blood Pressure Pulse Oximetry 97 98 94 Oxygen Delivery Method Nasal Cannula Oxygen Flow Rate 3 06/13/25 16:05 06/13/25 16:05 06/13/25 16:30 Temperature Pulse Rate 78 Respiratory Rate 25 H Blood Pressure 133/81 124/79 Pulse Oximetry 96 Oxygen Delivery Method Oxygen Flow Rate 06/13/25 16:30 06/13/25 17:00 06/13/25 17:01 Temperature Pulse Rate 74 96 H Respiratory Rate 38 H 23 Blood Pressure 144/86 H Pulse Oximetry 97 98 Oxygen Delivery Method Oxygen Flow Rate 06/13/25 17:01 06/13/25 17:30 06/13/25 17:30 Temperature Pulse Rate 82 72 Respiratory Rate 20 25 H Blood Pressure 130/78 Pulse Oximetry 96 94 Oxygen Delivery Method Oxygen Flow Rate MDM - SOB/Dyspnea Lab Data 06/13/25 13:00 06/13/25 13:00 Labs: Lab Results 06/13/25 06/13/25 Range/Units 13:00 16:35 WBC 6.1 (4.5-11.0) X10^3/uL RBC 5.12 (4.5-5.9) X10^6/uL Hgb 16.3 (13.5-17.5) g/dL Hct 49.6 (41-53) % MCV 96.9 (80-100) fL MCH 31.8 (26-34) PG MCHC 32.8 (30-36) % RDW 13.6 (11.6-14.8) % Plt Count 140 L (150-400) X10^3/uL Neut % (Auto) 70.6 (50-75) % Lymph % (Auto) 14.4 L (25-40) % [place] % (Auto) 11.9 (3-14) % Eos % (Auto) 2.3 (2-4) % Baso % (Auto) 0.8 (0-2) % Neut # (Auto) 4300 (7427-3932) /uL Lymph # (Auto) 900 L (0247-5617) /uL [place] # (Auto) 700 (0-900) /uL Eos # (Auto) 100 (0-450) /uL Baso # (Auto) 0 (0-100) /uL PT 11.4 (9.4-12.5) SECONDS INR 1.0 (0.9-1.3) Sodium 141 (137-145) mmol/L Potassium 4.0 (3.4-5.1) mmol/L Chloride 100 (98-107) mmol/L Carbon Dioxide 35 H (22-32) mmol/L BUN 11 (9-20) mg/dL Creatinine 0.72 (0.66-1.25) mg/dL Estimated GFR > 60 (>60) mL/min BUN/Creatinine Ratio 15.3 (6-22) Glucose 118 H (70-99) mg/dL Lactate 1.6 (0.7-2.1) mmol/L Calcium 8.9 (8.4-10.2) mg/dL Total Bilirubin 0.4 (0.2-1.3) mg/dL AST 25 (17-59) IU/L ALT 18 (<50) IU/L Alkaline Phosphatase 77 (38-126) U/L Troponin I < 0.012 < 0.012 (0.01-0.034) ng/mL NT-Pro-B Natriuret Pep 235 H (<125) pg/mL Total Protein 7.2 (6.3-8.2) g/dL Albumin 4.0 (3.5-5.0) g/dL Globulin 3.2 (1.7-4.1) g/dL Albumin/Globulin Ratio 1.3 (1.0-2.8) ECG Data Attestation: I personally reviewed and interpreted this ECG as follows: Prior ECG tracings: available for review Interpretation: Sinus rhythm rate of 75 LA 164 QRS of 104 QTC of 446, no acute ST elevation depression nonspecific change no acute ST-elevation or depression. MDM Narrative Medical decision making narrative: EKG shows sinus rhythm incomplete right bundle-branch block, nonspecific change. Labs show normal white count and hemoglobin platelets are 140 down from priors. INR is 1 electrolytes are appropriate CO2 is 35 BUN 11, creatinine 0.72 glucose is 118. Lactate is 1.6 LFTs are negative troponins less than 0.012 with a BNP of 235. Repeat troponin is less than 0.012 Chest x-ray shows cardiomegaly increased vascularity suggestive edema. Right costophrenic angle blunting unchanged likely related to minimal effusion versus scarring. ECHO November of 2024 shows EF of 65-70% left ventricular cavity is small, right ventricle is moderately to severely dilated right ventricular systolic function is moderately reduced. My atrium is mildly dilated. No significant valvular abnormalities. Patient received Ventolin inhaled, Tylenol and a DuoNeb. SMOCKING MACHINE OPERATOR met with the patient, he had established an appointment in August, spoke with [facility] office he has not appointment with Dr. Cheikh Galindo. The office plans to call him tomorrow to set up a sooner appointment in the next week to establish and make sure he is getting his medications. Patient states he has a concentrator, states he has plenty of oxygen. Discharge Plan Departure Patient Disposition: Home Clinical Impression: Congestive heart failure (CHF) COPD (chronic obstructive pulmonary disease) Qualifiers: COPD type: unspecified COPD Qualified Code(s): J44.9 - Chronic obstructive pulmonary disease, unspecified Activity Restrictions/Additional Instructions: You have an appointment scheduled already in August with [facility] with Dr. Cheikh Galindo. My health care social worker reached out to their office they should be calling you tomorrow to set up an appointment in the upcoming week to get you established and refill medications. Prescription for medications was sent to [facility] in [place]. Please return for new chest pain, new shortness of breath, rapidly worsening swelling, fevers or any other new or concerning changes. Prescriptions: New levothyroxine 75 mcg capsule 75 mcg PO DAILY Qty: 14 0RF torsemide 20 mg tablet 20 mg PO DAILY Qty: 14 0RF albuterol sulfate 2.5 mg /3 mL (0.083 %) solution for nebulization 2.5 mg inhalation Q4-6H PRN (Reason: shortness of breath or wheezing) Qty: 90 0RF hydrocodone-acetaminophen 5-325 mg tablet 1 tab PO Q6H PRN (Reason: pain) Qty: 5 0RF pantoprazole 40 mg tablet,delayed release (DR/EC) 40 mg PO DAILY Qty: 14 0RF albuterol sulfate 90 mcg/actuation HFA aerosol inhaler 2 inh inhalation Q4-6H PRN (Reason: shortness of breath or wheezing) Qty: 8.5 0RF fluticasone furoate 50 mcg/actuation blister with device 1 inh inhalation DAILY Qty: 30 0RF No Action (DME) nebulizer and compressor Device See Rx Instructions .Route Qty: 1 0RF Rx Instructions: As directed albuterol sulfate [Ventolin HFA] 90 mcg/actuation HFA aerosol inhaler See Rx Instructions .ROUTE .COMPLEX Qty: 18 6RF Dose Instruction: inhale 1 to 2 puffs by mouth every 4 hours if needed Rx Instructions: inhale 1 to 2 puffs by mouth every 4 hours if needed albuterol sulfate 2.5 mg /3 mL (0.083 %) solution for nebulization 2.5 mg inhalation QID PRN (Reason: shortness of breath or wheezing) Qty: 180 3RF pantoprazole 40 mg tablet,delayed release (DR/EC) 40 mg PO DAILY Qty: 30 11RF hydrocodone-acetaminophen 10-325 mg tablet 1 - 2 tab PO Q4H MDD 8 tabs PRN (Reason: pain) Qty: 110 0RF fluticasone propionate 50 mcg/actuation spray,suspension 2 spray Intranasal HS Qty: 16 3RF torsemide 20 mg tablet 60 mg PO DAILY Qty: 270 3RF (DME) Disabled Parking See Rx Instructions .ROUTE .MEDSUPPLY Qty: 1 0RF Rx Instructions: Patient qualifies for disabled parking as per the attached form. hydrocodone-acetaminophen 10-325 mg tablet 1 - 2 tab PO Q4H MDD 8 tabs PRN (Reason: pain) Qty: 220 0RF hydrocodone-acetaminophen 10-325 mg tablet 1 - 2 tab PO Q4HP PRN (Reason: back pain) Qty: 220 0RF fluticasone propion-salmeterol [Advair Diskus] 500-50 mcg/dose blister with device 1 inh inhalation BID Qty: 60 3RF prednisone 20 mg tablet 20 mg PO DAILY Qty: 30 1RF levothyroxine [Synthroid] 75 mcg Tablet 75 mcg PO DAILY@0600 Qty: 90 0RF Referrals: Miscellaneous,Doctor, MD [Primary Care Provider, Medical] Stand Alone Forms: Patient Portal/API
[2025-06-13] MEDS: FUROSEMIDE 40 MG/4 ML VIAL IV (16:31)
--- NOTE | 2025-06-13 16:39 | CM.SWNOTE ---
Addendum entered by Karie Lew 06/13/25 16:52: Upon providing senior resource guide, patient reports that he has two at home. Patient states he left his oxygen at home, per ED provider patient will need BLS upon d/c due to need for oxygen. DEVAUGHN Mena Addendum entered by Karie Lew 06/13/25 16:47: SENIOR BUSINESS DEVELOPMENT MANAGER to provide patient with senior resource guide as well. DEVAUGHN Mena Original Note: ED SENIOR BUSINESS DEVELOPMENT MANAGER Note Patient is 64 y/o male who presents to ED via EMS due to concern for increased SOB, extremity swelling and concern for not taking rx. Patient was dismissed from Dr. Zhou's care due to chronic cancelations and no shows. Patient is in between PCPs, patient states that he has [employer] insurance that just started today. Patient has hx of COPD and chronic O2 3L use. It is reported that ED provider that patient is in need of PCP and he is open to go to any clinic. SENIOR BUSINESS DEVELOPMENT MANAGER calls [facility] on [address]. It is reported that patient has appt scheduled with provider Michelle Galindo, DAMION, VISUAL DESIGNER, [employer] REPAIRER-[employer] for August. SENIOR BUSINESS DEVELOPMENT MANAGER endorses that patient is in the ED for SOB, unable to refill rx. It is reported that they will call patient tomorrow to schedule sooner appt with patient. Patient endorses he uses a FWW and cane at home and endorses he has some foot and leg swelling. Patient endorses that he is working with [facility] and [facility] to establish care with a caregiver. Patient endorses that when he had HH in the past he wasn't able to participate in PT, SENIOR BUSINESS DEVELOPMENT MANAGER discusses talking about HH with new PCP. Patient endorses that he does not have anyone that can pick him up and states he will need a taxi but he left his wallet at home. Plan: Patient likely to d/c to home upon medical clearance, patient will need taxi voucher upon d/c. [facility] clinic to f/u with patient for PCP f/u, patient to refill rx from ED provider's prescriptions today. DEVAUGHN Mena
[2025-06-13 17:10] LABS: Troponin I < 0.012 ng/mL (0.01-0.034)
== END 2025-06-13 19:02 | disposition home or self-care (01) ==
PROVIDERS: Emergency Provider Emergency Medicine
DX: J44.9 Chronic obstructive pulmonary disease, unspecified (principal); I50.9 Heart failure, unspecified; I45.10 Unspecified right bundle-branch block; I51.7 Cardiomegaly
CPT/HCPCS: 36415; 71045; 80053; 83605; 83880; 84484; 85025; 85610; 93005; 94640; 96374; 99285; A9270; J1938